=== PATIENT | female | born 1940 | race Caucasian/White ===

== ENCOUNTER 2018-01-16 21:28 | Inpatient (IN) | payer MEDICARE, OTHER ==
[~2018-01-16] VITALS: Ht 152.4 cm; Wt 99.0 kg
[2018-01-16 21:40] VITALS: BP 140/71
[2018-01-16] MEDS ORDERED: Albuterol/Ipratropium 3ml neb HHN ONE (22:30)
[2018-01-16 23:30] VITALS: BP 94/35
[2018-01-17 01:00] VITALS: BP 126/28
--- NOTE | 2018-01-17 01:32 | Emergency Room Report ---
History of Present Illness General Chief Complaint: Dyspnea/Respdistress Source: Patient, EMS Present Illness HPI Patient is 77-year-old female brought in by EMS after increased difficulty breathing. Patient had normally been followed over at [facility]. The patient reports having the onset of symptoms approximately one to 2 hours prior to arrival. Patient had previous surgery to the left breast. Allergies: Coded Allergies: CLINDAMYCIN (Verified Allergy, Unknown, 01/16/18) PENICILLINS (Verified Allergy, Unknown, 01/16/18) PHENYTOIN (Verified Allergy, Unknown, 01/16/18) Patient History Past Medical History: see triage record Now: No Reviewed Nursing Documentation: PMH: Agreed, PSxH: Agreed Nursing Documentation-PMH Hx Hypertension: Yes Hx Cancer: Yes - breast Physical Exam Vital Signs Date Time Temp Pulse Resp B/P (MAP) Pulse Ox O2 Delivery O2 Flow Rate FiO2 01/16/18 21:28 97.7 90 20 140/71 100 Nasal Cannula 2.0 97.7 01/16/18 23:47 28 General Appearance: alert, mild distress, Chronically Ill Eyes: bilateral eye normal inspection ENT: normal pharynx, normal voice Neck: limited range of motion Respiratory: no respiratory distress, crackles Cardiovascular #1: normal peripheral pulses, regular rate, rhythm, edema Gastrointestinal: normal bowel sounds, non tender, soft Genitourinary: no CVA tenderness Musculoskeletal: normal inspection Neurologic: normal inspection, alert, oriented x3, responsive, 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 Differential included but was not limited to anemia, pneumonia, pneumothorax, myocardial infarction, pericardial effusion, congestive heart failure, acidosis. Because of complexity of patient' s case laboratory testing and imaging studies were ordered.The patient was given breathing treatment. She was noted to have evidence of pneumonia on chest x-ray. Patient started on IV Levaquin. The patient was noted to be allergic to penicillin and clindamycin. Urinalysis showed too numerous to count white blood cells consistent with urinary infection. Dr. Medina was contacted for Dr. Bazzi inpatient management Labs Test 01/17/18 01:05 01/17/18 01:20 01/17/18 01:30 White Blood Count 8.5 K/UL (4.8-10.8) Red Blood Count 4.31 M/UL (4.20-5.40) Hemoglobin 11.3 G/DL (12.0-16.0) Hematocrit 35.3 % (37.0-47.0) Mean Corpuscular Volume 82 FL (80-99) Mean Corpuscular Hemoglobin 26.2 PG (27.0-31.0) Mean Corpuscular Hemoglobin Concent 31.9 G/DL (32.0-36.0) Red Cell Distribution Width 16.7 % (11.6-14.8) Platelet Count 249 K/UL (150-450) Mean Platelet Volume 8.0 FL (6.5-10.1) Neutrophils (%) (Auto) 65.2 % (45.0-75.0) Lymphocytes (%) (Auto) 21.6 % (20.0-45.0) Monocytes (%) (Auto) 10.7 % (1.0-10.0) Eosinophils (%) (Auto) 1.6 % (0.0-3.0) Basophils (%) (Auto) 0.9 % (0.0-2.0) Sodium Level 142 MMOL/L (136-145) Potassium Level 2.8 MMOL/L (3.5-5.1) Chloride Level 105 MMOL/L (98-107) Carbon Dioxide Level 33 MMOL/L (21-32) Anion Gap 5 mmol/L (5-15) Blood Urea Nitrogen 13 mg/dL (7-18) Creatinine 0.8 MG/DL (0.55-1.30) Estimat Glomerular Filtration Rate mL/min (>60) Glucose Level 111 MG/DL (74-106) Calcium Level 9.2 MG/DL (8.5-10.1) Phosphorus Level 3.0 MG/DL (2.5-4.9) Magnesium Level 1.4 MG/DL (1.8-2.4) Total Bilirubin 0.3 MG/DL (0.2-1.0) Aspartate Amino Transf (AST/SGOT) 23 U/L (15-37) Alanine Aminotransferase (ALT/SGPT) 28 U/L (12-78) Alkaline Phosphatase 145 U/L (46-116) Total Creatine Kinase 140 U/L (26-308) Creatine Kinase MB 2.2 NG/ML (0.0-3.6) Creatine Kinase MB Relative Index 1.5 Troponin I 0.068 ng/mL (0.000-0.056) Pro-B-Type Natriuretic Peptide 2057 pg/mL (0-125) Total Protein 5.7 G/DL (6.4-8.2) Albumin 2.5 G/DL (3.4-5.0) Globulin 3.2 g/dL Albumin/Globulin Ratio 0.8 (1.0-2.7) Lactic Acid Level 0.60 mmol/L (0.66-2.22) Urine Color Yellow Urine Appearance Cloudy Urine pH 6 (4.5-8.0) Urine Specific [place] 1.015 (1.005-1.035) Urine Protein 2+ (NEGATIVE) Urine Glucose (UA) Negative (NEGATIVE) Urine Ketones Negative (NEGATIVE) Urine Occult Blood 2+ (NEGATIVE) Urine Nitrite Negative (NEGATIVE) Urine Bilirubin Negative (NEGATIVE) Urine Urobilinogen 1 MG/DL (0.0-1.0) Urine Leukocyte Esterase 3+ (NEGATIVE) Urine RBC 2-4 /HPF (0 - 2) Urine WBC Tntc /HPF (0 - 2) Urine Squamous Epithelial Cells Many /LPF (NONE/OCC) Urine Bacteria Many /HPF (NONE) EKG Diagnostic Results Rate: normal Rhythm: NSR ST Segments: no acute changes Rhythm Strip Diag. Results EP Interpretation: yes Rhythm: NSR, no PVC's, no ectopy Last Vital Signs Date Time Temp Pulse Resp B/P (MAP) Pulse Ox O2 Delivery O2 Flow Rate FiO2 01/16/18 23:50 78 20 100 Nasal Cannula 2.0 28 01/16/18 21:40 97.7 140/71 97.7 Status: unchanged Disposition: ADMITTED INPATIENT Condition: Serious Referrals: NOT CHOSEN IPA/,REFERRING (PCP) Kirk Pascual Jan 17, 2018 01:32
[2018-01-17 01:54] LABS: BASOPHILS % (AUTO) 0.9 % (0.0-2.0); EOSINOPHILS % (AUTO) 1.6 % (0.0-3.0); HEMATOCRIT 35.3 % (37.0-47.0); HEMOGLOBIN 11.3 G/DL (12.0-16.0); LYMPHOCYTES % (AUTO) 21.6 % (20.0-45.0); MEAN CORPUSCULAR VOLUME 82 FL (80-99); MONOCYTES % (AUTO) 10.7 % (1.0-10.0); NEUTROPHILS % (AUTO) 65.2 % (45.0-75.0); PLATELET COUNT 249 K/UL (150-450); RED BLOOD COUNT 4.31 M/UL (4.20-5.40); RED CELL DISTRIBUTION WIDTH 16.7 % (11.6-14.8); WHITE BLOOD COUNT 8.5 K/UL (4.8-10.8)
[2018-01-17 01:57] LABS: BILIRUBIN, URINE NEGATIVE (NEGATIVE); GLUCOSE, URINE (UA) NEGATIVE (NEGATIVE); KETONES,URINE NEGATIVE (NEGATIVE); LEUKOCYTE ESTERASE ,URINE 3+ (NEGATIVE); NITRITE,URINE NEGATIVE (NEGATIVE); PH,URINE 6 (4.5-8.0); PROTEIN,URINE 2+ (NEGATIVE); UROBILINOGEN,URINE 1 MG/DL (0.0-1.0)
[2018-01-17 02:03] LABS: ANION GAP 5 mmol/L (5-15); BLOOD UREA NITROGEN 13 mg/dL (7-18); CALCIUM 9.2 MG/DL (8.5-10.1); CARBON DIOXIDE 33 MMOL/L (21-32); CHLORIDE 105 MMOL/L (98-107); CREATININE 0.8 MG/DL (0.55-1.30); POTASSIUM 2.8 MMOL/L (3.5-5.1); SODIUM 142 MMOL/L (136-145)
[2018-01-17 02:09] LABS: APPEARANCE,URINE CLOUDY; COLOR,URINE YELLOW
[2018-01-17 02:20] LABS: ALANINE AMINOTRANSFERASE 28 U/L (12-78); ALBUMIN 2.5 G/DL (3.4-5.0); ALBUMIN/GLOBULIN RATIO 0.8 (1.0-2.7); ALKALINE PHOSPHATASE 145 U/L (46-116); ASPARTATE AMINO TRANSFERASE 23 U/L (15-37); BILIRUBIN,TOTAL 0.3 MG/DL (0.2-1.0); CKMB 2.2 NG/ML (0.0-3.6); CREATINE KINASE 140 U/L (26-308)
[2018-01-17 02:30] VITALS: BP 110/60
[2018-01-17] MEDS ORDERED: BENICAR5 MG ORAL (03:42)
[2018-01-17] MEDS ORDERED: MECLIZINE HCL25 MG ORAL (03:42)
[2018-01-17] MEDS ORDERED: NAMENDA5 MG ORAL (03:42)
[2018-01-17] MEDS ORDERED: FERROUS SULFAT325 MG ORAL (03:42)
[2018-01-17] MEDS ORDERED: DYMISTA NASAL S23 GM NS (03:42)
[2018-01-17] MEDS ORDERED: PLAVIX75 MG ORAL (03:42)
[2018-01-17] MEDS ORDERED: CYMBALTA30 MG ORAL (03:42)
[2018-01-17] MEDS ORDERED: POTASSIUM99 M3 PO (03:42)
[2018-01-17] MEDS ORDERED: LIDOCAINE5 GM TP (03:42)
[2018-01-17 04:15] VITALS: BP 104/37
[2018-01-17] MEDS ORDERED: Hydromorphone 0.5mg/0.5ml inj IVP PRN ×2 (04:15→12:45)
[2018-01-17] MEDS ORDERED: Albuterol/Ipratropium 3ml neb HHN PRN ×2 (04:15→13:30)
[2018-01-17 06:00] VITALS: BP 134/62
[2018-01-17 08:00] VITALS: BP 129/52
[2018-01-17] MEDS ORDERED: Memantine 5 MG TAB ORAL SCH (09:00)
[2018-01-17] MEDS: DULoxetine 30mg cap ORAL SCH (10:21)
[2018-01-17] MEDS: Memantine 10mg tab ORAL SCH (10:22)
[2018-01-17] MEDS: Heparin 5000 units/ml inj SUBQ SCH ×2 (10:22→21:00)
--- NOTE | 2018-01-17 11:30 | Diagnostic Imaging Report ---
Indication: Shortness of breath Technique: One view of the chest Comparison: none Findings: Body habitus limits evaluation. The heart is enlarged. There is mild interstitial congestion. No focal airspace consolidation. However, imaging of the left lung base is limited overlying soft tissue. There severe chronic abnormalities of both shoulders Impression: Limited exam, as described Cardiomegaly Suspect mild interstitial congestion
[2018-01-17] MEDS ORDERED: HYDROcodone/Acetamin 7.5/325 tab ORAL PRN (12:15)
[2018-01-17] MEDS ORDERED: Norco 5mg/325mg tab ORAL PRN (12:15)
--- NOTE | 2018-01-17 12:17 | History and Physical ---
History of Present Illness General Date patient seen: Jan 17, 2018 Time patient seen: 12:17 Reason for Hospitalization: Dyspnea/Respdistress Present Illness HPI 77y/o female with pmh of morbid obesity, chronic diastolic heart failure, pulmonary hypertension, HTN, probable MISSY, abd wall hernia s/p multiple surgeries, SBO, breast cancer s/p lumpectomy and mastectomy, who presents with SOB and abd discomfort w/ swelling. Pt states symptoms have been worsening over the past few weeks. She notes cough with white sputum, congestion. Also c/o heartburn. Normally she can ambulate w/ walker but has been limited 2/2 SOB and because of increasing abd swelling. Notes increased drainage from abd wounds. She states she has multiple prior abd surgeries which have been complicated by wound failure and infection. She had one episode leading to sepsis and was in ICU for 1 month. Denies f/c, n/v, chest pain, dysuria. In ED, there was concern for pneumonia and UTI. Pt was given levaquin, duonebs. Allergies: Coded Allergies: CLINDAMYCIN (Verified Allergy, Unknown, 01/16/18) PENICILLINS (Verified Allergy, Unknown, 01/16/18) PHENYTOIN (Verified Allergy, Unknown, 01/16/18) Medication History Scheduled Clopidogrel Bisulfate* (Plavix*), 75 MG ORAL DAILY, (Reported) Duloxetine Hcl* (Cymbalta*), 30 MG ORAL DAILY, (Reported) Ferrous Sulfate* (Ferrous Sulfate*), 325 MG ORAL DAILY, (Reported) Meclizine Hcl* (Meclizine*), 25 MG ORAL THREE TIMES A DAY, (Reported) Memantine Hcl* (Namenda*), 5 MG ORAL DAILY, (Reported) Olmesartan Medoxomil (Benicar), 5 MG ORAL DAILY, (Reported) Miscellaneous Medications Azelastine/Fluticasone (Dymista Nasal [place]), 23 GM NS, (Reported) Lidocaine (Lidocaine), 5 GM TP, (Reported) Potassium Gluconate (Potassium), 99 MG PO, (Reported) Patient History History Provided By: Patient, Family Member, Medical Record, PMD Healthcare decision maker Resuscitation status Full Code Advanced Directive on File Past Medical/Surgical History Past Medical/Surgical History: (1) Chronic diastolic (congestive) heart failure (2) Morbid obesity (3) Probable MISSY (4) HTN (hypertension) (5) Bilateral breast cancer (6) SBO (small bowel obstruction) (7) Abdominal wall hernia (8) Pulmonary hypertension (9) breast cacncer s/p lumpectomy and mastectomy Family History Family History: Patient reports no known family medical history. Social History Social History: (1) Lives alone with help available Review of Systems Constitutional: Reports: malaise, weakness Eye: Reports: no symptoms ENT: Reports: no symptoms Respiratory: Reports: cough, shortness of breath, MANZANARES Cardiovascular: Reports: no symptoms Gastrointestinal: Reports: abdominal pain Genitourinary: Reports: no symptoms Musculoskeletal: Reports: no symptoms Skin: Reports: no symptoms Psychiatric: Reports: no symptoms Neurological: Reports: no symptoms Endocrine: Reports: no symptoms Hematologic/Lymphatic: Reports: no symptoms Physical Exam Physical Exam Narrative General: alert, cooperative, no distress, appears stated age Head: normocephalic, without obvious abnormality, atraumatic Eyes: conjunctivae/corneas clear. PERRL, EOM's intact Throat: lips, mucosa, and tongue normal. MMM Neck: supple, symmetrical, trachea midline, and no JVD Lungs: clear to auscultation bilaterally Heart: regular rate and rhythm, S1, S2 normal, no murmur, click, rub or gallop Abdomen: soft, obese abd, +large pannus, panniculitis around superficial lower left, prior surgical scars noted, serous drainage noted around pannus from superficial abrasions Extremities: extremities normal, atraumatic, no cyanosis or edema Pulses: 2+ and symmetric Skin: skin color, texture, turgor normal; no rashes or lesions Neurologic: grossly normal, no focal deficits Last 24 Hour Vital Signs Date Time Temp Pulse Resp B/P (MAP) Pulse Ox O2 Delivery O2 Flow Rate FiO2 01/17/18 06:00 97.9 69 18 134/62 96 Nasal Cannula 2.0 97.9 01/17/18 05:30 67 01/17/18 04:39 97.7 72 18 104/37 100 Nasal Cannula 2.0 28 97.7 01/17/18 04:15 72 18 104/37 100 Nasal Cannula 2.0 01/17/18 02:30 71 19 110/60 100 Nasal Cannula 2.0 01/17/18 01:00 78 19 126/28 99 Nasal Cannula 2.0 28 01/16/18 23:50 78 20 100 Nasal Cannula 2.0 28 01/16/18 23:48 74 20 Nasal Cannula 2.0 28 01/16/18 23:47 74 20 100 Nasal Cannula 2.0 28 01/16/18 23:30 72 19 94/35 100 Room Air 01/16/18 21:40 90 20 Nasal Cannula 2.0 01/16/18 21:40 97.7 20 140/71 100 Nasal Cannula 2.0 97.7 01/16/18 21:28 97.7 90 20 140/71 100 Nasal Cannula 2.0 97.7 Intake and Output 01/16/18 01/17/18 19:00 07:00 Intake Total 0 ml Output Total 350 ml Balance -350 ml Intake Oral 0 ml Output Urine Total 350 ml Laboratory Tests Test 01/17/18 01:05 01/17/18 01:20 01/17/18 01:30 01/17/18 10:06 White Blood Count 8.5 K/UL (4.8-10.8) Red Blood Count 4.31 M/UL (4.20-5.40) Hemoglobin 11.3 G/DL (12.0-16.0) L Hematocrit 35.3 % (37.0-47.0) L Mean Corpuscular Volume 82 FL (80-99) Mean Corpuscular Hemoglobin 26.2 PG (27.0-31.0) L Mean Corpuscular Hemoglobin Concent 31.9 G/DL (32.0-36.0) L Red Cell Distribution Width 16.7 % (11.6-14.8) H Platelet Count 249 K/UL (150-450) Mean Platelet Volume 8.0 FL (6.5-10.1) Neutrophils (%) (Auto) 65.2 % (45.0-75.0) Lymphocytes (%) (Auto) 21.6 % (20.0-45.0) Monocytes (%) (Auto) 10.7 % (1.0-10.0) H Eosinophils (%) (Auto) 1.6 % (0.0-3.0) Basophils (%) (Auto) 0.9 % (0.0-2.0) Sodium Level 142 MMOL/L (136-145) Potassium Level 2.8 MMOL/L (3.5-5.1) L Chloride Level 105 MMOL/L (98-107) Carbon Dioxide Level 33 MMOL/L (21-32) H Anion Gap 5 mmol/L (5-15) Blood Urea Nitrogen 13 mg/dL (7-18) Creatinine 0.8 MG/DL (0.55-1.30) Estimat Glomerular Filtration Rate mL/min (>60) Glucose Level 111 MG/DL (74-106) H Calcium Level 9.2 MG/DL (8.5-10.1) Phosphorus Level 3.0 MG/DL (2.5-4.9) Magnesium Level 1.4 MG/DL (1.8-2.4) L Total Bilirubin 0.3 MG/DL (0.2-1.0) Aspartate Amino Transf (AST/SGOT) 23 U/L (15-37) Alanine Aminotransferase (ALT/SGPT) 28 U/L (12-78) Alkaline Phosphatase 145 U/L (46-116) H Total Creatine Kinase 140 U/L (26-308) Creatine Kinase MB 2.2 NG/ML (0.0-3.6) Creatine Kinase MB Relative Index 1.5 Troponin I 0.068 ng/mL (0.000-0.056) 0.053 ng/mL (0.000-0.056) Pro-B-Type Natriuretic Peptide 2057 pg/mL (0-125) H Total Protein 5.7 G/DL (6.4-8.2) L Albumin 2.5 G/DL (3.4-5.0) L Globulin 3.2 g/dL Albumin/Globulin Ratio 0.8 (1.0-2.7) L Lactic Acid Level 0.60 mmol/L (0.66-2.22) L Urine Color Yellow Urine Appearance Cloudy Urine pH 6 (4.5-8.0) Urine Specific [place] 1.015 (1.005-1.035) Urine Protein 2+ (NEGATIVE) H Urine Glucose (UA) Negative (NEGATIVE) Urine Ketones Negative (NEGATIVE) Urine Occult Blood 2+ (NEGATIVE) H Urine Nitrite Negative (NEGATIVE) Urine Bilirubin Negative (NEGATIVE) Urine Urobilinogen 1 MG/DL (0.0-1.0) H Urine Leukocyte Esterase 3+ (NEGATIVE) H Urine RBC 2-4 /HPF (0 - 2) H Urine WBC Tntc /HPF (0 - 2) H Urine Squamous Epithelial Cells Many /LPF (NONE/OCC) H Urine Bacteria Many /HPF (NONE) H Microbiology Date/Time Source Procedure Growth Status 01/17/18 03:50 Nasal Nares Influenza Types A,B Antigen (CHEYENNE) - Final Complete Height (Feet): 5 Height (Inches): 0.00 Weight (Pounds): 234 Medications Current Medications Medications (Trade) Dose Ordered Sig/Wiliam Route PRN Reason Start Time Stop Time Status Last Admin Dose Admin Acetaminophen/ Hydrocodone Bitart ([place] 5/325) 1 tab Q4H PRN ORAL Moderate Pain (Pain Scale 4-6) 01/17/18 12:15 01/24/18 12:14 UNV Acetaminophen/ Hydrocodone Bitart ([place] 7.5/325) 1 tab Q4H PRN ORAL severe pain 01/17/18 12:15 01/24/18 12:14 UNV Albuterol/ Ipratropium (Albuterol/ Ipratropium) 3 ml EVERY 6 HOURS PRN HHN Shortness of Breath 01/17/18 04:15 01/22/18 04:14 Atorvastatin Calcium (Lipitor) 20 mg BEDTIME ORAL 01/17/18 21:00 02/16/18 20:59 Clonazepam (KlonoPIN) 1 mg BEDTIME ORAL 01/17/18 21:00 01/24/18 20:59 Clopidogrel Bisulfate (Plavix) 75 mg DAILY ORAL 01/17/18 09:00 02/16/18 08:59 01/17/18 10:21 Dextrose (Dextrose 50%) STAT PRN IV Hypoglycemia 01/17/18 04:15 02/16/18 04:14 Duloxetine HCl (Cymbalta) 30 mg DAILY ORAL 01/17/18 09:00 02/16/18 08:59 01/17/18 10:21 Ferrous Sulfate (Feosol) 325 mg DAILY ORAL 01/17/18 09:00 02/16/18 08:59 01/17/18 10:21 Heparin Sodium (Porcine) (Heparin 5000 units/ml) 5,000 units EVERY 12 HOURS SUBQ 01/17/18 09:00 02/16/18 08:59 01/17/18 10:22 Hydromorphone HCl (Dilaudid) 0.5 mg EVERY 4 HOURS PRN IVP For Pain 01/17/18 04:15 01/24/18 04:14 Levofloxacin 150 ml @ 100 mls/hr Q24H IVPB 01/17/18 10:30 01/24/18 10:29 01/17/18 10:20 Magnesium Sulfate 100 ml @ 100 mls/hr Q1H IVPB 01/17/18 12:15 01/17/18 14:14 UNV Memantine (Namenda) 10 mg Q12HR ORAL 01/17/18 10:00 02/16/18 09:59 01/17/18 10:22 Non-Formulary Medication (Non-Formulary Med) 1 ea DAILY ORAL 01/17/18 12:15 02/16/18 12:14 UNV Ramelteon (Rozerem) 8 mg QHS ORAL 01/17/18 21:00 02/16/18 20:59 UNV Triamcinolone Acetonide (Kenalog 0.025% Oint) 1 applic THREE TIMES A DAY TOPIC 01/17/18 13:00 02/16/18 12:59 UNV Assessment/Plan Problem List: (1) Acute on chronic diastolic (congestive) heart failure ICD Codes: I50.33 - Acute on chronic diastolic (congestive) heart failure SNOMED: 26110481, 284892610 (2) UTI (urinary tract infection) ICD Codes: N39.0 - Urinary tract infection, site not specified SNOMED: 68272370 (3) Panniculitis ICD Codes: M79.3 - Panniculitis, unspecified SNOMED: 85112573 (4) Abdominal wall cellulitis ICD Codes: L03.311 - Cellulitis of abdominal wall SNOMED: 42861493 (5) Morbid obesity ICD Codes: E66.01 - Morbid (severe) obesity due to excess calories SNOMED: 453591512, 70020643176458 (6) Probable MISSY (7) HTN (hypertension) ICD Codes: I10 - Essential (primary) hypertension SNOMED: 62692523 (8) Hypokalemia ICD Codes: E87.6 - Hypokalemia SNOMED: 56087848 (9) Hypomagnesemia ICD Codes: E83.42 - Hypomagnesemia SNOMED: 296694707 Status: stable Assessment/Plan Initial concern for pneumonia, but CXR appears to show congestion rather than consolidation/infiltrate. Admit inpt Pulm, ID, gen surgery consulted Empiric IV abx per ID: vanco, levaquin, tobramycin for coverage of UTI, skin/ soft tissue infection F/u cultures Check CTA chest/abd/pelvis Check TTE Consider IV diuresis Cont O2 and wean as tolerated Duonebs ATC and PRN Suction PRN Swallow eval Wound care Replete lytes Cont home meds Pain control, bowel regimen Supportive care PT/OT DVT Prophylaxis: SCD, HSQ Code Status: Full Hospital Classification Declaration: Based on this initial evaluation, and depending on the patient's clinical course, I anticipate that this patient will require hospitalization for 2-3 days for UTI, panniculitis/abd wall cellulitis, CHF and close respiratory/hemodynamic monitoring. Disposition: Once the patient is stable to leave the hospital, I anticipate the patient will likely be discharged to the following environment: home with HH vs SNF (pt declines SNF) I spent 73 minutes on this patient's case, and >50% was dedicated to counseling and/or care coordination. Discussed with patient/family, nursing staff, SW/KINZA, pulm, ID, gen surg regarding clinical status, treatment course, and disposition planning. Time of note may not reflect time of encounter. Yolanda Saez M.D. Jan 17, 2018 12:17
[2018-01-17 12:40] LABS: ANION GAP 10 mmol/L (5-15); BLOOD UREA NITROGEN 11 mg/dL (7-18); CALCIUM 9.2 MG/DL (8.5-10.1); CARBON DIOXIDE 28 MMOL/L (21-32); CHLORIDE 106 MMOL/L (98-107); CREATININE 0.7 MG/DL (0.55-1.30); POTASSIUM 3.1 MMOL/L (3.5-5.1); SODIUM 144 MMOL/L (136-145)
--- NOTE | 2018-01-17 12:41 | Consultation ---
History of Present Illness General Date patient seen: Jan 17, 2018 Chief Complaint: Dyspnea/Respdistress Present Illness HPI 77-year-old female with hx of depression and anxiety d/o brought in by EMS after increased difficulty breathing. the pt has been pw anxiety as she has not taken her klonopin and roseram. the pt was cooperative and no behavioral issues. Allergies: Coded Allergies: CLINDAMYCIN (Verified Allergy, Unknown, 01/16/18) PENICILLINS (Verified Allergy, Unknown, 01/16/18) PHENYTOIN (Verified Allergy, Unknown, 01/16/18) Medication History Scheduled Clopidogrel Bisulfate* (Plavix*), 75 MG ORAL DAILY, (Reported) Duloxetine Hcl* (Cymbalta*), 30 MG ORAL DAILY, (Reported) Ferrous Sulfate* (Ferrous Sulfate*), 325 MG ORAL DAILY, (Reported) Meclizine Hcl* (Meclizine*), 25 MG ORAL THREE TIMES A DAY, (Reported) Memantine Hcl* (Namenda*), 5 MG ORAL DAILY, (Reported) Olmesartan Medoxomil (Benicar), 5 MG ORAL DAILY, (Reported) Miscellaneous Medications Azelastine/Fluticasone (Dymista Nasal [place]), 23 GM NS, (Reported) Lidocaine (Lidocaine), 5 GM TP, (Reported) Potassium Gluconate (Potassium), 99 MG PO, (Reported) Patient History Healthcare decision maker Resuscitation status Full Code Advanced Directive on File Past Medical/Surgical History Past Medical/Surgical History: (1) UTI (urinary tract infection) (2) Pneumonia Review of Systems Psychiatric: Reports: prior hx, anxiety, depressed feelings Physical Exam General Appearance: no apparent distress, alert Neurologic: alert, oriented x 3, responsive, depressed affect Last 24 Hour Vital Signs Date Time Temp Pulse Resp B/P (MAP) Pulse Ox O2 Delivery O2 Flow Rate FiO2 01/17/18 06:00 97.9 69 18 134/62 96 Nasal Cannula 2.0 97.9 01/17/18 05:30 67 01/17/18 04:39 97.7 72 18 104/37 100 Nasal Cannula 2.0 28 97.7 01/17/18 04:15 72 18 104/37 100 Nasal Cannula 2.0 01/17/18 02:30 71 19 110/60 100 Nasal Cannula 2.0 01/17/18 01:00 78 19 126/28 99 Nasal Cannula 2.0 28 01/16/18 23:50 78 20 100 Nasal Cannula 2.0 28 01/16/18 23:48 74 20 Nasal Cannula 2.0 28 01/16/18 23:47 74 20 100 Nasal Cannula 2.0 28 01/16/18 23:30 72 19 94/35 100 Room Air 01/16/18 21:40 90 20 Nasal Cannula 2.0 01/16/18 21:40 97.7 20 140/71 100 Nasal Cannula 2.0 97.7 01/16/18 21:28 97.7 90 20 140/71 100 Nasal Cannula 2.0 97.7 Intake and Output 01/16/18 01/17/18 19:00 07:00 Intake Total 0 ml Output Total 350 ml Balance -350 ml Intake Oral 0 ml Output Urine Total 350 ml Laboratory Tests Test 01/17/18 01:05 01/17/18 01:20 01/17/18 01:30 01/17/18 10:06 White Blood Count 8.5 K/UL (4.8-10.8) Red Blood Count 4.31 M/UL (4.20-5.40) Hemoglobin 11.3 G/DL (12.0-16.0) L Hematocrit 35.3 % (37.0-47.0) L Mean Corpuscular Volume 82 FL (80-99) Mean Corpuscular Hemoglobin 26.2 PG (27.0-31.0) L Mean Corpuscular Hemoglobin Concent 31.9 G/DL (32.0-36.0) L Red Cell Distribution Width 16.7 % (11.6-14.8) H Platelet Count 249 K/UL (150-450) Mean Platelet Volume 8.0 FL (6.5-10.1) Neutrophils (%) (Auto) 65.2 % (45.0-75.0) Lymphocytes (%) (Auto) 21.6 % (20.0-45.0) Monocytes (%) (Auto) 10.7 % (1.0-10.0) H Eosinophils (%) (Auto) 1.6 % (0.0-3.0) Basophils (%) (Auto) 0.9 % (0.0-2.0) Sodium Level 142 MMOL/L (136-145) Pending Potassium Level 2.8 MMOL/L (3.5-5.1) L Pending Chloride Level 105 MMOL/L (98-107) Pending Carbon Dioxide Level 33 MMOL/L (21-32) H Pending Anion Gap 5 mmol/L (5-15) Blood Urea Nitrogen 13 mg/dL (7-18) Pending Creatinine 0.8 MG/DL (0.55-1.30) Pending Estimat Glomerular Filtration Rate mL/min (>60) Pending Glucose Level 111 MG/DL (74-106) H Pending Calcium Level 9.2 MG/DL (8.5-10.1) Pending Phosphorus Level 3.0 MG/DL (2.5-4.9) Magnesium Level 1.4 MG/DL (1.8-2.4) L Total Bilirubin 0.3 MG/DL (0.2-1.0) Aspartate Amino Transf (AST/SGOT) 23 U/L (15-37) Alanine Aminotransferase (ALT/SGPT) 28 U/L (12-78) Alkaline Phosphatase 145 U/L (46-116) H Total Creatine Kinase 140 U/L (26-308) Creatine Kinase MB 2.2 NG/ML (0.0-3.6) Creatine Kinase MB Relative Index 1.5 Troponin I 0.068 ng/mL (0.000-0.056) 0.053 ng/mL (0.000-0.056) Pro-B-Type Natriuretic Peptide 2057 pg/mL (0-125) H Total Protein 5.7 G/DL (6.4-8.2) L Albumin 2.5 G/DL (3.4-5.0) L Globulin 3.2 g/dL Albumin/Globulin Ratio 0.8 (1.0-2.7) L Lactic Acid Level 0.60 mmol/L (0.66-2.22) L Urine Color Yellow Urine Appearance Cloudy Urine pH 6 (4.5-8.0) Urine Specific [place] 1.015 (1.005-1.035) Urine Protein 2+ (NEGATIVE) H Urine Glucose (UA) Negative (NEGATIVE) Urine Ketones Negative (NEGATIVE) Urine Occult Blood 2+ (NEGATIVE) H Urine Nitrite Negative (NEGATIVE) Urine Bilirubin Negative (NEGATIVE) Urine Urobilinogen 1 MG/DL (0.0-1.0) H Urine Leukocyte Esterase 3+ (NEGATIVE) H Urine RBC 2-4 /HPF (0 - 2) H Urine WBC Tntc /HPF (0 - 2) H Urine Squamous Epithelial Cells Many /LPF (NONE/OCC) H Urine Bacteria Many /HPF (NONE) H Microbiology Date/Time Source Procedure Growth Status 01/17/18 03:50 Nasal Nares Influenza Types A,B Antigen ([place]) - Final Complete Height (Feet): 5 Height (Inches): 0.00 Weight (Pounds): 234 Medications Current Medications Medications (Trade) Dose Ordered Sig/Wiliam Route PRN Reason Start Time Stop Time Status Last Admin Dose Admin Acetaminophen/ Hydrocodone Bitart ([place] 5/325) 1 tab Q4H PRN ORAL Moderate Pain (Pain Scale 4-6) 01/17/18 12:15 01/24/18 12:14 Acetaminophen/ Hydrocodone Bitart ([place] 7.5/325) 1 tab Q4H PRN ORAL Severe Pain (Pain Scale 7-10) 01/17/18 12:15 01/24/18 12:14 Albuterol/ Ipratropium (Albuterol/ Ipratropium) 3 ml EVERY 6 HOURS PRN HHN Shortness of Breath 01/17/18 04:15 01/22/18 04:14 Atorvastatin Calcium (Lipitor) 20 mg BEDTIME ORAL 01/17/18 21:00 02/16/18 20:59 Clonazepam (KlonoPIN) 1 mg BEDTIME ORAL 01/17/18 21:00 01/24/18 20:59 Clopidogrel Bisulfate (Plavix) 75 mg DAILY ORAL 01/17/18 09:00 02/16/18 08:59 01/17/18 10:21 Dextrose (Dextrose 50%) STAT PRN IV Hypoglycemia 01/17/18 04:15 02/16/18 04:14 Duloxetine HCl (Cymbalta) 30 mg DAILY ORAL 01/17/18 09:00 02/16/18 08:59 01/17/18 10:21 Ferrous Sulfate (Feosol) 325 mg DAILY ORAL 01/17/18 09:00 02/16/18 08:59 01/17/18 10:21 Heparin Sodium (Porcine) (Heparin 5000 units/ml) 5,000 units EVERY 12 HOURS SUBQ 01/17/18 09:00 4/15/18 08:59 01/17/18 10:22 Hydromorphone HCl (Dilaudid) 0.5 mg EVERY 4 HOURS PRN IVP SEVERE BREAKTHROUGH PAIN 01/17/18 12:45 01/24/18 04:14 Levofloxacin 150 ml @ 100 mls/hr Q24H IVPB 01/17/18 10:30 01/24/18 10:29 01/17/18 10:20 Magnesium Sulfate 100 ml @ 100 mls/hr Q1H IVPB 01/17/18 12:15 01/17/18 14:14 UNV Memantine (Namenda) 10 mg Q12HR ORAL 01/17/18 10:00 02/16/18 09:59 01/17/18 10:22 Non-Formulary Medication (Non-Formulary Med) 1 ea DAILY ORAL 01/17/18 12:15 02/16/18 12:14 UNV Ramelteon (Rozerem) 8 mg QHS ORAL 01/17/18 21:00 02/16/18 20:59 UNV Triamcinolone Acetonide (Kenalog 0.025% Oint) 1 applic THREE TIMES A DAY TOPIC 01/17/18 13:00 02/16/18 12:59 UNV Assessment/Plan Status: stable Assessment/Plan mdd anxiety Cymbalta 30mg q daily Klonopin 1mg qhs no roseram on formulary Jarek Kemp M.D. Jan 17, 2018 12:41
[2018-01-17] MEDS ORDERED: Triamcinolone 0.025% oint TOPIC SCH (13:00)
[2018-01-17] MEDS ORDERED: guaiFENesin 100mg/5ml Liq ud ORAL PRN (13:30)
[2018-01-17] MEDS: Pantoprazole Inj IVP SCH (13:53)
[2018-01-17] MEDS: guaiFENesin ER 600mg tab ORAL SCH ×2 (13:54→17:45)
--- NOTE | 2018-01-17 14:52 | Consultation ---
History of Present Illness General Date patient seen: Jan 17, 2018 Chief Complaint: Dyspnea/Respdistress Reason for Consultation: abdominal pain Present Illness HPI 77 year old female with multiple medical comorbidities and multiple prior complicated abdominal hernia surgeries presented with respiratory difficulty. States that she was home when she began having some respiratory difficulty. Was admitted for medical care and management. During admission states abdominal discomfort and discusses her multiple prior surgeries. States she had 6-7 prior surgeries most of which were complicated by infection and wound failure. States that on one occasion she had necrotic tissue leading to sepsis and was in the ICU in a come for 1 month. Has very large pannus with chronic abrasions and skin changes. abdominal pain described as discomfort. no obstructive symptoms. no n/v//f/c. normal BM's. surgery called to evaluate abdomen/pain Allergies: Coded Allergies: CLINDAMYCIN (Verified Allergy, Unknown, 01/16/18) PENICILLINS (Verified Allergy, Unknown, 01/16/18) PHENYTOIN (Verified Allergy, Unknown, 01/16/18) Medication History Scheduled Clopidogrel Bisulfate* (Plavix*), 75 MG ORAL DAILY, (Reported) Duloxetine Hcl* (Cymbalta*), 30 MG ORAL DAILY, (Reported) Ferrous Sulfate* (Ferrous Sulfate*), 325 MG ORAL DAILY, (Reported) Meclizine Hcl* (Meclizine*), 25 MG ORAL THREE TIMES A DAY, (Reported) Memantine Hcl* (Namenda*), 5 MG ORAL DAILY, (Reported) Olmesartan Medoxomil (Benicar), 5 MG ORAL DAILY, (Reported) Miscellaneous Medications Azelastine/Fluticasone (Dymista Nasal [place]), 23 GM NS, (Reported) Lidocaine (Lidocaine), 5 GM TP, (Reported) Potassium Gluconate (Potassium), 99 MG PO, (Reported) Patient History History Provided By: Patient, Medical Record Healthcare decision maker Resuscitation status Full Code Advanced Directive on File Past Medical/Surgical History Past Medical/Surgical History: (1) Obesities, morbid (2) Panniculitis (3) UTI (urinary tract infection) (4) Pneumonia Review of Systems All Other Systems: negative except mentioned in HPI Physical Exam General Appearance: no apparent distress Lines, tubes and drains: peripheral HEENT: normocephalic, atraumatic Neck: non-tender, supple Respiratory/Chest: chest wall non-tender, normal breath sounds, decreased breath sounds Cardiovascular/Chest: normal peripheral pulses Abdomen: soft, other - soft, non tender, over obese, very large pannus, panniculitis around superficial lower left, prior surgical scars noted. serous drainage noted around pannus from superficial abrasions Extremities: no cyanosis Neurologic: alert, oriented x 3, responsive Last 24 Hour Vital Signs Date Time Temp Pulse Resp B/P (MAP) Pulse Ox O2 Delivery O2 Flow Rate FiO2 01/17/18 06:00 97.9 69 18 134/62 96 Nasal Cannula 2.0 97.9 01/17/18 05:30 67 01/17/18 04:39 97.7 72 18 104/37 100 Nasal Cannula 2.0 28 97.7 01/17/18 04:15 72 18 104/37 100 Nasal Cannula 2.0 01/17/18 02:30 71 19 110/60 100 Nasal Cannula 2.0 01/17/18 01:00 78 19 126/28 99 Nasal Cannula 2.0 28 01/16/18 23:50 78 20 100 Nasal Cannula 2.0 28 01/16/18 23:48 74 20 Nasal Cannula 2.0 28 01/16/18 23:47 74 20 100 Nasal Cannula 2.0 28 01/16/18 23:30 72 19 94/35 100 Room Air 01/16/18 21:40 90 20 Nasal Cannula 2.0 01/16/18 21:40 97.7 20 140/71 100 Nasal Cannula 2.0 97.7 01/16/18 21:28 97.7 90 20 140/71 100 Nasal Cannula 2.0 97.7 Intake and Output 01/16/18 01/17/18 19:00 07:00 Intake Total 0 ml Output Total 350 ml Balance -350 ml Intake Oral 0 ml Output Urine Total 350 ml Laboratory Tests Test 01/17/18 01:05 01/17/18 01:20 01/17/18 01:30 01/17/18 10:06 White Blood Count 8.5 K/UL (4.8-10.8) Red Blood Count 4.31 M/UL (4.20-5.40) Hemoglobin 11.3 G/DL (12.0-16.0) L Hematocrit 35.3 % (37.0-47.0) L Mean Corpuscular Volume 82 FL (80-99) Mean Corpuscular Hemoglobin 26.2 PG (27.0-31.0) L Mean Corpuscular Hemoglobin Concent 31.9 G/DL (32.0-36.0) L Red Cell Distribution Width 16.7 % (11.6-14.8) H Platelet Count 249 K/UL (150-450) Mean Platelet Volume 8.0 FL (6.5-10.1) Neutrophils (%) (Auto) 65.2 % (45.0-75.0) Lymphocytes (%) (Auto) 21.6 % (20.0-45.0) Monocytes (%) (Auto) 10.7 % (1.0-10.0) H Eosinophils (%) (Auto) 1.6 % (0.0-3.0) Basophils (%) (Auto) 0.9 % (0.0-2.0) Sodium Level 142 MMOL/L (136-145) 144 MMOL/L (136-145) Potassium Level 2.8 MMOL/L (3.5-5.1) L 3.1 MMOL/L (3.5-5.1) L Chloride Level 105 MMOL/L (98-107) 106 MMOL/L (98-107) Carbon Dioxide Level 33 MMOL/L (21-32) H 28 MMOL/L (21-32) Anion Gap 5 mmol/L (5-15) 10 mmol/L (5-15) Blood Urea Nitrogen 13 mg/dL (7-18) 11 mg/dL (7-18) Creatinine 0.8 MG/DL (0.55-1.30) 0.7 MG/DL (0.55-1.30) Estimat Glomerular Filtration Rate mL/min (>60) mL/min (>60) Glucose Level 111 MG/DL (74-106) H 94 MG/DL (74-106) Calcium Level 9.2 MG/DL (8.5-10.1) 9.2 MG/DL (8.5-10.1) Phosphorus Level 3.0 MG/DL (2.5-4.9) Magnesium Level 1.4 MG/DL (1.8-2.4) L Total Bilirubin 0.3 MG/DL (0.2-1.0) Aspartate Amino Transf (AST/SGOT) 23 U/L (15-37) Alanine Aminotransferase (ALT/SGPT) 28 U/L (12-78) Alkaline Phosphatase 145 U/L (46-116) H Total Creatine Kinase 140 U/L (26-308) Creatine Kinase MB 2.2 NG/ML (0.0-3.6) Creatine Kinase MB Relative Index 1.5 Troponin I 0.068 ng/mL (0.000-0.056) 0.053 ng/mL (0.000-0.056) Pro-B-Type Natriuretic Peptide 2057 pg/mL (0-125) H Total Protein 5.7 G/DL (6.4-8.2) L Albumin 2.5 G/DL (3.4-5.0) L Globulin 3.2 g/dL Albumin/Globulin Ratio 0.8 (1.0-2.7) L Lactic Acid Level 0.60 mmol/L (0.66-2.22) L Urine Color Yellow Urine Appearance Cloudy Urine pH 6 (4.5-8.0) Urine Specific [place] 1.015 (1.005-1.035) Urine Protein 2+ (NEGATIVE) H Urine Glucose (UA) Negative (NEGATIVE) Urine Ketones Negative (NEGATIVE) Urine Occult Blood 2+ (NEGATIVE) H Urine Nitrite Negative (NEGATIVE) Urine Bilirubin Negative (NEGATIVE) Urine Urobilinogen 1 MG/DL (0.0-1.0) H Urine Leukocyte Esterase 3+ (NEGATIVE) H Urine RBC 2-4 /HPF (0 - 2) H Urine WBC Tntc /HPF (0 - 2) H Urine Squamous Epithelial Cells Many /LPF (NONE/OCC) H Urine Bacteria Many /HPF (NONE) H Microbiology Date/Time Source Procedure Growth Status 01/17/18 03:50 Nasal Nares Influenza Types A,B Antigen ([place]) - Final Complete Height (Feet): 5 Height (Inches): 0.00 Weight (Pounds): 234 Medications Current Medications Medications (Trade) Dose Ordered Sig/Wiliam Route PRN Reason Start Time Stop Time Status Last Admin Dose Admin Acetaminophen/ Hydrocodone Bitart ([place] 5/325) 1 tab Q4H PRN ORAL Moderate Pain (Pain Scale 4-6) 01/17/18 12:15 01/24/18 12:14 Acetaminophen/ Hydrocodone Bitart ([place] 7.5/325) 1 tab Q4H PRN ORAL Severe Pain (Pain Scale 7-10) 01/17/18 12:15 01/24/18 12:14 Albuterol/ Ipratropium (Albuterol/ Ipratropium) 3 ml Q4H PRN HHN Shortness of Breath 01/17/18 13:30 01/22/18 13:29 Albuterol/ Ipratropium (Albuterol/ Ipratropium) 3 ml Q6HRT HHN 01/17/18 19:00 01/22/18 18:59 Atorvastatin Calcium (Lipitor) 20 mg BEDTIME ORAL 01/17/18 21:00 02/16/18 20:59 Benzonatate (Tessalon Perles) 100 mg THREE TIMES A DAY ORAL 01/17/18 18:00 02/16/18 17:59 Clonazepam (KlonoPIN) 1 mg BEDTIME ORAL 01/17/18 21:00 01/24/18 20:59 Clopidogrel Bisulfate (Plavix) 75 mg DAILY ORAL 01/17/18 09:00 02/16/18 08:59 01/17/18 10:21 Dextrose (Dextrose 50%) STAT PRN IV Hypoglycemia 01/17/18 04:15 02/16/18 04:14 Duloxetine HCl (Cymbalta) 30 mg DAILY ORAL 01/17/18 09:00 02/16/18 08:59 01/17/18 10:21 Ferrous Sulfate (Feosol) 325 mg DAILY ORAL 01/17/18 09:00 02/16/18 08:59 01/17/18 10:21 Guaifenesin (Mucinex ER) 600 mg TWICE A DAY ORAL 01/17/18 13:30 02/16/18 13:29 01/17/18 13:54 Guaifenesin (Robitussin) 200 mg Q4H PRN ORAL For Cough 01/17/18 13:30 02/16/18 13:29 Heparin Sodium (Porcine) (Heparin 5000 units/ml) 5,000 units EVERY 12 HOURS SUBQ 01/17/18 09:00 02/16/18 08:59 01/17/18 10:22 Hydromorphone HCl (Dilaudid) 0.5 mg EVERY 4 HOURS PRN IVP SEVERE BREAKTHROUGH PAIN 01/17/18 12:45 01/24/18 04:14 Irbesartan (Avapro) 75 mg DAILY ORAL 01/18/18 09:00 02/17/18 08:59 Levofloxacin 150 ml @ 100 mls/hr Q24H IVPB 01/17/18 10:30 01/24/18 10:29 01/17/18 10:20 Magnesium Sulfate 100 ml @ 100 mls/hr Q1H IVPB 01/17/18 13:00 01/17/18 14:59 01/17/18 13:53 Memantine (Namenda) 10 mg Q12HR ORAL 01/17/18 10:00 02/16/18 09:59 01/17/18 10:22 Nystatin (Nystop Powder) 1 applic THREE TIMES A DAY TOPIC 01/17/18 18:00 02/16/18 17:59 UNV Pantoprazole (Protonix) 40 mg EVERY 12 HOURS IVP 01/17/18 13:30 02/16/18 13:29 01/17/18 13:53 Ramelteon (Rozerem) 8 mg QHS ORAL 01/17/18 21:00 02/16/18 20:59 Triamcinolone Acetonide (Kenalog 0.025% Oint) 1 applic THREE TIMES A DAY TOPIC 01/17/18 13:00 02/16/18 12:59 UNV Assessment/Plan Problem List: (1) Panniculitis Assessment & Plan: 77F with multiple prior abdominal surgeries for hernia with prior complications and recurrence. Has large pannus with mild superficial panniculitis. currently admitted for respiratory problems. abdominal discomfort minimal. no signs of symptoms of obstruction. hernia large and abdomen benign except for chronic issues such as pannus. -no surgical intervention necessary. -will obtain CT to evaluate for possible underlying abscess but very unlikely. on exam chronic skin changes from pannus and mild superficial abrasions from pannus on thigh with moist skin. -okay for diet -would NOT recommend hernia surgery unless emergency (not reducible or strangulated) thank you for this consult. will follow with recs ICD Codes: M79.3 - Panniculitis, unspecified SNOMED: [id number] Status: stable Adriano Lopez Jan 17, 2018 14:52
[2018-01-17] MEDS ORDERED: Tobramyicin Rx to dose MISC PRN (15:45)
--- NOTE | 2018-01-17 16:05 | Infectious Diseases Prog Note ---
Assessment/Plan Assessment/Plan Full consult dictated: A) 1) uti, ? cap, panniculitis/abdominal wall cellulitis, fungal rash 2) pmh noted 3) allergy - pcn, clindamycin, phenytoin P) 1) vancomycin, tobramycin and levofloxacin 2) check urine culture, sputum culture, labs and chest x-ray 3) ct abdomen and pelvis ordered 4) thank you Subjective Allergies: Coded Allergies: CLINDAMYCIN (Verified Allergy, Unknown, 01/16/18) PENICILLINS (Verified Allergy, Unknown, 01/16/18) PHENYTOIN (Verified Allergy, Unknown, 01/16/18) Objective Vital Signs Last 24 Hour Vital Signs Date Time Temp Pulse Resp B/P (MAP) Pulse Ox O2 Delivery O2 Flow Rate FiO2 01/17/18 08:00 97.2 66 19 129/52 98 Nasal Cannula 2.0 97.2 01/17/18 06:00 97.9 69 18 134/62 96 Nasal Cannula 2.0 97.9 01/17/18 05:30 67 01/17/18 04:39 97.7 72 18 104/37 100 Nasal Cannula 2.0 28 97.7 01/17/18 04:15 72 18 104/37 100 Nasal Cannula 2.0 01/17/18 02:30 71 19 110/60 100 Nasal Cannula 2.0 01/17/18 01:00 78 19 126/28 99 Nasal Cannula 2.0 28 01/16/18 23:50 78 20 100 Nasal Cannula 2.0 28 01/16/18 23:48 74 20 Nasal Cannula 2.0 28 01/16/18 23:47 74 20 100 Nasal Cannula 2.0 28 01/16/18 23:30 72 19 94/35 100 Room Air 01/16/18 21:40 90 20 Nasal Cannula 2.0 01/16/18 21:40 97.7 20 140/71 100 Nasal Cannula 2.0 97.7 01/16/18 21:28 97.7 90 20 140/71 100 Nasal Cannula 2.0 97.7 Height (Feet): 5 Height (Inches): 0.00 Weight (Pounds): 234 Microbiology Date/Time Source Procedure Growth Status 01/17/18 03:50 Nasal Nares Influenza Types A,B Antigen ([place]) - Final Complete Laboratory Tests Test 01/17/18 01:05 01/17/18 01:20 01/17/18 01:30 01/17/18 10:06 White Blood Count 8.5 K/UL (4.8-10.8) Red Blood Count 4.31 M/UL (4.20-5.40) Hemoglobin 11.3 G/DL (12.0-16.0) L Hematocrit 35.3 % (37.0-47.0) L Mean Corpuscular Volume 82 FL (80-99) Mean Corpuscular Hemoglobin 26.2 PG (27.0-31.0) L Mean Corpuscular Hemoglobin Concent 31.9 G/DL (32.0-36.0) L Red Cell Distribution Width 16.7 % (11.6-14.8) H Platelet Count 249 K/UL (150-450) Mean Platelet Volume 8.0 FL (6.5-10.1) Neutrophils (%) (Auto) 65.2 % (45.0-75.0) Lymphocytes (%) (Auto) 21.6 % (20.0-45.0) Monocytes (%) (Auto) 10.7 % (1.0-10.0) H Eosinophils (%) (Auto) 1.6 % (0.0-3.0) Basophils (%) (Auto) 0.9 % (0.0-2.0) Sodium Level 142 MMOL/L (136-145) 144 MMOL/L (136-145) Potassium Level 2.8 MMOL/L (3.5-5.1) L 3.1 MMOL/L (3.5-5.1) L Chloride Level 105 MMOL/L (98-107) 106 MMOL/L (98-107) Carbon Dioxide Level 33 MMOL/L (21-32) H 28 MMOL/L (21-32) Anion Gap 5 mmol/L (5-15) 10 mmol/L (5-15) Blood Urea Nitrogen 13 mg/dL (7-18) 11 mg/dL (7-18) Creatinine 0.8 MG/DL (0.55-1.30) 0.7 MG/DL (0.55-1.30) Estimat Glomerular Filtration Rate mL/min (>60) mL/min (>60) Glucose Level 111 MG/DL (74-106) H 94 MG/DL (74-106) Calcium Level 9.2 MG/DL (8.5-10.1) 9.2 MG/DL (8.5-10.1) Phosphorus Level 3.0 MG/DL (2.5-4.9) Magnesium Level 1.4 MG/DL (1.8-2.4) L Total Bilirubin 0.3 MG/DL (0.2-1.0) Aspartate Amino Transf (AST/SGOT) 23 U/L (15-37) Alanine Aminotransferase (ALT/SGPT) 28 U/L (12-78) Alkaline Phosphatase 145 U/L (46-116) H Total Creatine Kinase 140 U/L (26-308) Creatine Kinase MB 2.2 NG/ML (0.0-3.6) Creatine Kinase MB Relative Index 1.5 Troponin I 0.068 ng/mL (0.000-0.056) 0.053 ng/mL (0.000-0.056) Pro-B-Type Natriuretic Peptide 2057 pg/mL (0-125) H Total Protein 5.7 G/DL (6.4-8.2) L Albumin 2.5 G/DL (3.4-5.0) L Globulin 3.2 g/dL Albumin/Globulin Ratio 0.8 (1.0-2.7) L Lactic Acid Level 0.60 mmol/L (0.66-2.22) L Urine Color Yellow Urine Appearance Cloudy Urine pH 6 (4.5-8.0) Urine Specific [place] 1.015 (1.005-1.035) Urine Protein 2+ (NEGATIVE) H Urine Glucose (UA) Negative (NEGATIVE) Urine Ketones Negative (NEGATIVE) Urine Occult Blood 2+ (NEGATIVE) H Urine Nitrite Negative (NEGATIVE) Urine Bilirubin Negative (NEGATIVE) Urine Urobilinogen 1 MG/DL (0.0-1.0) H Urine Leukocyte Esterase 3+ (NEGATIVE) H Urine RBC 2-4 /HPF (0 - 2) H Urine WBC Tntc /HPF (0 - 2) H Urine Squamous Epithelial Cells Many /LPF (NONE/OCC) H Urine Bacteria Many /HPF (NONE) H Test 01/17/18 10:30 D-Dimer 0.66 mg/L FEU (0.00-0.49) H Current Medications Medications (Trade) Dose Ordered Sig/Wiliam Route PRN Reason Start Time Stop Time Status Last Admin Dose Admin Acetaminophen/ Hydrocodone Bitart ([place] 5/325) 1 tab Q4H PRN ORAL Moderate Pain (Pain Scale 4-6) 01/17/18 12:15 01/24/18 12:14 Acetaminophen/ Hydrocodone Bitart ([place] 7.5/325) 1 tab Q4H PRN ORAL Severe Pain (Pain Scale 7-10) 01/17/18 12:15 01/24/18 12:14 Albuterol/ Ipratropium (Albuterol/ Ipratropium) 3 ml Q4H PRN HHN Shortness of Breath 01/17/18 13:30 01/22/18 13:29 Albuterol/ Ipratropium (Albuterol/ Ipratropium) 3 ml Q6HRT HHN 01/17/18 19:00 01/22/18 18:59 Atorvastatin Calcium (Lipitor) 20 mg BEDTIME ORAL 01/17/18 21:00 02/16/18 20:59 Benzonatate (Tessalon Perles) 100 mg THREE TIMES A DAY ORAL 01/17/18 18:00 02/16/18 17:59 Clonazepam (KlonoPIN) 1 mg BEDTIME ORAL 01/17/18 21:00 01/24/18 20:59 Clopidogrel Bisulfate (Plavix) 75 mg DAILY ORAL 01/17/18 09:00 02/16/18 08:59 01/17/18 10:21 Dextrose (Dextrose 50%) STAT PRN IV Hypoglycemia 01/17/18 04:15 02/16/18 04:14 Duloxetine HCl (Cymbalta) 30 mg DAILY ORAL 01/17/18 09:00 02/16/18 08:59 01/17/18 10:21 Ferrous Sulfate (Feosol) 325 mg DAILY ORAL 01/17/18 09:00 02/16/18 08:59 01/17/18 10:21 Guaifenesin (Mucinex ER) 600 mg TWICE A DAY ORAL 01/17/18 13:30 02/16/18 13:29 01/17/18 13:54 Guaifenesin (Robitussin) 200 mg Q4H PRN ORAL For Cough 01/17/18 13:30 02/16/18 13:29 Heparin Sodium (Porcine) (Heparin 5000 units/ml) 5,000 units EVERY 12 HOURS SUBQ 01/17/18 09:00 02/16/18 08:59 01/17/18 10:22 Hydromorphone HCl (Dilaudid) 0.5 mg EVERY 4 HOURS PRN IVP SEVERE BREAKTHROUGH PAIN 01/17/18 12:45 01/24/18 04:14 Irbesartan (Avapro) 75 mg DAILY ORAL 01/18/18 09:00 02/17/18 08:59 Levofloxacin 150 ml @ 100 mls/hr Q24H IVPB 01/17/18 10:30 01/24/18 10:29 01/17/18 10:20 Memantine (Namenda) 10 mg Q12HR ORAL 01/17/18 10:00 02/16/18 09:59 01/17/18 10:22 Nystatin (Nystop Powder) 1 applic THREE TIMES A DAY TOPIC 01/17/18 16:00 02/16/18 15:59 Pantoprazole (Protonix) 40 mg EVERY 12 HOURS IVP 01/17/18 13:30 02/16/18 13:29 01/17/18 13:53 Ramelteon (Rozerem) 8 mg QHS ORAL 01/17/18 21:00 02/16/18 20:59 Triamcinolone Acetonide (Kenalog 0.025% Oint) 1 applic THREE TIMES A DAY TOPIC 01/17/18 13:00 02/16/18 12:59 JAX BRANCH 16, 2018 16:05
[2018-01-17] MEDS: Nystatin Powder 100,000 units/gm 15gm TOPIC SCH (16:20)
[2018-01-17] MEDS ORDERED: Vancomycin 1.5 GM/D5W 250ML IVPB ONE (17:00)
[2018-01-17] MEDS: TOBRAMYCIN IV SCH (17:45)
[2018-01-17] MEDS: NS IV SCH (17:45)
[2018-01-17] MEDS: Benzonatate 100mg Perles ORAL SCH (17:45)
[2018-01-17] MEDS ORDERED: Nystatin Powder 100,000 units/gm 15gm TOPIC SCH (18:00)
--- NOTE | 2018-01-17 18:13 | Cardiology Report ---
APPROVED REPORT EXAM: Two-dimensional and M-mode echocardiogram with Doppler and color Doppler. INDICATION SOB M-Mode DIMENSIONS IVSd1.2 (0.7-1.1cm)Left Atrium (MM)4.3 (1.6-4.0cm) LVDd5.6 (3.5-5.6cm)Aortic Root3.5 (2.0-3.7cm) PWd1.3 (0.7-1.1cm)Aortic Cusp Exc.1.6 (1.5-2.0cm) IVSs2.0 cm LVDs3.4 (2.5-4.0cm) PWs1.9 cm Technically difficult study due to poor acoustical windows. Mild left ventricular enlargements . Akinetic proximal to mid psoterio adn inferior wall amd mid lateral wall Left ventricular ejection fraction estimated to be 45- 50 %. Mild left ventricular hypertrophy by 2-D. No evidence of pericardial effusion. Mild Left atrial enlargement. Right cardiac chamber sizes are within normal limits. Focal aortic valve sclerosis with adequate cusp excursion. Thickened mitral valve leaflets with normal excursion. Mitral annulus and aortic root calcification. Pulmonic valve not well visualized. Normal tricuspid valve structure. A color flow and spectral Doppler study was performed and revealed: Trace aortic regurgitation. Moderate mitral regurgitation. Mitral diastolic velocities suggest reduced left ventricular relaxation c/w mild LV diastolic dysfunction (Grade I ). Mild tricuspid regurgitation. Tricuspid systolic velocities suggests peak right ventricular systolic pressure of 41 mmHg,consistent with mild pulmonary hypertension. No Pulmonic regurgitation present.
[2018-01-17] MEDS: Albuterol/Ipratropium 3ml neb HHN SCH (19:37)
[2018-01-17 20:00] VITALS: BP 98/56
--- NOTE | 2018-01-17 23:22 | Consultation ---
Consult Note Assessment/Plan DICT # [id number] LORENA HUBBARD M.D. Jan 17, 2018 23:22
--- NOTE | 2018-01-17 23:30 | Consultation ---
DATE OF CONSULTATION: 01/17/2018 INFECTIOUS DISEASES CONSULTATION CONSULTING PHYSICIAN: Heladio Brunson M.D. ATTENDING PHYSICIAN: Murali Duffy M.D. REFERRING PHYSICIAN: Yolanda Saez M.D. REASON FOR CONSULTATION: Urinary tract infection, possible pneumonia, abdominal wall cellulitis/panniculitis. CHIEF COMPLAINT: The patient's chief complaint coming into the hospital is pneumonia and distended abdomen. HISTORY OF PRESENT ILLNESS: This is a very pleasant 77-year-old female, who comes into [facility] with congestion and shortness of breath. The patient was diagnosed with possible community-acquired pneumonia. The patient also had significant urinary tract infection. The patient also has what looks like a distended abdomen however it is a benign abdomen. The patient has panniculitis/abdominal wall cellulitis. Infectious Diseases consultation requested for antibiotic management. The patient was placed on vancomycin, Levaquin, and tobramycin. Urine culture is pending. Get followup chest x-ray. MAR was noted. Orders were noted. Notes were reviewed. PAST MEDICAL HISTORY: The patient's past medical history includes history of the following. The patient has a past medical history of obesity, history of hernia surgeries, and history of depression. She is anemic also. No history of diabetes or hypertension. MEDICATIONS: Upon reviewing the MAR, she is on the following medications. She is on Avapro, Lipitor, Klonopin, albuterol, , Tessalon Perles, nystatin, Mucinex, Robitussin, Protonix, triamcinolone, and hydrocodone. Antibiotics, Levaquin, tobramycin, vancomycin, , heparin, Plavix, and Cymbalta. Outside medications were noted and reconciliated. ALLERGIES: Include clindamycin, penicillin, and phenytoin. FAMILY HISTORY: Noncontributory. No mention of exposure to tuberculosis or cancer. SOCIAL HISTORY: Negative for smoking, alcohol, or drug abuse. REVIEW OF SYSTEMS: CONSTITUTIONAL: The patient has generalized weakness and fatigue, but no fever, chills, night sweats, or weight loss. HEAD AND NECK: No head or neck pain. No thrush. No dysphagia. No sinus tenderness. No neck stiffness. CARDIAC: No chest pain. No palpitations. GASTROINTESTINAL: No nausea, vomiting, or diarrhea. No significant abdominal pain, just some mild distention. PULMONARY: May be a mild cough and congestion, but nothing significant. No hemoptysis or secretions. SKIN: No rash or itching. EXTREMITIES: No extremity pain. NEUROLOGIC: No seizures. She has generalized weakness and fatigue. GENITOURINARY: She might have some dysuria and frequency. No CVA tenderness. No Reyes. PHYSICAL EXAMINATION: VITAL SIGNS: Temperature 97.2, pulse rate 66, respiratory rate 19, blood pressure 129/52, and saturation 98%. GENERAL: Alert and responsive, no acute distress. HEAD AND NECK: Oral exam, no thrush. Eye exam, no icterus. Normocephalic. No facial droop. No neck stiffness. Neck is supple. LUNGS: Few bilateral rhonchi and crackles, questionable rales. HEART: Regular. No gallop or murmur. No friction rub. ABDOMEN: Soft. Positive bowel sounds. Nontender. The patient has panniculitis/ abdominal wall cellulitis with mild redness and warmth. SKIN: No other rash. MUSCULOSKELETAL: No effusion. No evidence of septic arthritis. EXTREMITIES: Lower extremities are without cellulitis. PERIPHERAL VASCULAR: No cyanosis. She has fungal rash noted. GENITOURINARY: No Reyes. No CVA tenderness. LINES: Line sites without phlebitis. NEUROLOGIC: Nonfocal. Generalized weakness. LABORATORY AND DIAGNOSTIC DATA: Influenza screen is negative. Creatinine is 0.7. UA had 3+ leukocyte esterase, too many to count white blood cells, and many bacteria. Urine culture is pending. White count 8.5, hemoglobin 11.3. Chest x-ray was noted showed suspected interstitial congestion, report was noted and reviewed. ASSESSMENT AND PLAN: 1. The patient has likely urinary tract infection, complicated urinary tract infection with generalized weakness, also possible community-acquired pneumonia. The patient also has panniculitis /abdominal wall cellulitis. Continue vancomycin, tobramycin, and Levaquin. Check followup chest x-ray. Check sputum culture and laboratories. Check urine culture. Continue treatment with tobramycin, Levaquin, and vancomycin pending workup. 2. Fungal rash. The patient on nystatin. 3. Anemia. 4. Obesity. 5. History of hernia surgery. 6. Depression. 7. No history of diabetes or hypertension. 8. Allergies to clindamycin, penicillin, and phenytoin. 9. Social history is negative. 10. Family history is noncontributory. 11. MAR was noted. 12. Case was discussed with RN. 13. Case was discussed with Dr. Guerrero and Surgery. 14. Notes and records were noted. 15. Orders were entered. Heladio Brunson M.D. DR: Caleb JOB#: [id number] CC:
[2018-01-18] VITALS: BP 101/56
[2018-01-18] MEDS: Pantoprazole Inj IVP SCH ×3 (00:01→21:57)
[2018-01-18] MEDS: Atorvastatin 20mg tab ORAL SCH ×2 (00:02→21:57)
[2018-01-18] MEDS: Memantine 10mg tab ORAL SCH ×3 (00:02→22:01)
[2018-01-18] MEDS: Ramelteon 8mg tab (Approved for Delirium use only) ORAL SCH ×2 (00:02→22:01)
[2018-01-18] MEDS: Nystatin Powder 100,000 units/gm 15gm TOPIC SCH ×4 (00:04→17:08)
--- NOTE | 2018-01-18 01:00 | Consultation ---
DATE OF CONSULTATION: 01/18/2018 PULMONARY CONSULTATION REFERRING PHYSICIAN: Yolanda Saez M.D. REASON FOR CONSULTATION: Respiratory distress. HISTORY OF PRESENT ILLNESS: The patient is a morbidly obese, 77-year-old female with history of likely underlying MISSY, not on CPAP therapy, known pulmonary nodules, breast cancer status post lumpectomy and mastectomy, CHF, chronic abdominal panniculitis, multiple abdominal wall surgeries, systemic hypertension, respiratory insufficiency in the past due to complications of abdominal surgeries, who presented with vague respiratory complaints and abdominal pain. The patient was started empirically on antimicrobial coverage for possible pneumonia. Her chest x-ray showed some mild interstitial congestion, but no consolidation per se. She also has heart failure. There was no leukocytosis. The patient has been seen by Surgery team as well as Infectious Disease. She is being treated for UTI, abdominal wall wound infection, and possible pneumonia. She actually denies respiratory complaints at this time. She does state that she is short of breath, but denies cough, wheezing, hemoptysis, fevers, chills, headaches, or dizziness. She has chronic abdominal pain, swelling, and edema of her lower extremities. She is very tangential in history. PAST MEDICAL HISTORY: 1. Morbid obesity. 2. Hypertension. 3. GERD. 4. Reactive airway disease. 5. Known pulmonary nodule in the past. 6. Breast cancer status post lumpectomy and mastectomy. 7. CHF. 8. Hernia with complications associated with hernia repair including incarceration and multiple abdominal surgeries. 9. History of respiratory insufficiency due to complications of abdominal surgeries. 10. Morbid obesity. MEDICATIONS: Prior to admission medications, Dymista nasal spray, Plavix, Cymbalta, ferrous sulfate, lidocaine, meclizine, Namenda, Benicar, and potassium. Current medications reviewed. ALLERGIES: Very extensive actually. Heparin analogues, penicillin, sulfa, Cipro, clindamycin, codeine, cephalosporin, multivitamins, nifedipine, hydrocodone, and Dilantin. 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 She is originally from the [facility], has only one grown child. 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 FAMILY HISTORY: Noncontributory. REVIEW OF SYSTEMS: Negative other than history of present illness. PHYSICAL EXAMINATION: VITAL SIGNS: Temperature 97.2 degrees, pulse 60, blood pressure 129/50, respiratory 19, and saturating 90% on two liters. GENERAL: She is a morbidly obese female, in no acute distress. Awake, alert, and oriented x3. HEENT: Normocephalic and atraumatic. Oropharynx is clear with moist mucous membranes. NECK: Supple without lymphadenopathy or JVD. CHEST: Clear with bibasilar rales. HEART: Regular rate and rhythm. ABDOMEN: Distended with diffuse panniculitis, erythema, and warmth. No fluctuance. Normoactive bowel sounds are heard. EXTREMITIES: No cyanosis or clubbing. There is 1+ lower extremity edema. ANCILLARY DATA: White count 8.5, hemoglobin 11.3, and platelet count 249,000. D-dimer is 0.66. Sodium 144, potassium 3.1, chloride 106, bicarbonate 28, BUN 11, and creatinine 0.7. Lactic acid is 0.6. Calcium is 9.2, magnesium 1.4, and phosphorus 3. Total bilirubin 3.3. AST 23, ALT 28, and alkaline phosphatase 145. CK 140 and CK-MB 2.2. Troponin 0.068 and then 0.052. ProBNP 2057. Total protein 5.7. Albumin 3.5. Rapid influenza A and B was negative. Imaging, chest x-ray from the ER showed some interstitial edema. Duplex and CT chest, abdomen, and pelvis are pending. Echocardiogram reviewed by myself was a technically difficult study with EF of 40% to 45%, LVH. No pericardial effusion. Mild left atrial enlargement. Right cardiac chamber sizes within normal limits. Focal aortic valve sclerosis. Thickened mitral valve leaflets. Mitral anulus. Pulmonic valve not visualized. Normal tricuspid valve structure. Moderate mitral regurgitation. Mitral diastolic velocities suggestive of grade 1 diastolic dysfunction. Mild TR. RV systolic pressure of 41. ASSESSMENT: The patient is a morbidly obese 77-year-old female with history of congestive heart failure with diastolic dysfunction, reactive airway disease, multiple abdominal surgeries, panniculitis, respiratory insufficiency secondary to the breast cancer status post lumpectomy and mastectomy in the past, and obstructive sleep apnea noncompliant with therapy, presenting with dyspnea in the setting of abdominal discomfort and urinary tract infection. There is no evidence of pneumonia on her plain film, but she is being broadly covered for her abdominal wound and urinary tract infection as well as common respiratory pathogens. I suspect she has a component of decompensated heart failure as well. The patient has a CT abdomen and pelvis ordered. I have to further evaluate the parenchymal changes. PROBLEM LIST: 1. Dyspnea and hypoxemia likely secondary to intraabdominal process and a component of pulmonary edema. 2. Reactive airway disease without evidence of exacerbation. 3. Congestive heart failure with diastolic dysfunction and acute decompensated heart failure. 4. History of abdominal wall cellulitis, panniculitis, and multiple abdominal surgeries. 5. Urinary tract infection. 6. Morbid obesity. 7. Obstructive sleep apnea and likely obesity hypoventilation, not currently on CPAP therapy. 8. Protein-calorie malnutrition. 9. Urinary tract infection. 10. Hypertension. 11. Gastroesophageal reflux disease. 12. History of incarcerated hernia repair in the past. TREATMENT PLAN: 1. Optimize pulmonary hygiene/mobilize as tolerated. 2. Titrate down FiO2 to keep saturations greater than 90%. 3. Continue broad-spectrum antimicrobial therapy per Infectious Disease (Levaquin, vancomycin, and tobramycin). 4. Continue round the clock and p.r.n. bronchodilators. 5. Mucinex and p.r.n. Robitussin. 6. Monitor volumes, we will give one dose of Lasix now. 7. We will add a CT chest to the CT abdomen and pelvis already ordered. 8. D-dimer and duplex. 9. ABG. 10. DVT prophylaxis, heparin subcutaneous. 11. Aspiration precautions. 12. Swallow evaluation. 13. The patient is a Full Code. Dr. Saez, thank you for allowing me to assist in the care of your patient. If I may be of any assistance in the future, please do not hesitate to ask. Wai Mcgarry M.D. DR: Meredith JOB#: [id number] CC:
[2018-01-18] MEDS: Albuterol/Ipratropium 3ml neb HHN SCH ×4 (01:10→19:55)
[2018-01-18 05:28] LABS: EOSINOPHILS % (AUTO) 2.7 % (0.0-3.0); HEMATOCRIT 33.5 % (37.0-47.0); HEMOGLOBIN 10.6 G/DL (12.0-16.0); LYMPHOCYTES % (AUTO) 18.8 % (20.0-45.0); MEAN CORPUSCULAR VOLUME 83 FL (80-99); MONOCYTES % (AUTO) 11.2 % (1.0-10.0); NEUTROPHILS % (AUTO) 66.3 % (45.0-75.0); PLATELET COUNT 221 K/UL (150-450); RED BLOOD COUNT 4.04 M/UL (4.20-5.40); RED CELL DISTRIBUTION WIDTH 16.6 % (11.6-14.8); WHITE BLOOD COUNT 6.6 K/UL (4.8-10.8)
[2018-01-18 05:50] LABS: ANION GAP 4 mmol/L (5-15); BLOOD UREA NITROGEN 9 mg/dL (7-18); CALCIUM 8.8 MG/DL (8.5-10.1); CARBON DIOXIDE 31 MMOL/L (21-32); CHLORIDE 105 MMOL/L (98-107); CREATININE 0.8 MG/DL (0.55-1.30); POTASSIUM 3.4 MMOL/L (3.5-5.1); SODIUM 140 MMOL/L (136-145)
[2018-01-18 08:00] VITALS: BP 118/62
[2018-01-18] MEDS: DULoxetine 30mg cap ORAL SCH (09:25)
[2018-01-18] MEDS: guaiFENesin ER 600mg tab ORAL SCH ×2 (09:25→17:07)
[2018-01-18] MEDS: Benzonatate 100mg Perles ORAL SCH ×3 (09:27→17:08)
[2018-01-18] MEDS: Heparin 5000 units/ml inj SUBQ SCH ×2 (09:28→22:18)
--- NOTE | 2018-01-18 10:16 | Wound Care Consultation ---
Wound Assessment Wound Assessment #1: Wound Number: 1 Wound Present on Admission: Yes New Wound: No Status Change of Wound: No Wound Location Body Site Modif: left, right Wound Location Body Site: breast fold Wound Type: rash Yudith Test: Does not Yudith Percent of Wound [place]/Red: 100 Wound Drainage Amount: None Wound Drainage Odor: None/Absent Tissue Surrounding Wound: Macerated Wound General Appearance: Reddened, Open to air Wound Assessment #2: Wound Number: 2 Wound Present on Admission: Yes New Wound: No Status Change of Wound: No Wound Location Body Site: abdominal fold Wound Type: rash - with erosion Yudith Test: Does not Yudith Percent of Wound [place]/Red: 100 Wound Drainage Description: Serosanguineous Wound Drainage Amount: Scant Wound Drainage Odor: None/Absent Tissue Surrounding Wound: Macerated Wound General Appearance: Reddened, Draining, Open to air Wound Assessment #3: Wound Number: 3 Wound Present on Admission: Yes New Wound: No Status Change of Wound: No Wound Location Body Site Modif: left Wound Location Body Site: thigh Wound Type: other - abrasions Yudith Test: Does not Yudith Wound Thickness: Partial Thickness Percent of Wound [place]/Red: 100 Wound Drainage Amount: None Wound Drainage Odor: None/Absent Wound General Appearance: Reddened Wound Comment #1 left and right breast fold rash/erosion. #2 abdominal fold rash/erosion #3 left thigh abrasions assessed sacral area, no evidence of pressure ulcer present skin is intact. RECOMMENDATION -Follow local wound care as per MD ordered. -Keep area clean and dry. -Turn and reposition. -Spr mattress for skin management and prevention -optimize nutrition -Offload heels/heel protectors. -Assess and notify MD for any change of condition to skin noted. NICCI CAIN Jan 18, 2018 10:15
[2018-01-18] MEDS ORDERED: Magnesium Oxide 400mg tab ORAL ONE (11:45)
[2018-01-18 12:00] VITALS: BP 117/69
--- NOTE | 2018-01-18 12:01 | Pulmonology Progress Note ---
Assessment/Plan Assessment/Plan ASSESSMENT: The patient is a morbidly obese 77-year-old female with history of congestive heart failure with diastolic dysfunction, reactive airway disease, multiple abdominal surgeries, panniculitis, respiratory insufficiency secondary to the breast cancer status post lumpectomy and mastectomy in the past, and obstructive sleep apnea noncompliant with therapy, presenting with dyspnea in the setting of abdominal discomfort and urinary tract infection. There is no evidence of pneumonia on her plain film, but she is being broadly covered for her abdominal wound and urinary tract infection as well as common respiratory pathogens. I suspect she has a component of decompensated heart failure as well. The patient has a CT abdomen and pelvis ordered. I have expanded it to include the chest to further evaluate the parenchymal changes. PROBLEM LIST: 1. Dyspnea and hypoxemia likely secondary to intraabdominal process and a component of pulmonary edema. 2. Reactive airway disease without evidence of exacerbation. 3. Congestive heart failure with diastolic dysfunction and acute decompensated heart failure. 4. History of abdominal wall cellulitis, panniculitis, and multiple abdominal surgeries. 5. GNR Urinary tract infection. 6. Morbid obesity. 7. Obstructive sleep apnea and likely obesity hypoventilation, not currently on CPAP therapy. 8. Protein-calorie malnutrition. 9. Urinary tract infection. 10. Hypertension. 11. Gastroesophageal reflux disease. 12. History of incarcerated hernia repair in the past. TREATMENT PLAN: 1. Optimize pulmonary hygiene/mobilize as tolerated. 2. Titrate down FiO2 to keep saturations greater than 90%. 3. Continue broad-spectrum antimicrobial therapy per Infectious Disease (Levaquin, vancomycin, and tobramycin). 4. Continue round the clock and p.r.n. bronchodilators. 5. Mucinex and p.r.n. Robitussin. 6. Monitor volumes, continue IV lasix as able. 7. Change CT CAP to non-contrast 8. F/U Duplex bLE 9. DVT prophylaxis, heparin subcutaneous. 10. Aspiration precautions. 11. Swallow evaluation. 12. The patient is a Full Code. Subjective Allergies: Coded Allergies: CLINDAMYCIN (Verified Allergy, Unknown, 01/16/18) PENICILLINS (Verified Allergy, Unknown, 01/16/18) PHENYTOIN (Verified Allergy, Unknown, 01/16/18) Subjective GNR in urine, AFVSS, stable O2 needs No change in dyspnea, no cough, no wheezing, no F/C, abd complaints unchanged Has a 24 G IV, unable to place a 20, CT not done Objective Last 24 Hour Vital Signs Date Time Temp Pulse Resp B/P (MAP) Pulse Ox O2 Delivery O2 Flow Rate FiO2 01/18/18 09:26 118/62 01/18/18 08:00 67 01/18/18 08:00 97.8 73 20 118/62 96 Nasal Cannula 2.0 97.8 01/18/18 07:15 69 18 99 Nasal Cannula 2.0 28 01/18/18 07:08 28 01/18/18 07:08 66 18 96 Nasal Cannula 2.0 28 01/18/18 04:00 71 01/18/18 01:22 62 19 98 Nasal Cannula 2.0 28 01/18/18 01:09 28 01/18/18 01:08 58 19 98 Nasal Cannula 2.0 28 01/18/18 00:00 69 01/18/18 00:00 97.9 72 18 101/56 98 Nasal Cannula 2.0 97.9 01/17/18 20:00 74 01/17/18 20:00 98.2 76 12 98/56 100 Nasal Cannula 2.0 98.2 01/17/18 19:48 74 19 98 Nasal Cannula 2.0 28 01/17/18 19:33 28 01/17/18 19:32 74 19 98 Nasal Cannula 2.0 28 01/17/18 16:00 74 01/17/18 12:00 80 Intake and Output 01/17/18 01/18/18 19:00 07:00 Intake Total 700 ml Balance 700 ml Intake Oral 700 ml # Voids 5 3 General Appearance: WD/WN, no acute distress, other - obese female HEENT: normocephalic, atraumatic, anicteric, mucous membranes moist Respiratory/Chest: chest wall non-tender, lungs clear, normal breath sounds, no respiratory distress Cardiovascular: normal peripheral pulses, normal rate, regular rhythm Abdomen: normal bowel sounds, soft, non tender, no organomegaly, distended, other - panniculitis Extremities: no cyanosis, no clubbing, other - 1+ PENNIE Microbiology Date/Time Source Procedure Growth Status 01/17/18 03:50 Nasal Nares Influenza Types A,B Antigen (CHEYENNE) - Final Complete 01/17/18 01:30 Urine,Clean Catch Urine Culture - Preliminary Gram Negative Kenny Mixed Gram Positive Organism Resulted Laboratory Tests 01/18/18 00:10: Arterial Blood pH 7.406, Arterial Blood Partial Pressure CO2 48.5H, Arterial Blood Partial Pressure O2 121.0H, Arterial Blood HCO3 29.8H, Arterial Blood Oxygen Saturation 98.0, Arterial Blood Base Excess 4.3, Jama Test Positive 01/18/18 05:00: White Blood Count 6.6, Red Blood Count 4.04L, Hemoglobin 10.6L, Hematocrit 33.5L , Mean Corpuscular Volume 83, Mean Corpuscular Hemoglobin 26.3L, Mean Corpuscular Hemoglobin Concent 31.7L, Red Cell Distribution Width 16.6H, Platelet Count 221, Mean Platelet Volume 7.8, Neutrophils (%) (Auto) 66.3, Lymphocytes (%) (Auto) 18.8L, Monocytes (%) (Auto) 11.2H, Eosinophils (%) (Auto ) 2.7, Basophils (%) (Auto) 1.0, Sodium Level 140, Potassium Level 3.4L, Chloride Level 105, Carbon Dioxide Level 31, Anion Gap 4L, Blood Urea Nitrogen 9 , Creatinine 0.8, Estimat Glomerular Filtration Rate , Glucose Level 94, Calcium Level 8.8, Magnesium Level 1.7L, Random Tobramycin Level 3.5 Current Medications Medications (Trade) Dose Ordered Sig/Wiliam Route PRN Reason Start Time Stop Time Status Last Admin Dose Admin Acetaminophen/ Hydrocodone Bitart (Bruce 5/325) 1 tab Q4H PRN ORAL Moderate Pain (Pain Scale 4-6) 01/17/18 12:15 01/24/18 12:14 01/17/18 15:38 Acetaminophen/ Hydrocodone Bitart (Bruce 7.5/325) 1 tab Q4H PRN ORAL Severe Pain (Pain Scale 7-10) 01/17/18 12:15 01/24/18 12:14 Albuterol/ Ipratropium (Albuterol/ Ipratropium) 3 ml Q4H PRN HHN Shortness of Breath 01/17/18 13:30 01/22/18 13:29 Albuterol/ Ipratropium (Albuterol/ Ipratropium) 3 ml Q6HRT HHN 01/17/18 19:00 01/22/18 18:59 01/18/18 07:08 Atorvastatin Calcium (Lipitor) 20 mg BEDTIME ORAL 01/17/18 21:00 02/16/18 20:59 01/18/18 00:02 Benzonatate (Tessalon Perles) 100 mg THREE TIMES A DAY ORAL 01/17/18 18:00 02/16/18 17:59 01/18/18 09:27 Clonazepam (KlonoPIN) 1 mg BEDTIME ORAL 01/17/18 21:00 01/24/18 20:59 01/18/18 00:02 Clopidogrel Bisulfate (Plavix) 75 mg DAILY ORAL 01/17/18 09:00 02/16/18 08:59 01/18/18 09:25 Dextrose (Dextrose 50%) STAT PRN IV Hypoglycemia 01/17/18 04:15 02/16/18 04:14 Duloxetine HCl (Cymbalta) 30 mg DAILY ORAL 01/17/18 09:00 02/16/18 08:59 01/18/18 09:25 Ferrous Sulfate (Feosol) 325 mg DAILY ORAL 01/17/18 09:00 02/16/18 08:59 01/18/18 09:25 Guaifenesin (Mucinex ER) 600 mg TWICE A DAY ORAL 01/17/18 13:30 02/16/18 13:29 01/18/18 09:25 Guaifenesin (Robitussin) 200 mg Q4H PRN ORAL For Cough 01/17/18 13:30 02/16/18 13:29 Heparin Sodium (Porcine) (Heparin 5000 units/ml) 5,000 units EVERY 12 HOURS SUBQ 01/17/18 09:00 02/16/18 08:59 01/18/18 09:28 Hydromorphone HCl (Dilaudid) 0.5 mg EVERY 4 HOURS PRN IVP SEVERE BREAKTHROUGH PAIN 01/17/18 12:45 01/24/18 04:14 Irbesartan (Avapro) 75 mg DAILY ORAL 01/18/18 09:00 02/17/18 08:59 01/18/18 09:26 Levofloxacin 150 ml @ 100 mls/hr Q24H IVPB 01/17/18 10:30 01/24/18 10:29 01/18/18 10:09 Memantine (Namenda) 10 mg Q12HR ORAL 01/17/18 10:00 02/16/18 09:59 01/18/18 09:25 Nystatin (Nystop Powder) 1 applic THREE TIMES A DAY TOPIC 01/17/18 16:00 02/16/18 15:59 01/18/18 09:27 Pantoprazole (Protonix) 40 mg EVERY 12 HOURS IVP 01/17/18 13:30 02/16/18 13:29 01/18/18 09:29 Ramelteon (Rozerem) 8 mg QHS ORAL 01/17/18 21:00 02/16/18 20:59 01/18/18 00:02 Tobramycin Protocol (Tobramycin pharmacy to dose) 1 ea DAILY PRN MISC Per rx protocol 01/17/18 15:45 02/16/18 15:44 Tobramycin Sulfate 350 mg/ Sodium Chloride 110 ml @ 110 mls/hr Q36H IV 01/17/18 17:00 01/24/18 16:59 01/17/18 17:45 Vancomycin HCl (Vanco rx to dose) 1 ea DAILY PRN MISC Per rx protocol 01/17/18 15:45 02/16/18 15:44 Vancomycin HCl 1 gm/Dextrose 275 ml @ 183.708 mls/hr Q24H IVPB 01/18/18 17:00 01/23/18 23:59 LORENA HUBBARD M.D. Jan 18, 2018 12:01
--- NOTE | 2018-01-18 12:26 | General Surgery Progress Note ---
General Surgery-Progress Note Subjective Symptoms: improved Additional Comments doing well. no acute events. Objective Last 24 Hour Vital Signs Date Time Temp Pulse Resp B/P (MAP) Pulse Ox O2 Delivery O2 Flow Rate FiO2 01/18/18 12:00 97.5 79 21 117/69 96 Nasal Cannula 2.0 97.5 01/18/18 09:26 118/62 01/18/18 08:00 67 01/18/18 08:00 97.8 73 20 118/62 96 Nasal Cannula 2.0 97.8 01/18/18 07:15 69 18 99 Nasal Cannula 2.0 28 01/18/18 07:08 28 01/18/18 07:08 66 18 96 Nasal Cannula 2.0 28 01/18/18 04:00 71 01/18/18 01:22 62 19 98 Nasal Cannula 2.0 28 01/18/18 01:09 28 01/18/18 01:08 58 19 98 Nasal Cannula 2.0 28 01/18/18 00:00 69 01/18/18 00:00 97.9 72 18 101/56 98 Nasal Cannula 2.0 97.9 01/17/18 20:00 74 01/17/18 20:00 98.2 76 12 98/56 100 Nasal Cannula 2.0 98.2 01/17/18 19:48 74 19 98 Nasal Cannula 2.0 28 01/17/18 19:33 28 01/17/18 19:32 74 19 98 Nasal Cannula 2.0 28 01/17/18 16:00 74 I&O Intake and Output 01/17/18 01/18/18 19:00 07:00 Intake Total 700 ml Balance 700 ml Intake Oral 700 ml # Voids 5 3 Wound: clean, intact Cardiovascular: RSR Respiratory: clear Abdomen: soft, other - large hernia stable. panniculitis. Extremities: edema Laboratory Tests Test 01/18/18 00:10 01/18/18 05:00 Arterial Blood pH 7.406 (7.350-7.450) Arterial Blood Partial Pressure CO2 48.5 mmHg (35.0-45.0) H Arterial Blood Partial Pressure O2 121.0 mmHg (75.0-100.0) H Arterial Blood HCO3 29.8 mmol/L (22.0-26.0) H Arterial Blood Oxygen Saturation 98.0 % (92.0-98.0) Arterial Blood Base Excess 4.3 Jama Test Positive White Blood Count 6.6 K/UL (4.8-10.8) Red Blood Count 4.04 M/UL (4.20-5.40) L Hemoglobin 10.6 G/DL (12.0-16.0) L Hematocrit 33.5 % (37.0-47.0) L Mean Corpuscular Volume 83 FL (80-99) Mean Corpuscular Hemoglobin 26.3 PG (27.0-31.0) L Mean Corpuscular Hemoglobin Concent 31.7 G/DL (32.0-36.0) L Red Cell Distribution Width 16.6 % (11.6-14.8) H Platelet Count 221 K/UL (150-450) Mean Platelet Volume 7.8 FL (6.5-10.1) Neutrophils (%) (Auto) 66.3 % (45.0-75.0) Lymphocytes (%) (Auto) 18.8 % (20.0-45.0) L Monocytes (%) (Auto) 11.2 % (1.0-10.0) H Eosinophils (%) (Auto) 2.7 % (0.0-3.0) Basophils (%) (Auto) 1.0 % (0.0-2.0) Sodium Level 140 MMOL/L (136-145) Potassium Level 3.4 MMOL/L (3.5-5.1) L Chloride Level 105 MMOL/L (98-107) Carbon Dioxide Level 31 MMOL/L (21-32) Anion Gap 4 mmol/L (5-15) L Blood Urea Nitrogen 9 mg/dL (7-18) Creatinine 0.8 MG/DL (0.55-1.30) Estimat Glomerular Filtration Rate mL/min (>60) Glucose Level 94 MG/DL (74-106) Calcium Level 8.8 MG/DL (8.5-10.1) Magnesium Level 1.7 MG/DL (1.8-2.4) L Random Tobramycin Level 3.5 ug/mL Plan Problems: (1) Panniculitis Assessment & Plan: 77F with multiple prior abdominal surgeries for hernia with prior complications and recurrence. Has large pannus with mild superficial panniculitis. currently admitted for respiratory problems. abdominal discomfort minimal. no signs or symptoms of obstruction. hernia large and abdomen benign except for chronic issues such as pannus. -no surgical intervention necessary. -will obtain CT to evaluate for possible underlying abscess but very unlikely. on exam chronic skin changes from pannus and mild superficial abrasions from pannus on thigh with moist skin. -okay for diet -would NOT recommend hernia surgery unless emergency (not reducible or strangulated) thank you for this consult. will follow with Adriano Jo Jan 18, 2018 12:26
--- NOTE | 2018-01-18 14:53 | General Progress Note ---
Assessment/Plan Status: stable Assessment/Plan Problem List: (1) Acute on chronic diastolic (congestive) heart failure ICD Codes: I50.33 - Acute on chronic diastolic (congestive) heart failure SNOMED: 71963366, 421499286 (2) UTI (urinary tract infection) ICD Codes: N39.0 - Urinary tract infection, site not specified SNOMED: 64237423 (3) Panniculitis ICD Codes: M79.3 - Panniculitis, unspecified SNOMED: 89493064 (4) Abdominal wall cellulitis ICD Codes: L03.311 - Cellulitis of abdominal wall SNOMED: 47434258 (5) Morbid obesity ICD Codes: E66.01 - Morbid (severe) obesity due to excess calories SNOMED: 583820577, 87946054021140 (6) Probable MISSY (7) HTN (hypertension) ICD Codes: I10 - Essential (primary) hypertension SNOMED: 83323568 (8) Hypokalemia ICD Codes: E87.6 - Hypokalemia SNOMED: 20340302 (9) Hypomagnesemia ICD Codes: E83.42 - Hypomagnesemia SNOMED: 052162769 Status: stable Assessment/Plan Pulm, ID, gen surgery consulted - appreciate recs PICC line placement CT abd/p to rule out underlying pocket of infection Not likely surgical & receiving plavix abx per ID F/u cultures F/u TTE Cont O2 and wean as tolerated Duonebs ATC and PRN Suction PRN Swallow eval Wound care Replete lytes Cont home meds Pain control, bowel regimen Supportive care PT/OT DVT Prophylaxis: SCD, HSQ Code Status: Full Hospital Classification Declaration: Based on this initial evaluation, and depending on the patient's clinical course, I anticipate that this patient will require hospitalization for 2-3 days for UTI, panniculitis/abd wall cellulitis, CHF and close respiratory/hemodynamic monitoring. Disposition: Once the patient is stable to leave the hospital, I anticipate the patient will likely be discharged to the following environment: home with HH vs SNF (pt declines SNF) I spent 40 minutes on this patient's case, and 23 min was dedicated to counseling and/or care coordination. Discussed with patient/family, nursing staff, SW/CM, pulm, ID, gen surg regarding clinical status, treatment course, and disposition planning. Time of note may not reflect time of encounter. Subjective Date patient seen: Jan 18, 2018 Allergies: Coded Allergies: CLINDAMYCIN (Verified Allergy, Unknown, 01/16/18) PENICILLINS (Verified Allergy, Unknown, 01/16/18) PHENYTOIN (Verified Allergy, Unknown, 01/16/18) Subjective no acute events afebrile and hds tolerating abx poor venous access ROS: Constitutional: Reports: malaise, weakness Eye: Reports: no symptoms ENT: Reports: no symptoms Respiratory: Reports: cough, shortness of breath, MANZANARES Cardiovascular: Reports: no symptoms Gastrointestinal: Reports: abdominal pain Genitourinary: Reports: no symptoms Musculoskeletal: Reports: no symptoms Skin: Reports: no symptoms Psychiatric: Reports: no symptoms Neurological: Reports: no symptoms Endocrine: Reports: no symptoms Hematologic/Lymphatic: Reports: no symptoms Objective Last 24 Hour Vital Signs Date Time Temp Pulse Resp B/P (MAP) Pulse Ox O2 Delivery O2 Flow Rate FiO2 01/18/18 12:43 73 18 100 Nasal Cannula 2.0 28 01/18/18 12:38 28 01/18/18 12:36 70 18 98 Nasal Cannula 2.0 28 01/18/18 12:00 97.5 79 21 117/69 96 Nasal Cannula 2.0 97.5 01/18/18 12:00 68 01/18/18 09:26 118/62 01/18/18 08:00 67 01/18/18 08:00 97.8 73 20 118/62 96 Nasal Cannula 2.0 97.8 01/18/18 07:15 69 18 99 Nasal Cannula 2.0 28 01/18/18 07:08 28 01/18/18 07:08 66 18 96 Nasal Cannula 2.0 28 01/18/18 04:00 71 01/18/18 01:22 62 19 98 Nasal Cannula 2.0 28 01/18/18 01:09 28 01/18/18 01:08 58 19 98 Nasal Cannula 2.0 28 01/18/18 00:00 69 01/18/18 00:00 97.9 72 18 101/56 98 Nasal Cannula 2.0 97.9 01/17/18 20:00 74 01/17/18 20:00 98.2 76 12 98/56 100 Nasal Cannula 2.0 98.2 01/17/18 19:48 74 19 98 Nasal Cannula 2.0 28 01/17/18 19:33 28 01/17/18 19:32 74 19 98 Nasal Cannula 2.0 28 01/17/18 16:00 74 Intake and Output 01/17/18 01/18/18 19:00 07:00 Intake Total 700 ml Balance 700 ml Intake Oral 700 ml # Voids 5 3 Laboratory Tests 01/18/18 00:10: Arterial Blood pH 7.406, Arterial Blood Partial Pressure CO2 48.5H, Arterial Blood Partial Pressure O2 121.0H, Arterial Blood HCO3 29.8H, Arterial Blood Oxygen Saturation 98.0, Arterial Blood Base Excess 4.3, Jama Test Positive 01/18/18 05:00: White Blood Count 6.6, Red Blood Count 4.04L, Hemoglobin 10.6L, Hematocrit 33.5L , Mean Corpuscular Volume 83, Mean Corpuscular Hemoglobin 26.3L, Mean Corpuscular Hemoglobin Concent 31.7L, Red Cell Distribution Width 16.6H, Platelet Count 221, Mean Platelet Volume 7.8, Neutrophils (%) (Auto) 66.3, Lymphocytes (%) (Auto) 18.8L, Monocytes (%) (Auto) 11.2H, Eosinophils (%) (Auto ) 2.7, Basophils (%) (Auto) 1.0, Sodium Level 140, Potassium Level 3.4L, Chloride Level 105, Carbon Dioxide Level 31, Anion Gap 4L, Blood Urea Nitrogen 9 , Creatinine 0.8, Estimat Glomerular Filtration Rate , Glucose Level 94, Calcium Level 8.8, Magnesium Level 1.7L, Random Tobramycin Level 3.5 Height (Feet): 5 Height (Inches): 0.00 Weight (Pounds): 234 Objective Physical Exam Narrative General: alert, cooperative, no distress, appears stated age Head: normocephalic, without obvious abnormality, atraumatic Eyes: conjunctivae/corneas clear. PERRL, EOM's intact Throat: lips, mucosa, and tongue normal. MMM Neck: supple, symmetrical, trachea midline, and no JVD Lungs: clear to auscultation bilaterally Heart: regular rate and rhythm, S1, S2 normal, no murmur, click, rub or gallop Abdomen: soft, obese abd, +large pannus, panniculitis around superficial lower left, prior surgical scars noted, serous drainage noted around pannus from superficial abrasions Extremities: extremities normal, atraumatic, no cyanosis or edema Pulses: 2+ and symmetric Skin: skin color, texture, turgor normal; no rashes or lesions Neurologic: grossly normal, no focal deficits Junior Flores MD Jan 18, 2018 14:53
[2018-01-18 16:00] VITALS: BP 121/69
[2018-01-18] MEDS: Vancomycin 1gm/D5W 275ml IVPB SCH ×2 (17:02)
--- NOTE | 2018-01-18 18:28 | Cardiac Electrophysiology PN ---
Subjective Subjective CHF [id number] Objective Last 24 Hour Vital Signs Date Time Temp Pulse Resp B/P (MAP) Pulse Ox O2 Delivery O2 Flow Rate FiO2 01/18/18 16:00 93 01/18/18 16:00 97.2 72 22 121/69 95 Nasal Cannula 2.0 97.2 01/18/18 12:43 73 18 100 Nasal Cannula 2.0 28 01/18/18 12:38 28 01/18/18 12:36 70 18 98 Nasal Cannula 2.0 28 01/18/18 12:00 97.5 79 21 117/69 96 Nasal Cannula 2.0 97.5 01/18/18 12:00 68 01/18/18 09:26 118/62 01/18/18 08:00 67 01/18/18 08:00 97.8 73 20 118/62 96 Nasal Cannula 2.0 97.8 01/18/18 07:15 69 18 99 Nasal Cannula 2.0 28 01/18/18 07:08 28 01/18/18 07:08 66 18 96 Nasal Cannula 2.0 28 01/18/18 04:00 71 01/18/18 01:22 62 19 98 Nasal Cannula 2.0 28 01/18/18 01:09 28 01/18/18 01:08 58 19 98 Nasal Cannula 2.0 28 01/18/18 00:00 69 01/18/18 00:00 97.9 72 18 101/56 98 Nasal Cannula 2.0 97.9 01/17/18 20:00 74 01/17/18 20:00 98.2 76 12 98/56 100 Nasal Cannula 2.0 98.2 01/17/18 19:48 74 19 98 Nasal Cannula 2.0 28 01/17/18 19:33 28 01/17/18 19:32 74 19 98 Nasal Cannula 2.0 28 Intake and Output 01/17/18 01/18/18 19:00 07:00 Intake Total 700 ml Balance 700 ml Intake Oral 700 ml # Voids 5 3 Laboratory Tests Test 01/18/18 00:10 01/18/18 05:00 Arterial Blood pH 7.406 (7.350-7.450) Arterial Blood Partial Pressure CO2 48.5 mmHg (35.0-45.0) H Arterial Blood Partial Pressure O2 121.0 mmHg (75.0-100.0) H Arterial Blood HCO3 29.8 mmol/L (22.0-26.0) H Arterial Blood Oxygen Saturation 98.0 % (92.0-98.0) Arterial Blood Base Excess 4.3 Jama Test Positive White Blood Count 6.6 K/UL (4.8-10.8) Red Blood Count 4.04 M/UL (4.20-5.40) L Hemoglobin 10.6 G/DL (12.0-16.0) L Hematocrit 33.5 % (37.0-47.0) L Mean Corpuscular Volume 83 FL (80-99) Mean Corpuscular Hemoglobin 26.3 PG (27.0-31.0) L Mean Corpuscular Hemoglobin Concent 31.7 G/DL (32.0-36.0) L Red Cell Distribution Width 16.6 % (11.6-14.8) H Platelet Count 221 K/UL (150-450) Mean Platelet Volume 7.8 FL (6.5-10.1) Neutrophils (%) (Auto) 66.3 % (45.0-75.0) Lymphocytes (%) (Auto) 18.8 % (20.0-45.0) L Monocytes (%) (Auto) 11.2 % (1.0-10.0) H Eosinophils (%) (Auto) 2.7 % (0.0-3.0) Basophils (%) (Auto) 1.0 % (0.0-2.0) Sodium Level 140 MMOL/L (136-145) Potassium Level 3.4 MMOL/L (3.5-5.1) L Chloride Level 105 MMOL/L (98-107) Carbon Dioxide Level 31 MMOL/L (21-32) Anion Gap 4 mmol/L (5-15) L Blood Urea Nitrogen 9 mg/dL (7-18) Creatinine 0.8 MG/DL (0.55-1.30) Estimat Glomerular Filtration Rate mL/min (>60) Glucose Level 94 MG/DL (74-106) Calcium Level 8.8 MG/DL (8.5-10.1) Magnesium Level 1.7 MG/DL (1.8-2.4) L Random Tobramycin Level 3.5 ug/mL Microbiology Date/Time Source Procedure Growth Status 01/17/18 01:20 Blood Blood Culture - Preliminary NO GROWTH AFTER 24 HOURS Resulted 01/17/18 01:05 Blood Blood Culture - Preliminary NO GROWTH AFTER 24 HOURS Resulted 01/17/18 03:50 Nasal Nares Influenza Types A,B Antigen (CHEYENNE) - Final Complete 01/17/18 01:30 Urine,Clean Catch Urine Culture - Preliminary Gram Negative Kenny Mixed Gram Positive Organism Resulted MIKE DIAL Jan 18, 2018 18:28
[2018-01-18 20:00] VITALS: BP 102/45
--- NOTE | 2018-01-18 22:34 | Diagnostic Imaging Report ---
APPROVED REPORT CPT Code: 74242 Present Symptoms Lower Extremity Pain: Bilateral Shortness of breath Comments: Technically difficult study. BILATERAL: Imaging reveals a patent deep venous system bilaterally. There is no evidence of thrombus within the femoral, popliteal or tibial segments. The greater saphenous veins are also within normal limits. Doppler indicates normal spontaneous flow within these segments. Incidental finding: Cystic, echogenic structure noted at the right popliteal vein level. Possible Bakers cyst, measuring (2.7 cm x 1.5 cm).
[2018-01-19] VITALS: BP 92/54
[2018-01-19] MEDS: Albuterol/Ipratropium 3ml neb HHN SCH ×5 (01:00→23:14)
[2018-01-19 04:00] VITALS: BP 109/57
--- NOTE | 2018-01-19 04:30 | Consultation ---
DATE OF CONSULTATION: 01/18/2018 CARDIOLOGY CONSULTATION CONSULTING PHYSICIAN: Abdirashid Mcclain M.D. REFERRING PHYSICIAN: Yolanda Saez M.D. REASON FOR CONSULTATION: Shortness of breath and congestive heart failure. HISTORY OF PRESENT ILLNESS: The patient is a 77-year-old female, who is morbidly obese obstructive sleep apnea, currently not on CPAP, and history of breast cancer, status post lumpectomy and mastectomy as well as congestive heart failure and multiple abdominal surgeries, who presented to the emergency room for increasing shortness of breath and abdominal pain. The patient was started on empiric antibiotic therapy for possible pneumonia. Chest x-ray was suggestive of interstitial congestion, but without any consolation. She underwent an echocardiogram, which showed ejection fraction of 45% to 50%. Cardiology consultation was obtained for further evaluation and management. PAST MEDICAL HISTORY: 1. Hypertension. 2. Congestive heart failure. 3. Morbid obesity. 4. Gastroesophageal reflux disease. 5. Pulmonary nodule. 6. Breast cancer, status post lumpectomy and mastectomy. 7. Hernia surgery complication including incarceration and multiple abdominal surgeries. 8. History of respiratory failure. MEDICATIONS: Per reconciliation. ALLERGIES: The patient is allergic to heparin, penicillin, sulfa, Cipro, clindamycin, codeine, cephalosporin, multivitamin, nifedipine, hydrocodone, and Dilantin. 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 She is originally from [facility]. FAMILY HISTORY: Noncontributory. REVIEW OF SYSTEMS: Review of systems was performed and was negative other than what was mentioned in the history of present illness. PHYSICAL EXAMINATION: VITAL SIGNS: Blood pressure is 121/69, pulse 72, respirations 18, and temperature 97.2 degrees. HEAD AND NECK: Showed no JVD. LUNGS: Coarse rhonchi. CARDIOVASCULAR: Shows regular S1 and S2 with no gallop. ABDOMEN: Soft and morbidly obese. EXTREMITIES: No pitting edema. LABORATORY DATA: Her labs show a white count of 6.6, hemoglobin of 10.6, hematocrit 33.5, and platelet count of 221,000. Sodium is 140, potassium 3.4, BUN of 9, and creatinine of 0.8. Her troponin is 0.53 and initial troponin was 0.068. ASSESSMENT AND PLAN: 1. Troponin leak. The patient's creatinine is within normal range. The second troponin was negative. We will completely rule out myocardial infarction protocol and repeat the EKG. Her echocardiogram showed ejection fraction of 45% to 50% and her initial EKG was essentially normal. 2. Congestive heart failure. BNP of more than 2000 and ejection fraction of 45% to 50%. Continue Lasix 40 mg IV b.i.d. 3. Hypertension, on Avapro 75 mg daily. 4. Hyperlipidemia, on Lipitor. 5. Pneumonia, on IV antibiotic and nebulizer. Thank you very much, Dr. Duffy, for allowing me to participate in the care of this patient. Please do not hesitate to contact me if you have any questions regarding my evaluation. Abdirashid Mcclain M.D. DR: Kevin JOB#: [id number] CC:
[2018-01-19] MEDS: TOBRAMYCIN IV SCH (05:03)
[2018-01-19] MEDS: NS IV SCH (05:03)
[2018-01-19 08:00] VITALS: BP 108/69
[2018-01-19] MEDS: Nystatin Powder 100,000 units/gm 15gm TOPIC SCH ×3 (08:38→17:03)
[2018-01-19] MEDS: DULoxetine 30mg cap ORAL SCH (08:38)
[2018-01-19] MEDS: Benzonatate 100mg Perles ORAL SCH ×3 (08:39→17:03)
[2018-01-19] MEDS: Pantoprazole Inj IVP SCH ×2 (08:39→20:13)
[2018-01-19] MEDS: guaiFENesin ER 600mg tab ORAL SCH ×2 (08:40→17:03)
[2018-01-19] MEDS: Memantine 10mg tab ORAL SCH ×2 (08:41→20:16)
[2018-01-19] MEDS: Heparin 5000 units/ml inj SUBQ SCH ×2 (08:50→20:18)
[2018-01-19 09:45] LABS: BASOPHILS % (AUTO) 1.2 % (0.0-2.0); EOSINOPHILS % (AUTO) 3.4 % (0.0-3.0); HEMATOCRIT 35.5 % (37.0-47.0); HEMOGLOBIN 11.4 G/DL (12.0-16.0); LYMPHOCYTES % (AUTO) 22.5 % (20.0-45.0); MEAN CORPUSCULAR VOLUME 83 FL (80-99); MONOCYTES % (AUTO) 10.8 % (1.0-10.0); NEUTROPHILS % (AUTO) 62.1 % (45.0-75.0); PLATELET COUNT 233 K/UL (150-450); RED BLOOD COUNT 4.27 M/UL (4.20-5.40); RED CELL DISTRIBUTION WIDTH 16.8 % (11.6-14.8); WHITE BLOOD COUNT 7.2 K/UL (4.8-10.8)
[2018-01-19 09:58] LABS: ALANINE AMINOTRANSFERASE 25 U/L (12-78); ALBUMIN 2.3 G/DL (3.4-5.0); ALBUMIN/GLOBULIN RATIO 0.7 (1.0-2.7); ALKALINE PHOSPHATASE 124 U/L (46-116); ANION GAP 3 mmol/L (5-15); ASPARTATE AMINO TRANSFERASE 24 U/L (15-37); BILIRUBIN,TOTAL 0.3 MG/DL (0.2-1.0); BLOOD UREA NITROGEN 9 mg/dL (7-18); CALCIUM 8.8 MG/DL (8.5-10.1); CARBON DIOXIDE 34 MMOL/L (21-32); CHLORIDE 103 MMOL/L (98-107); CREATININE 0.8 MG/DL (0.55-1.30); POTASSIUM 3.8 MMOL/L (3.5-5.1); SODIUM 140 MMOL/L (136-145)
--- NOTE | 2018-01-19 11:24 | Pulmonology Progress Note ---
Assessment/Plan Assessment/Plan ASSESSMENT: The patient is a morbidly obese 77-year-old female with history of congestive heart failure with diastolic dysfunction, reactive airway disease, multiple abdominal surgeries, panniculitis, respiratory insufficiency secondary to the breast cancer status post lumpectomy and mastectomy in the past, and obstructive sleep apnea noncompliant with therapy, presenting with dyspnea in the setting of abdominal discomfort and urinary tract infection. There is no evidence of pneumonia on her plain film, but she is being broadly covered for her abdominal wound and urinary tract infection as well as common respiratory pathogens. I suspect she has a component of decompensated heart failure as well. The patient has a CT abdomen and pelvis ordered. I have expanded it to include the chest to further evaluate the parenchymal changes. PROBLEM LIST: 1. Dyspnea and hypoxemia likely secondary to intraabdominal process and a component of pulmonary edema. 2. Reactive airway disease without evidence of exacerbation. 3. Congestive heart failure with diastolic dysfunction and acute decompensated heart failure. 4. History of abdominal wall cellulitis, panniculitis, and multiple abdominal surgeries. 5. GNR Urinary tract infection. 6. Morbid obesity. 7. Obstructive sleep apnea and likely obesity hypoventilation, not currently on CPAP therapy. 8. Protein-calorie malnutrition. 9. Urinary tract infection. 10. Hypertension. 11. Gastroesophageal reflux disease. 12. History of incarcerated hernia repair in the past. TREATMENT PLAN: 1. Optimize pulmonary hygiene/mobilize as tolerated. 2. Titrate down FiO2 to keep saturations greater than 90%. 3. Continue broad-spectrum antimicrobial therapy per Infectious Disease (Levaquin, vancomycin, and tobramycin). 4. Continue round the clock and p.r.n. bronchodilators. 5. Mucinex and p.r.n. Robitussin. 6. Monitor volumes, continue IV lasix as able. 7. F/U CT CAP results 8. DVT prophylaxis, heparin subcutaneous. 9. Diet per SKI TECHNICIAN with STRICT aspiration precautions. 10. The patient is a Full Code. 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 AF[employer], on RA to 2L No change in dyspnea, no cough, no wheezing, no F/C, abd complaints unchanged CT done but not loaded Objective Last 24 Hour Vital Signs Date Time Temp Pulse Resp B/P (MAP) Pulse Ox O2 Delivery O2 Flow Rate FiO2 01/19/18 08:39 108/69 01/19/18 08:00 97.9 72 22 108/69 98 Nasal Cannula 2.0 97.9 01/19/18 08:00 71 01/19/18 07:06 Nasal Cannula 2.0 28 01/19/18 07:06 98 Nasal Cannula 2.0 28 01/19/18 06:58 69 18 100 Nasal Cannula 2.0 28 01/19/18 06:48 28 01/19/18 06:47 68 18 99 Nasal Cannula 2.0 28 01/19/18 04:00 98.6 76 19 109/57 94 Nasal Cannula 2.0 98.6 01/19/18 04:00 74 01/19/18 03:31 Nasal Cannula 01/19/18 03:30 75 18 100 Nasal Cannula 2.0 28 01/19/18 00:00 98.5 67 19 92/54 95 Nasal Cannula 2.0 98.5 01/19/18 00:00 72 01/18/18 20:00 71 01/18/18 20:00 98.6 71 20 102/45 97 Nasal Cannula 2.0 98.6 01/18/18 19:56 28 01/18/18 19:56 97 Nasal Cannula 2.0 01/18/18 19:56 64 18 100 Nasal Cannula 2.0 28 01/18/18 19:56 Nasal Cannula 2.0 01/18/18 19:55 64 18 100 Nasal Cannula 2.0 28 01/18/18 16:00 93 01/18/18 16:00 97.2 72 22 121/69 95 Nasal Cannula 2.0 97.2 01/18/18 12:43 73 18 100 Nasal Cannula 2.0 28 01/18/18 12:38 28 01/18/18 12:36 70 18 98 Nasal Cannula 2.0 28 01/18/18 12:00 97.5 79 21 117/69 96 Nasal Cannula 2.0 97.5 01/18/18 12:00 68 Intake and Output 01/18/18 01/19/18 19:00 07:00 Intake Total 425.000 ml 360 ml Balance 425.000 ml 360 ml Intake Oral 360 ml IV Total 425.000 ml # Voids 2 3 General Appearance: WD/WN, no acute distress, other - obese female HEENT: normocephalic, atraumatic, anicteric, mucous membranes moist Respiratory/Chest: chest wall non-tender, lungs clear, normal breath sounds, no respiratory distress, no accessory muscle use Cardiovascular: normal peripheral pulses, normal rate, regular rhythm Abdomen: normal bowel sounds, soft, non tender, no organomegaly, non distended , other - chronic panniculitis Extremities: no cyanosis, no clubbing, other - 1-2+ PENNIE Microbiology Date/Time Source Procedure Growth Status 01/17/18 01:20 Blood Blood Culture - Preliminary NO GROWTH AFTER 48 HOURS Resulted 01/17/18 01:05 Blood Blood Culture - Preliminary NO GROWTH AFTER 48 HOURS Resulted 01/17/18 03:50 Nasal Nares Influenza Types A,B Antigen (CHEYENNE) - Final Complete 01/17/18 01:30 Urine,Clean Catch Urine Culture - Preliminary Gram Negative Kenny Mixed Gram Positive Organism Resulted Laboratory Tests 01/19/18 08:45: White Blood Count 7.2, Red Blood Count 4.27, Hemoglobin 11.4L, Hematocrit 35.5L , Mean Corpuscular Volume 83, Mean Corpuscular Hemoglobin 26.6L, Mean Corpuscular Hemoglobin Concent 32.0, Red Cell Distribution Width 16.8H, Platelet Count 233, Mean Platelet Volume 8.0, Neutrophils (%) (Auto) 62.1, Lymphocytes (%) (Auto) 22.5, Monocytes (%) (Auto) 10.8H, Eosinophils (%) (Auto) 3.4H, Basophils (%) (Auto) 1.2, Sodium Level 140, Potassium Level 3.8, Chloride Level 103, Carbon Dioxide Level 34H, Anion Gap 3L, Blood Urea Nitrogen 9, Creatinine 0.8, Estimat Glomerular Filtration Rate , Glucose Level 92, Calcium Level 8.8, Total Bilirubin 0.3, Aspartate Amino Transf (AST/SGOT) 24, Alanine Aminotransferase (ALT/SGPT) 25, Alkaline Phosphatase 124H, Troponin I 0.030, Total Protein 5.5L, Albumin 2.3L, Globulin 3.2, Albumin/Globulin Ratio 0.7L Current Medications Medications (Trade) Dose Ordered Sig/Wiliam Route PRN Reason Start Time Stop Time Status Last Admin Dose Admin Acetaminophen/ Hydrocodone Bitart ([place] 5/325) 1 tab Q4H PRN ORAL Moderate Pain (Pain Scale 4-6) 01/17/18 12:15 01/24/18 12:14 01/17/18 15:38 Acetaminophen/ Hydrocodone Bitart ([place] 7.5/325) 1 tab Q4H PRN ORAL Severe Pain (Pain Scale 7-10) 01/17/18 12:15 01/24/18 12:14 01/18/18 18:18 Albuterol/ Ipratropium (Albuterol/ Ipratropium) 3 ml Q4H PRN HHN Shortness of Breath 01/17/18 13:30 01/22/18 13:29 Albuterol/ Ipratropium (Albuterol/ Ipratropium) 3 ml Q6HRT HHN 01/17/18 19:00 01/22/18 18:59 01/19/18 11:09 Atorvastatin Calcium (Lipitor) 20 mg BEDTIME ORAL 01/17/18 21:00 02/16/18 20:59 01/18/18 21:57 Benzonatate (Tessalon Perles) 100 mg THREE TIMES A DAY ORAL 01/17/18 18:00 02/16/18 17:59 01/19/18 08:39 Chlorhexidine Gluconate (Zeinab-Hex 2%) 1 applic DAILY@2000 TOPIC 01/20/18 20:00 02/19/18 19:59 Clonazepam (KlonoPIN) 1 mg BEDTIME ORAL 01/17/18 21:00 01/24/18 20:59 01/18/18 21:56 Clopidogrel Bisulfate (Plavix) 75 mg DAILY ORAL 01/17/18 09:00 02/16/18 08:59 01/19/18 08:38 Dextrose (Dextrose 50%) STAT PRN IV Hypoglycemia 01/17/18 04:15 02/16/18 04:14 Duloxetine HCl (Cymbalta) 30 mg DAILY ORAL 01/17/18 09:00 02/16/18 08:59 01/19/18 08:38 Ferrous Sulfate (Feosol) 325 mg DAILY ORAL 01/17/18 09:00 02/16/18 08:59 01/19/18 08:38 Furosemide (Lasix) 40 mg EVERY 12 HOURS IV 01/18/18 21:00 02/17/18 20:59 01/19/18 08:42 Guaifenesin (Mucinex ER) 600 mg TWICE A DAY ORAL 01/17/18 13:30 02/16/18 13:29 01/19/18 08:40 Guaifenesin (Robitussin) 200 mg Q4H PRN ORAL For Cough 01/17/18 13:30 02/16/18 13:29 Heparin Sodium (Porcine) (Heparin 5000 units/ml) 5,000 units EVERY 12 HOURS SUBQ 01/17/18 09:00 02/16/18 08:59 01/19/18 08:50 Heparin Sodium/ Sodium Chloride (Heparin 2000 units/Ns 1000ml premix) 2,000 unit ONCE PRN INJ PICC line placement 01/20/18 08:00 01/20/18 23:59 Hydromorphone HCl (Dilaudid) 0.5 mg EVERY 4 HOURS PRN IVP SEVERE BREAKTHROUGH PAIN 01/17/18 12:45 01/24/18 04:14 Irbesartan (Avapro) 75 mg DAILY ORAL 01/18/18 09:00 02/17/18 08:59 01/19/18 08:39 Levofloxacin 150 ml @ 100 mls/hr Q24H IVPB 01/17/18 10:30 01/24/18 10:29 01/19/18 09:56 Lidocaine HCl (Xylocaine 1% 30ml) 30 ml ONCE PRN INJ PICC line placement 01/20/18 08:00 01/20/18 23:59 Memantine (Namenda) 10 mg Q12HR ORAL 01/17/18 10:00 02/16/18 09:59 01/18/18 09:25 Nystatin (Nystop Powder) 1 applic THREE TIMES A DAY TOPIC 01/17/18 16:00 02/16/18 15:59 01/19/18 08:38 Pantoprazole (Protonix) 40 mg EVERY 12 HOURS IVP 01/17/18 13:30 02/16/18 13:29 01/19/18 08:39 Potassium Chloride (K-Dur) 10 meq TWICE A DAY ORAL 01/18/18 18:00 02/17/18 17:59 01/19/18 08:41 Ramelteon (Rozerem) 8 mg QHS ORAL 01/17/18 21:00 02/16/18 20:59 01/18/18 00:02 Tobramycin Protocol (Tobramycin pharmacy to dose) 1 ea DAILY PRN MISC Per rx protocol 01/17/18 15:45 02/16/18 15:44 Tobramycin Sulfate 350 mg/ Sodium Chloride 110 ml @ 110 mls/hr Q36H IV 01/17/18 17:00 01/24/18 16:59 01/19/18 05:03 Vancomycin HCl (Vanco rx to dose) 1 ea DAILY PRN MISC Per rx protocol 01/17/18 15:45 02/16/18 15:44 Vancomycin HCl 1 gm/Dextrose 275 ml @ 183.708 mls/hr Q24H IVPB 01/18/18 17:00 01/23/18 23:59 01/18/18 17:02 LORENA HUBBARD M.D. Jan 19, 2018 11:24
[2018-01-19 12:00] VITALS: BP 94/46
--- NOTE | 2018-01-19 12:24 | Diagnostic Imaging Report ---
Indication: Reason For Exam: INFECT Technique: Portable AP view of the chest Comparison: 01/16/2018 Findings: Patient rotated and leaning to the right. Evaluation also degraded due to underpenetration, likely related to patient's body habitus. Heart size and mediastinal contours appear stable allowing for differences in patient positioning. Retrocardiac atelectasis or consolidation cannot be excluded. There is no definite pneumothorax. Osseous structures appear stable. Impression: Limited exam. Cardiomegaly and possible mild interstitial opacification/edema. Retrocardiac atelectasis/consolidation not entirely excluded.
--- NOTE | 2018-01-19 12:42 | General Surgery Progress Note ---
General Surgery-Progress Note Subjective Additional Comments doing well. no acute events. no n/v/f/c. duplex without DVT. still with dependant panniculitis Objective Last 24 Hour Vital Signs Date Time Temp Pulse Resp B/P (MAP) Pulse Ox O2 Delivery O2 Flow Rate FiO2 01/19/18 11:40 77 18 99 Nasal Cannula 2.0 28 01/19/18 11:34 28 01/19/18 11:33 69 98 Nasal Cannula 2.0 28 01/19/18 08:39 108/69 01/19/18 08:00 97.9 72 22 108/69 98 Nasal Cannula 2.0 97.9 01/19/18 08:00 71 01/19/18 07:06 Nasal Cannula 2.0 28 01/19/18 07:06 98 Nasal Cannula 2.0 28 01/19/18 06:58 69 18 100 Nasal Cannula 2.0 28 01/19/18 06:48 28 01/19/18 06:47 68 18 99 Nasal Cannula 2.0 28 01/19/18 04:00 98.6 76 19 109/57 94 Nasal Cannula 2.0 98.6 01/19/18 04:00 74 01/19/18 03:31 Nasal Cannula 01/19/18 03:30 75 18 100 Nasal Cannula 2.0 28 01/19/18 00:00 98.5 67 19 92/54 95 Nasal Cannula 2.0 98.5 01/19/18 00:00 72 01/18/18 20:00 71 01/18/18 20:00 98.6 71 20 102/45 97 Nasal Cannula 2.0 98.6 01/18/18 19:56 28 01/18/18 19:56 97 Nasal Cannula 2.0 01/18/18 19:56 64 18 100 Nasal Cannula 2.0 28 01/18/18 19:56 Nasal Cannula 2.0 01/18/18 19:55 64 18 100 Nasal Cannula 2.0 28 01/18/18 16:00 93 01/18/18 16:00 97.2 72 22 121/69 95 Nasal Cannula 2.0 97.2 01/18/18 12:43 73 18 100 Nasal Cannula 2.0 28 I&O Intake and Output 01/18/18 01/19/18 19:00 07:00 Intake Total 425.000 ml 360 ml Balance 425.000 ml 360 ml Intake Oral 360 ml IV Total 425.000 ml # Voids 2 3 Wound: clean Drains: none Cardiovascular: RSR Respiratory: decreased breath sounds Abdomen: soft, other - obese, multiple prior surgical scars well healed, left sided lower panniculitis Extremities: no cyanosis Laboratory Tests Test 01/19/18 08:45 White Blood Count 7.2 K/UL (4.8-10.8) Red Blood Count 4.27 M/UL (4.20-5.40) Hemoglobin 11.4 G/DL (12.0-16.0) L Hematocrit 35.5 % (37.0-47.0) L Mean Corpuscular Volume 83 FL (80-99) Mean Corpuscular Hemoglobin 26.6 PG (27.0-31.0) L Mean Corpuscular Hemoglobin Concent 32.0 G/DL (32.0-36.0) Red Cell Distribution Width 16.8 % (11.6-14.8) H Platelet Count 233 K/UL (150-450) Mean Platelet Volume 8.0 FL (6.5-10.1) Neutrophils (%) (Auto) 62.1 % (45.0-75.0) Lymphocytes (%) (Auto) 22.5 % (20.0-45.0) Monocytes (%) (Auto) 10.8 % (1.0-10.0) H Eosinophils (%) (Auto) 3.4 % (0.0-3.0) H Basophils (%) (Auto) 1.2 % (0.0-2.0) Sodium Level 140 MMOL/L (136-145) Potassium Level 3.8 MMOL/L (3.5-5.1) Chloride Level 103 MMOL/L (98-107) Carbon Dioxide Level 34 MMOL/L (21-32) H Anion Gap 3 mmol/L (5-15) L Blood Urea Nitrogen 9 mg/dL (7-18) Creatinine 0.8 MG/DL (0.55-1.30) Estimat Glomerular Filtration Rate mL/min (>60) Glucose Level 92 MG/DL (74-106) Calcium Level 8.8 MG/DL (8.5-10.1) Total Bilirubin 0.3 MG/DL (0.2-1.0) Aspartate Amino Transf (AST/SGOT) 24 U/L (15-37) Alanine Aminotransferase (ALT/SGPT) 25 U/L (12-78) Alkaline Phosphatase 124 U/L (46-116) H Troponin I 0.030 ng/mL (0.000-0.056) Total Protein 5.5 G/DL (6.4-8.2) L Albumin 2.3 G/DL (3.4-5.0) L Globulin 3.2 g/dL Albumin/Globulin Ratio 0.7 (1.0-2.7) L Plan Problems: (1) Panniculitis Assessment & Plan: [id number] with multiple prior abdominal surgeries for hernia with prior complications and recurrence. Has large pannus with mild superficial panniculitis. currently admitted for respiratory problems and UTI. abdominal discomfort minimal. no signs or symptoms of obstruction. hernia large and abdomen benign except for chronic issues such as pannus. -no surgical intervention necessary. -PENDING CT to evaluate for possible underlying abscess but very unlikely. on exam chronic skin changes from pannus and mild superficial abrasions from pannus on thigh with moist skin. -As for wound care, keep area between pannus and thigh clean and dry. -would NOT recommend hernia surgery unless emergency (i.e. not reducible or strangulated) as patient is very high risk. he has had multiple prior failed attempts at ventral hernia repair and some associated with significant complications and morbidity. thank you for this consult. will follow with Adriano Jo Jan 19, 2018 12:42
--- NOTE | 2018-01-19 14:21 | Diagnostic Imaging Report ---
Indication: Chest pain; Abdominal pain Technique: CT of the chest, abdomen and pelvis utilizing automated exposure control without intravenous or oral contrast. CT dose: Total DLP 3320.71 mGycm; CTDI vol 29.93,19.95,19.95,19.95 mGy Comparison: None Findings: Please note that evaluation of the mediastinal structures, abdominal and pelvic viscera is limited without the use of intravenous and oral contrast. Within these limitations, the following observations are made: CT chest: Heart is enlarged. Coronary arterial calcifications are noted. No pericardial effusion. Thoracic aorta appears normal in caliber however evaluation is limited due to motion artifact. Mild atherosclerotic calcifications are noted in the thoracic aorta. There is a 1.2 cm low-attenuation lesion in the right lobe of the thyroid. No bulky, confluent mediastinal lymphadenopathy is appreciated. There is a 5 cm fluid attenuation structure in the left axilla which may represent a seroma given probable prior axillary lymph node dissection. Contrast provide a better evaluation. There are small bilateral pleural effusions, left greater than right, with adjacent consolidations in the bilateral lower lobes. There is no pneumothorax. Degenerative changes of the right shoulder and thoracic spine noted, with fusion of multiple lower thoracic vertebral bodies. CT abdomen/pelvis: The patient is status post cholecystectomy. There is a massive ventral hernia which contains the majority of the bowel as well as portions of the liver, spleen, stomach and pancreas. A punctate calcification is noted in the liver, possibly sequela of prior trauma or granulomatous exposure. Spleen, pancreas and adrenal glands grossly unremarkable. Kidneys are symmetric in size without evidence of hydronephrosis. No urinary tract stones are appreciated. Bladder is unremarkable. Likely calcified fibroid noted within the uterus. No free intraperitoneal air is identified. There is no evidence to suggest bowel obstruction. Abdominal aorta is normal in caliber. No bulky/confluent lymphadenopathy is appreciated. There are multilevel degenerative changes of the thoracic spine with grade 1 anterolisthesis of L5 on S1. There is marked edema and skin thickening of the dependent portions of the large pannus. Correlate with physical exam to exclude cellulitis. There is no well-defined/drainable fluid collection. IMPRESSION: Limited exam without intravenous and oral contrast. Within these limitations: * Massive ventral hernia with the nearly all of the bowel as well as portions of the liver, spleen and pancreas herniating through the defect and located within the large pannus. * Dependent edema and skin thickening on the inferior portions of the pannus. Correlate clinically to exclude cellulitis. No well-defined/drainable fluid collection identified at this time. * Small bilateral pleural effusions with adjacent atelectasis/consolidation in the bilateral lower lobes. * Cardiomegaly with probable coronary arterial calcification. * 5 cm fluid partially visualized fluid attenuation structure in the region of the left axilla. This may represent a seroma given multiple surgical clips in the left axilla. Additional etiologies not excluded. Contrast-enhanced exam recommended for better evaluation. Additional findings as above. The CT scanner at [facility] is accredited by the [employer] and the scans are performed using protocols designed to limit radiation exposure to as low as reasonably achievable to attain images of sufficient resolution adequate for diagnostic evaluation.
[2018-01-19 16:00] VITALS: BP 109/71
--- NOTE | 2018-01-19 16:14 | Cardiac Electrophysiology PN ---
Assessment/Plan Assessment/Plan 1. Troponin leak. The patient's creatinine is within normal range. Two follow up troponinw were negative. Her echocardiogram showed ejection fraction of 45% to 50% and her initial EKG was essentially normal. 2. Congestive heart failure. BNP of more than 2000 and ejection fraction of 45% to 50%. Continue Lasix 40 mg IV b.i.d. 3. Hypertension, on Avapro 75 mg daily and Lasix. 4. Hyperlipidemia, on Lipitor. 5. Pneumonia, on IV antibiotic and nebulizer. AMY RN Subjective Subjective Feeling better with iv Lasix. RN at bedside. Objective Last 24 Hour Vital Signs Date Time Temp Pulse Resp B/P (MAP) Pulse Ox O2 Delivery O2 Flow Rate FiO2 01/19/18 16:00 98.1 86 19 109/71 95 Nasal Cannula 2.0 98.1 01/19/18 12:00 97.0 68 21 94/46 98 Nasal Cannula 2.0 97.0 01/19/18 12:00 71 01/19/18 11:40 77 18 99 Nasal Cannula 2.0 28 01/19/18 11:34 28 01/19/18 11:33 69 98 Nasal Cannula 2.0 28 01/19/18 08:39 108/69 01/19/18 08:00 97.9 72 22 108/69 98 Nasal Cannula 2.0 97.9 01/19/18 08:00 71 01/19/18 07:06 Nasal Cannula 2.0 28 01/19/18 07:06 98 Nasal Cannula 2.0 28 01/19/18 06:58 69 18 100 Nasal Cannula 2.0 28 01/19/18 06:48 28 01/19/18 06:47 68 18 99 Nasal Cannula 2.0 28 01/19/18 04:00 98.6 76 19 109/57 94 Nasal Cannula 2.0 98.6 01/19/18 04:00 74 01/19/18 03:31 Nasal Cannula 01/19/18 03:30 75 18 100 Nasal Cannula 2.0 28 01/19/18 00:00 98.5 67 19 92/54 95 Nasal Cannula 2.0 98.5 01/19/18 00:00 72 01/18/18 20:00 71 01/18/18 20:00 98.6 71 20 102/45 97 Nasal Cannula 2.0 98.6 01/18/18 19:56 28 01/18/18 19:56 97 Nasal Cannula 2.0 01/18/18 19:56 64 18 100 Nasal Cannula 2.0 28 01/18/18 19:56 Nasal Cannula 2.0 01/18/18 19:55 64 18 100 Nasal Cannula 2.0 28 Intake and Output 01/18/18 01/19/18 19:00 07:00 Intake Total 425.000 ml 360 ml Balance 425.000 ml 360 ml Intake Oral 360 ml IV Total 425.000 ml # Voids 2 3 Laboratory Tests Test 01/19/18 08:45 White Blood Count 7.2 K/UL (4.8-10.8) Red Blood Count 4.27 M/UL (4.20-5.40) Hemoglobin 11.4 G/DL (12.0-16.0) L Hematocrit 35.5 % (37.0-47.0) L Mean Corpuscular Volume 83 FL (80-99) Mean Corpuscular Hemoglobin 26.6 PG (27.0-31.0) L Mean Corpuscular Hemoglobin Concent 32.0 G/DL (32.0-36.0) Red Cell Distribution Width 16.8 % (11.6-14.8) H Platelet Count 233 K/UL (150-450) Mean Platelet Volume 8.0 FL (6.5-10.1) Neutrophils (%) (Auto) 62.1 % (45.0-75.0) Lymphocytes (%) (Auto) 22.5 % (20.0-45.0) Monocytes (%) (Auto) 10.8 % (1.0-10.0) H Eosinophils (%) (Auto) 3.4 % (0.0-3.0) H Basophils (%) (Auto) 1.2 % (0.0-2.0) Sodium Level 140 MMOL/L (136-145) Potassium Level 3.8 MMOL/L (3.5-5.1) Chloride Level 103 MMOL/L (98-107) Carbon Dioxide Level 34 MMOL/L (21-32) H Anion Gap 3 mmol/L (5-15) L Blood Urea Nitrogen 9 mg/dL (7-18) Creatinine 0.8 MG/DL (0.55-1.30) Estimat Glomerular Filtration Rate mL/min (>60) Glucose Level 92 MG/DL (74-106) Calcium Level 8.8 MG/DL (8.5-10.1) Total Bilirubin 0.3 MG/DL (0.2-1.0) Aspartate Amino Transf (AST/SGOT) 24 U/L (15-37) Alanine Aminotransferase (ALT/SGPT) 25 U/L (12-78) Alkaline Phosphatase 124 U/L (46-116) H Troponin I 0.030 ng/mL (0.000-0.056) Total Protein 5.5 G/DL (6.4-8.2) L Albumin 2.3 G/DL (3.4-5.0) L Globulin 3.2 g/dL Albumin/Globulin Ratio 0.7 (1.0-2.7) L Microbiology Date/Time Source Procedure Growth Status 01/17/18 01:20 Blood Blood Culture - Preliminary NO GROWTH AFTER 48 HOURS Resulted 01/17/18 01:05 Blood Blood Culture - Preliminary NO GROWTH AFTER 48 HOURS Resulted 01/17/18 03:50 Nasal Nares Influenza Types A,B Antigen ([place]) - Final Complete 01/17/18 01:30 Urine,Clean Catch Urine Culture - Final Escherichia Coli Mixed Gram Positive Organism Complete Objective HEAD AND NECK: Showed no JVD. LUNGS: Coarse rhonchi. CARDIOVASCULAR: Shows regular S1 and S2 with no gallop. ABDOMEN: Soft and morbidly obese. EXTREMITIES: No pitting edema. MIKE DIAL Jan 19, 2018 16:14
[2018-01-19] MEDS: Vancomycin 1gm/D5W 275ml IVPB SCH ×2 (17:03)
--- NOTE | 2018-01-19 18:30 | Infectious Diseases Prog Note ---
Assessment/Plan Assessment/Plan ASSESSMENT AND PLAN: 1. e.coli uti, ? cap vs atx/edema, abdominal wall cellulitis/panniculitis, ct noted, chest x-ray noted - continue vancomycin and levofloxacin - day # 3 abx - check f/u labs and chest x-ray, sc if possible 2. Fungal rash. The patient on nystatin. 3. Anemia. 4. Obesity. 5. History of hernia surgery. 6. Depression. 7. No history of diabetes or hypertension. 8. Allergies to clindamycin, penicillin, and phenytoin. 9. Social history is negative. 10. Family history is noncontributory. 11. MAR was noted. 12. Case was discussed with RN. 13. Case was discussed with Dr. Guerrero and Surgery. 14. Notes and records were noted. 15. Orders were entered. Subjective Constitutional: Denies: fever HEENT: Denies: congestion Respiratory: Denies: shortness of breath Cardiovascular: Denies: chest pain Gastrointestinal/Abdominal: Denies: nausea, vomiting, diarrhea Genitourinary: Denies: dysuria, hematuria, frequency Neurologic: Denies: headache Psychiatric: Denies: depression Skin: Denies: rash Hematologic: Denies: bleeding Musculoskeletal: Denies: pain Allergies: Coded Allergies: CLINDAMYCIN (Verified Allergy, Unknown, 01/16/18) PENICILLINS (Verified Allergy, Unknown, 01/16/18) PHENYTOIN (Verified Allergy, Unknown, 01/16/18) Objective Vital Signs Last 24 Hour Vital Signs Date Time Temp Pulse Resp B/P (MAP) Pulse Ox O2 Delivery O2 Flow Rate FiO2 01/19/18 16:00 98.1 86 19 109/71 95 Nasal Cannula 2.0 98.1 01/19/18 16:00 70 01/19/18 12:00 97.0 68 21 94/46 98 Nasal Cannula 2.0 97.0 01/19/18 12:00 71 01/19/18 11:40 77 18 99 Nasal Cannula 2.0 28 01/19/18 11:34 28 01/19/18 11:33 69 98 Nasal Cannula 2.0 28 01/19/18 08:39 108/69 01/19/18 08:00 97.9 72 22 108/69 98 Nasal Cannula 2.0 97.9 01/19/18 08:00 71 01/19/18 07:06 Nasal Cannula 2.0 28 01/19/18 07:06 98 Nasal Cannula 2.0 28 01/19/18 06:58 69 18 100 Nasal Cannula 2.0 28 01/19/18 06:48 28 01/19/18 06:47 68 18 99 Nasal Cannula 2.0 28 01/19/18 04:00 98.6 76 19 109/57 94 Nasal Cannula 2.0 98.6 01/19/18 04:00 74 01/19/18 03:31 Nasal Cannula 01/19/18 03:30 75 18 100 Nasal Cannula 2.0 28 01/19/18 00:00 98.5 67 19 92/54 95 Nasal Cannula 2.0 98.5 01/19/18 00:00 72 01/18/18 20:00 71 01/18/18 20:00 98.6 71 20 102/45 97 Nasal Cannula 2.0 98.6 01/18/18 19:56 28 01/18/18 19:56 97 Nasal Cannula 2.0 01/18/18 19:56 64 18 100 Nasal Cannula 2.0 28 01/18/18 19:56 Nasal Cannula 2.0 01/18/18 19:55 64 18 100 Nasal Cannula 2.0 28 Height (Feet): 5 Height (Inches): 0.00 Weight (Pounds): 242 General Appearance: no acute distress HEENT: normocephalic, atraumatic, anicteric, mucous membranes moist Respiratory/Chest: lungs clear, normal breath sounds, no respiratory distress, no accessory muscle use Cardiovascular: normal rate, regular rhythm, no gallop/murmur, no JVD Abdomen: normal bowel sounds, soft, non tender, no organomegaly, non distended , other - panniculitis and cellulitis less Genitourinary: other - no ford Extremities: no cyanosis Skin: no rash 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 Evaluation also degraded due to under penetration, likely related to patient's body habitus. Heart size and mediastinal contours appear stable allowing for differences in patient positioning. Retrocardiac atelectasis or consolidation cannot be excluded. There is no definite pneumothorax. Osseous structures appear stable. Impression: Limited exam. Cardiomegaly and possible mild interstitial opacification/edema. Retrocardiac atelectasis/consolidation not entirely excluded. CT abdomen and pelvis - IMPRESSION: Limited exam without intravenous and oral contrast. Within these limitations: * Massive ventral hernia with the nearly all of the bowel as well as portions of the liver, spleen and pancreas herniating through the defect and located within the large pannus. * Dependent edema and skin thickening on the inferior portions of the pannus. Correlate clinically to exclude cellulitis. No well-defined/drainable fluid collection identified at this time. * Small bilateral pleural effusions with adjacent atelectasis/consolidation in the bilateral lower lobes. * Cardiomegaly with probable coronary arterial calcification. * 5 cm fluid partially visualized fluid attenuation structure in the region of the left axilla. This may represent a seroma given multiple surgical clips in the left axilla. Additional etiologies not excluded. Contrast-enhanced exam recommended for better evaluation. Microbiology Date/Time Source Procedure Growth Status 01/17/18 01:20 Blood Blood Culture - Preliminary NO GROWTH AFTER 48 HOURS Resulted 01/17/18 01:05 Blood Blood Culture - Preliminary NO GROWTH AFTER 48 HOURS Resulted 01/17/18 03:50 Nasal Nares Influenza Types A,B Antigen ([place]) - Final Complete 01/17/18 01:30 Urine,Clean Catch Urine Culture - Final Escherichia Coli Mixed Gram Positive Organism Complete Laboratory Tests Test 01/19/18 08:45 White Blood Count 7.2 K/UL (4.8-10.8) Red Blood Count 4.27 M/UL (4.20-5.40) Hemoglobin 11.4 G/DL (12.0-16.0) L Hematocrit 35.5 % (37.0-47.0) L Mean Corpuscular Volume 83 FL (80-99) Mean Corpuscular Hemoglobin 26.6 PG (27.0-31.0) L Mean Corpuscular Hemoglobin Concent 32.0 G/DL (32.0-36.0) Red Cell Distribution Width 16.8 % (11.6-14.8) H Platelet Count 233 K/UL (150-450) Mean Platelet Volume 8.0 FL (6.5-10.1) Neutrophils (%) (Auto) 62.1 % (45.0-75.0) Lymphocytes (%) (Auto) 22.5 % (20.0-45.0) Monocytes (%) (Auto) 10.8 % (1.0-10.0) H Eosinophils (%) (Auto) 3.4 % (0.0-3.0) H Basophils (%) (Auto) 1.2 % (0.0-2.0) Sodium Level 140 MMOL/L (136-145) Potassium Level 3.8 MMOL/L (3.5-5.1) Chloride Level 103 MMOL/L (98-107) Carbon Dioxide Level 34 MMOL/L (21-32) H Anion Gap 3 mmol/L (5-15) L Blood Urea Nitrogen 9 mg/dL (7-18) Creatinine 0.8 MG/DL (0.55-1.30) Estimat Glomerular Filtration Rate mL/min (>60) Glucose Level 92 MG/DL (74-106) Calcium Level 8.8 MG/DL (8.5-10.1) Total Bilirubin 0.3 MG/DL (0.2-1.0) Aspartate Amino Transf (AST/SGOT) 24 U/L (15-37) Alanine Aminotransferase (ALT/SGPT) 25 U/L (12-78) Alkaline Phosphatase 124 U/L (46-116) H Troponin I 0.030 ng/mL (0.000-0.056) Total Protein 5.5 G/DL (6.4-8.2) L Albumin 2.3 G/DL (3.4-5.0) L Globulin 3.2 g/dL Albumin/Globulin Ratio 0.7 (1.0-2.7) L Current Medications Medications (Trade) Dose Ordered Sig/Wiliam Route PRN Reason Start Time Stop Time Status Last Admin Dose Admin Acetaminophen/ Hydrocodone Bitart ([place] 5/325) 1 tab Q4H PRN ORAL Moderate Pain (Pain Scale 4-6) 01/17/18 12:15 01/24/18 12:14 01/17/18 15:38 Acetaminophen/ Hydrocodone Bitart ([place] 7.5/325) 1 tab Q4H PRN ORAL Severe Pain (Pain Scale 7-10) 01/17/18 12:15 01/24/18 12:14 01/18/18 18:18 Albuterol/ Ipratropium (Albuterol/ Ipratropium) 3 ml Q4H PRN HHN Shortness of Breath 01/17/18 13:30 01/22/18 13:29 Albuterol/ Ipratropium (Albuterol/ Ipratropium) 3 ml Q6HRT HHN 01/17/18 19:00 01/22/18 18:59 01/19/18 11:09 Atorvastatin Calcium (Lipitor) 20 mg BEDTIME ORAL 01/17/18 21:00 02/16/18 20:59 01/18/18 21:57 Benzonatate (Tessalon Perles) 100 mg THREE TIMES A DAY ORAL 01/17/18 18:00 02/16/18 17:59 01/19/18 17:03 Chlorhexidine Gluconate (Zeinab-Hex 2%) 1 applic DAILY@2000 TOPIC 01/20/18 20:00 02/19/18 19:59 Clonazepam (KlonoPIN) 1 mg BEDTIME ORAL 01/17/18 21:00 01/24/18 20:59 01/18/18 21:56 Clopidogrel Bisulfate (Plavix) 75 mg DAILY ORAL 01/17/18 09:00 02/16/18 08:59 01/19/18 08:38 Dextrose (Dextrose 50%) STAT PRN IV Hypoglycemia 01/17/18 04:15 02/16/18 04:14 Duloxetine HCl (Cymbalta) 30 mg DAILY ORAL 01/17/18 09:00 02/16/18 08:59 01/19/18 08:38 Ferrous Sulfate (Feosol) 325 mg DAILY ORAL 01/17/18 09:00 02/16/18 08:59 01/19/18 08:38 Furosemide (Lasix) 40 mg EVERY 12 HOURS IV 01/18/18 21:00 02/17/18 20:59 01/19/18 08:42 Guaifenesin (Mucinex ER) 600 mg TWICE A DAY ORAL 01/17/18 13:30 02/16/18 13:29 01/19/18 17:03 Guaifenesin (Robitussin) 200 mg Q4H PRN ORAL For Cough 01/17/18 13:30 02/16/18 13:29 Heparin Sodium (Porcine) (Heparin 5000 units/ml) 5,000 units EVERY 12 HOURS SUBQ 01/17/18 09:00 02/16/18 08:59 01/19/18 08:50 Heparin Sodium/ Sodium Chloride (Heparin 2000 units/Ns 1000ml premix) 2,000 unit ONCE PRN INJ PICC line placement 01/20/18 08:00 01/20/18 23:59 Hydromorphone HCl (Dilaudid) 0.5 mg EVERY 4 HOURS PRN IVP SEVERE BREAKTHROUGH PAIN 01/17/18 12:45 01/24/18 04:14 Irbesartan (Avapro) 75 mg DAILY ORAL 01/18/18 09:00 02/17/18 08:59 01/19/18 08:39 Levofloxacin 150 ml @ 100 mls/hr Q48H IVPB 01/21/18 10:30 01/28/18 10:29 Lidocaine HCl (Xylocaine 1% 30ml) 30 ml ONCE PRN INJ PICC line placement 01/20/18 08:00 01/20/18 23:59 Memantine (Namenda) 10 mg Q12HR ORAL 01/17/18 10:00 02/16/18 09:59 01/18/18 09:25 Nystatin (Nystop Powder) 1 applic THREE TIMES A DAY TOPIC 01/17/18 16:00 02/16/18 15:59 01/19/18 17:03 Pantoprazole (Protonix) 40 mg EVERY 12 HOURS IVP 01/17/18 13:30 02/16/18 13:29 01/19/18 08:39 Potassium Chloride (K-Dur) 10 meq TWICE A DAY ORAL 01/18/18 18:00 02/17/18 17:59 01/19/18 17:03 Ramelteon (Rozerem) 8 mg QHS ORAL 01/17/18 21:00 02/16/18 20:59 01/18/18 00:02 Tobramycin Protocol (Tobramycin pharmacy to dose) 1 ea DAILY PRN MISC Per rx protocol 01/17/18 15:45 02/16/18 15:44 Tobramycin Sulfate 350 mg/ Sodium Chloride 110 ml @ 110 mls/hr Q36H IV 01/17/18 17:00 01/24/18 16:59 01/19/18 05:03 Vancomycin HCl (Vanco rx to dose) 1 ea DAILY PRN MISC Per rx protocol 01/17/18 15:45 02/16/18 15:44 Vancomycin HCl 1 gm/Dextrose 275 ml @ 183.708 mls/hr Q24H IVPB 01/18/18 17:00 01/23/18 23:59 01/19/18 17:03 JAX RETANA 18, 2018 18:30
[2018-01-19 20:00] VITALS: BP 113/56
--- NOTE | 2018-01-19 20:13 | General Progress Note ---
Assessment/Plan Assessment/Plan Problem List: (1) Acute on chronic diastolic (congestive) heart failure ICD Codes: I50.33 - Acute on chronic diastolic (congestive) heart failure SNOMED: 57412464, 731880778 (2) UTI (urinary tract infection) ICD Codes: N39.0 - Urinary tract infection, site not specified SNOMED: 36346100 (3) Panniculitis ICD Codes: M79.3 - Panniculitis, unspecified SNOMED: 60301325 (4) Abdominal wall cellulitis ICD Codes: L03.311 - Cellulitis of abdominal wall SNOMED: 09170522 (5) Morbid obesity ICD Codes: E66.01 - Morbid (severe) obesity due to excess calories SNOMED: 643681101, 87093926510312 (6) Probable MISSY (7) HTN (hypertension) ICD Codes: I10 - Essential (primary) hypertension SNOMED: 21551541 (8) Hypokalemia ICD Codes: E87.6 - Hypokalemia SNOMED: 69013431 (9) Hypomagnesemia ICD Codes: E83.42 - Hypomagnesemia SNOMED: 319448495 Status: stable Assessment/Plan Cards, Pulm, ID, gen surgery consulted - appreciate recs s/p PICC line placement CT abd/p to rule out underlying pocket of infection Not likely surgical & receiving plavix abx per ID F/u cultures TTE reviewed Tn down trending, suspect leak BNP 2000 Lasix per Cards for CHF Cont O2 and wean as tolerated Duonebs ATC and PRN Suction PRN Swallow eval Wound care Replete lytes Cont home meds Pain control, bowel regimen Supportive care PT/OT DVT Prophylaxis: SCD, HSQ Code Status: Full Hospital Classification Declaration: Based on this initial evaluation, and depending on the patient's clinical course, I anticipate that this patient will require hospitalization for 2-3 days for UTI, panniculitis/abd wall cellulitis, CHF and close respiratory/hemodynamic monitoring. Disposition: Once the patient is stable to leave the hospital, I anticipate the patient will likely be discharged to the following environment: home with HH vs SNF (pt declines SNF) I spent 42 minutes on this patient's case, and 24 min was dedicated to counseling and/or care coordination. Discussed with patient/family, nursing staff, SW/CM, pulm, ID, gen surg regarding clinical status, treatment course, and disposition planning. Time of note may not reflect time of encounter. Subjective Date patient seen: Jan 19, 2018 Allergies: Coded Allergies: CLINDAMYCIN (Verified Allergy, Unknown, 01/16/18) PENICILLINS (Verified Allergy, Unknown, 01/16/18) PHENYTOIN (Verified Allergy, Unknown, 01/16/18) Subjective no acute events afebrile and hds tolerating abx receiving lasix cardiology evaluation noted ROS: Constitutional: Reports: malaise, weakness Eye: Reports: no symptoms ENT: Reports: no symptoms Respiratory: Reports: cough, shortness of breath, MANZANARES Cardiovascular: Reports: no symptoms Gastrointestinal: Reports: abdominal pain Genitourinary: Reports: no symptoms Musculoskeletal: Reports: no symptoms Skin: Reports: no symptoms Psychiatric: Reports: no symptoms Neurological: Reports: no symptoms Endocrine: Reports: no symptoms Hematologic/Lymphatic: Reports: no symptoms Objective Last 24 Hour Vital Signs Date Time Temp Pulse Resp B/P (MAP) Pulse Ox O2 Delivery O2 Flow Rate FiO2 01/19/18 19:01 68 18 99 Nasal Cannula 2.0 28 01/19/18 18:50 98 Nasal Cannula 2.0 28 01/19/18 18:50 Nasal Cannula 2.0 28 01/19/18 18:50 67 18 98 Nasal Cannula 2.0 28 01/19/18 16:00 98.1 86 19 109/71 95 Nasal Cannula 2.0 98.1 01/19/18 16:00 70 01/19/18 12:00 97.0 68 21 94/46 98 Nasal Cannula 2.0 97.0 01/19/18 12:00 71 01/19/18 11:40 77 18 99 Nasal Cannula 2.0 28 01/19/18 11:34 28 01/19/18 11:33 69 98 Nasal Cannula 2.0 28 01/19/18 08:39 108/69 01/19/18 08:00 97.9 72 22 108/69 98 Nasal Cannula 2.0 97.9 01/19/18 08:00 71 01/19/18 07:06 Nasal Cannula 2.0 28 01/19/18 07:06 98 Nasal Cannula 2.0 28 01/19/18 06:58 69 18 100 Nasal Cannula 2.0 28 01/19/18 06:48 28 01/19/18 06:47 68 18 99 Nasal Cannula 2.0 28 01/19/18 04:00 98.6 76 19 109/57 94 Nasal Cannula 2.0 98.6 01/19/18 04:00 74 01/19/18 03:31 Nasal Cannula 01/19/18 03:30 75 18 100 Nasal Cannula 2.0 28 01/19/18 00:00 98.5 67 19 92/54 95 Nasal Cannula 2.0 98.5 01/19/18 00:00 72 Intake and Output 01/18/18 01/19/18 19:00 07:00 Intake Total 425.000 ml 360 ml Balance 425.000 ml 360 ml Intake Oral 360 ml IV Total 425.000 ml # Voids 2 3 Laboratory Tests 01/19/18 08:45: White Blood Count 7.2, Red Blood Count 4.27, Hemoglobin 11.4L, Hematocrit 35.5L , Mean Corpuscular Volume 83, Mean Corpuscular Hemoglobin 26.6L, Mean Corpuscular Hemoglobin Concent 32.0, Red Cell Distribution Width 16.8H, Platelet Count 233, Mean Platelet Volume 8.0, Neutrophils (%) (Auto) 62.1, Lymphocytes (%) (Auto) 22.5, Monocytes (%) (Auto) 10.8H, Eosinophils (%) (Auto) 3.4H, Basophils (%) (Auto) 1.2, Sodium Level 140, Potassium Level 3.8, Chloride Level 103, Carbon Dioxide Level 34H, Anion Gap 3L, Blood Urea Nitrogen 9, Creatinine 0.8, Estimat Glomerular Filtration Rate , Glucose Level 92, Calcium Level 8.8, Total Bilirubin 0.3, Aspartate Amino Transf (AST/SGOT) 24, Alanine Aminotransferase (ALT/SGPT) 25, Alkaline Phosphatase 124H, Troponin I 0.030, Total Protein 5.5L, Albumin 2.3L, Globulin 3.2, Albumin/Globulin Ratio 0.7L Height (Feet): 5 Height (Inches): 0.00 Weight (Pounds): 242 Objective Physical Exam Narrative General: alert, cooperative, no distress, appears stated age Head: normocephalic, without obvious abnormality, atraumatic Eyes: conjunctivae/corneas clear. PERRL, EOM's intact Throat: lips, mucosa, and tongue normal. MMM Neck: supple, symmetrical, trachea midline, and no JVD Lungs: clear to auscultation bilaterally Heart: regular rate and rhythm, S1, S2 normal, no murmur, click, rub or gallop Abdomen: soft, obese abd, +large pannus, panniculitis around superficial lower left, prior surgical scars noted, serous drainage noted around pannus from superficial abrasions Extremities: extremities normal, atraumatic, no cyanosis or edema Pulses: 2+ and symmetric Skin: skin color, texture, turgor normal; no rashes or lesions Neurologic: grossly normal, no focal deficits Junior Flores MD Jan 19, 2018 20:13
[2018-01-19] MEDS: Atorvastatin 20mg tab ORAL SCH (20:14)
[2018-01-19] MEDS: Ramelteon 8mg tab (Approved for Delirium use only) ORAL SCH (20:14)
[2018-01-19] MEDS ORDERED: Miralax 17gm pkt ORAL PRN (22:00)
[2018-01-19] MEDS: Docusate 100mg cap ORAL SCH (22:20)
--- NOTE | 2018-01-19 22:25 | Psych Consult Progress Note ---
Psych Consult Progress Note Consult 01/18/18 mdd anxiety Cymbalta 30mg q daily Klonopin 1mg qhs no roseram on formulary Vital Signs Last 24 Hour Vital Signs Date Time Temp Pulse Resp B/P (MAP) Pulse Ox O2 Delivery O2 Flow Rate FiO2 01/19/18 19:01 68 18 99 Nasal Cannula 2.0 28 01/19/18 18:50 98 Nasal Cannula 2.0 28 01/19/18 18:50 Nasal Cannula 2.0 28 01/19/18 18:50 67 18 98 Nasal Cannula 2.0 28 01/19/18 16:00 98.1 86 19 109/71 95 Nasal Cannula 2.0 98.1 01/19/18 16:00 70 01/19/18 12:00 97.0 68 21 94/46 98 Nasal Cannula 2.0 97.0 01/19/18 12:00 71 01/19/18 11:40 77 18 99 Nasal Cannula 2.0 28 01/19/18 11:34 28 01/19/18 11:33 69 98 Nasal Cannula 2.0 28 01/19/18 08:39 108/69 01/19/18 08:00 97.9 72 22 108/69 98 Nasal Cannula 2.0 97.9 01/19/18 08:00 71 01/19/18 07:06 Nasal Cannula 2.0 28 01/19/18 07:06 98 Nasal Cannula 2.0 28 01/19/18 06:58 69 18 100 Nasal Cannula 2.0 28 01/19/18 06:48 28 01/19/18 06:47 68 18 99 Nasal Cannula 2.0 28 01/19/18 04:00 98.6 76 19 109/57 94 Nasal Cannula 2.0 98.6 01/19/18 04:00 74 01/19/18 03:31 Nasal Cannula 01/19/18 03:30 75 18 100 Nasal Cannula 2.0 28 01/19/18 00:00 98.5 67 19 92/54 95 Nasal Cannula 2.0 98.5 01/19/18 00:00 72 Labs Laboratory Tests Test 01/19/18 08:45 White Blood Count 7.2 K/UL (4.8-10.8) Red Blood Count 4.27 M/UL (4.20-5.40) Hemoglobin 11.4 G/DL (12.0-16.0) L Hematocrit 35.5 % (37.0-47.0) L Mean Corpuscular Volume 83 FL (80-99) Mean Corpuscular Hemoglobin 26.6 PG (27.0-31.0) L Mean Corpuscular Hemoglobin Concent 32.0 G/DL (32.0-36.0) Red Cell Distribution Width 16.8 % (11.6-14.8) H Platelet Count 233 K/UL (150-450) Mean Platelet Volume 8.0 FL (6.5-10.1) Neutrophils (%) (Auto) 62.1 % (45.0-75.0) Lymphocytes (%) (Auto) 22.5 % (20.0-45.0) Monocytes (%) (Auto) 10.8 % (1.0-10.0) H Eosinophils (%) (Auto) 3.4 % (0.0-3.0) H Basophils (%) (Auto) 1.2 % (0.0-2.0) Sodium Level 140 MMOL/L (136-145) Potassium Level 3.8 MMOL/L (3.5-5.1) Chloride Level 103 MMOL/L (98-107) Carbon Dioxide Level 34 MMOL/L (21-32) H Anion Gap 3 mmol/L (5-15) L Blood Urea Nitrogen 9 mg/dL (7-18) Creatinine 0.8 MG/DL (0.55-1.30) Estimat Glomerular Filtration Rate mL/min (>60) Glucose Level 92 MG/DL (74-106) Calcium Level 8.8 MG/DL (8.5-10.1) Total Bilirubin 0.3 MG/DL (0.2-1.0) Aspartate Amino Transf (AST/SGOT) 24 U/L (15-37) Alanine Aminotransferase (ALT/SGPT) 25 U/L (12-78) Alkaline Phosphatase 124 U/L (46-116) H Troponin I 0.030 ng/mL (0.000-0.056) Total Protein 5.5 G/DL (6.4-8.2) L Albumin 2.3 G/DL (3.4-5.0) L Globulin 3.2 g/dL Albumin/Globulin Ratio 0.7 (1.0-2.7) L Medications Current Medications Medications (Trade) Dose Ordered Sig/Wiliam Route PRN Reason Start Time Stop Time Status Last Admin Dose Admin Acetaminophen/ Hydrocodone Bitart ([place] 5/325) 1 tab Q4H PRN ORAL Moderate Pain (Pain Scale 4-6) 01/17/18 12:15 01/24/18 12:14 01/17/18 15:38 Acetaminophen/ Hydrocodone Bitart ([place] 7.5/325) 1 tab Q4H PRN ORAL Severe Pain (Pain Scale 7-10) 01/17/18 12:15 01/24/18 12:14 01/18/18 18:18 Albuterol/ Ipratropium (Albuterol/ Ipratropium) 3 ml Q4H PRN HHN Shortness of Breath 01/17/18 13:30 01/22/18 13:29 Albuterol/ Ipratropium (Albuterol/ Ipratropium) 3 ml Q6HRT HHN 01/17/18 19:00 01/22/18 18:59 01/19/18 18:50 Atorvastatin Calcium (Lipitor) 20 mg BEDTIME ORAL 01/17/18 21:00 02/16/18 20:59 01/19/18 20:14 Benzonatate (Tessalon Perles) 100 mg THREE TIMES A DAY ORAL 01/17/18 18:00 02/16/18 17:59 01/19/18 17:03 Chlorhexidine Gluconate (Zeinab-Hex 2%) 1 applic DAILY@2000 TOPIC 01/20/18 20:00 02/19/18 19:59 Clonazepam (KlonoPIN) 1 mg BEDTIME ORAL 01/17/18 21:00 01/24/18 20:59 01/19/18 20:16 Clopidogrel Bisulfate (Plavix) 75 mg DAILY ORAL 01/17/18 09:00 02/16/18 08:59 01/19/18 08:38 Dextrose (Dextrose 50%) STAT PRN IV Hypoglycemia 01/17/18 04:15 02/16/18 04:14 Docusate Sodium (Colace) 100 mg Q12HR ORAL 01/19/18 22:00 02/18/18 21:59 01/19/18 22:20 Duloxetine HCl (Cymbalta) 30 mg DAILY ORAL 01/17/18 09:00 02/16/18 08:59 01/19/18 08:38 Ferrous Sulfate (Feosol) 325 mg DAILY ORAL 01/17/18 09:00 02/16/18 08:59 01/19/18 08:38 Furosemide (Lasix) 40 mg EVERY 12 HOURS IV 01/18/18 21:00 02/17/18 20:59 01/19/18 20:16 Guaifenesin (Mucinex ER) 600 mg TWICE A DAY ORAL 01/17/18 13:30 02/16/18 13:29 01/19/18 17:03 Guaifenesin (Robitussin) 200 mg Q4H PRN ORAL For Cough 01/17/18 13:30 02/16/18 13:29 Heparin Sodium (Porcine) (Heparin 5000 units/ml) 5,000 units EVERY 12 HOURS SUBQ 01/17/18 09:00 02/16/18 08:59 01/19/18 20:18 Heparin Sodium/ Sodium Chloride (Heparin 2000 units/Ns 1000ml premix) 2,000 unit ONCE PRN INJ PICC line placement 01/20/18 08:00 01/20/18 23:59 Hydromorphone HCl (Dilaudid) 0.5 mg EVERY 4 HOURS PRN IVP SEVERE BREAKTHROUGH PAIN 01/17/18 12:45 01/24/18 04:14 Irbesartan (Avapro) 75 mg DAILY ORAL 01/18/18 09:00 02/17/18 08:59 01/19/18 08:39 Levofloxacin 100 ml @ 100 mls/hr Q24H IVPB 01/20/18 09:00 01/27/18 08:59 Lidocaine HCl (Xylocaine 1% 30ml) 30 ml ONCE PRN INJ PICC line placement 01/20/18 08:00 01/20/18 23:59 Memantine (Namenda) 10 mg Q12HR ORAL 01/17/18 10:00 02/16/18 09:59 01/19/18 20:16 Nystatin (Nystop Powder) 1 applic THREE TIMES A DAY TOPIC 01/17/18 16:00 02/16/18 15:59 01/19/18 17:03 Pantoprazole (Protonix) 40 mg EVERY 12 HOURS IVP 01/17/18 13:30 02/16/18 13:29 01/19/18 20:13 Polyethylene Glycol (Miralax) 17 gm DAILY PRN ORAL Constipation 01/19/18 22:00 02/18/18 21:59 Potassium Chloride (K-Dur) 10 meq TWICE A DAY ORAL 01/18/18 18:00 02/17/18 17:59 01/19/18 17:03 Ramelteon (Rozerem) 8 mg QHS ORAL 01/17/18 21:00 02/16/18 20:59 01/19/18 20:14 Vancomycin HCl (Vanco rx to dose) 1 ea DAILY PRN MISC Per rx protocol 01/17/18 15:45 02/16/18 15:44 Vancomycin HCl 1 gm/Dextrose 275 ml @ 183.708 mls/hr Q24H IVPB 01/18/18 17:00 01/23/18 23:59 01/19/18 17:03 Problems: Jarek Kemp M.D. Jan 19, 2018 22:25
--- NOTE | 2018-01-19 22:25 | General Progress Note ---
Subjective Date patient seen: Jan 19, 2018 Neurologic/Psychiatric: Reports: anxiety, depressed Allergies: Coded Allergies: CLINDAMYCIN (Verified Allergy, Unknown, 01/16/18) PENICILLINS (Verified Allergy, Unknown, 01/16/18) PHENYTOIN (Verified Allergy, Unknown, 01/16/18) Objective Last 24 Hour Vital Signs Date Time Temp Pulse Resp B/P (MAP) Pulse Ox O2 Delivery O2 Flow Rate FiO2 01/19/18 19:01 68 18 99 Nasal Cannula 2.0 28 01/19/18 18:50 98 Nasal Cannula 2.0 28 01/19/18 18:50 Nasal Cannula 2.0 28 01/19/18 18:50 67 18 98 Nasal Cannula 2.0 28 01/19/18 16:00 98.1 86 19 109/71 95 Nasal Cannula 2.0 98.1 01/19/18 16:00 70 01/19/18 12:00 97.0 68 21 94/46 98 Nasal Cannula 2.0 97.0 01/19/18 12:00 71 01/19/18 11:40 77 18 99 Nasal Cannula 2.0 28 01/19/18 11:34 28 01/19/18 11:33 69 98 Nasal Cannula 2.0 28 01/19/18 08:39 108/69 01/19/18 08:00 97.9 72 22 108/69 98 Nasal Cannula 2.0 97.9 01/19/18 08:00 71 01/19/18 07:06 Nasal Cannula 2.0 28 01/19/18 07:06 98 Nasal Cannula 2.0 28 01/19/18 06:58 69 18 100 Nasal Cannula 2.0 28 01/19/18 06:48 28 01/19/18 06:47 68 18 99 Nasal Cannula 2.0 28 01/19/18 04:00 98.6 76 19 109/57 94 Nasal Cannula 2.0 98.6 01/19/18 04:00 74 01/19/18 03:31 Nasal Cannula 01/19/18 03:30 75 18 100 Nasal Cannula 2.0 28 01/19/18 00:00 98.5 67 19 92/54 95 Nasal Cannula 2.0 98.5 01/19/18 00:00 72 Intake and Output 01/18/18 01/19/18 19:00 07:00 Intake Total 425.000 ml 360 ml Balance 425.000 ml 360 ml Intake Oral 360 ml IV Total 425.000 ml # Voids 2 3 Laboratory Tests 01/19/18 08:45: White Blood Count 7.2, Red Blood Count 4.27, Hemoglobin 11.4L, Hematocrit 35.5L , Mean Corpuscular Volume 83, Mean Corpuscular Hemoglobin 26.6L, Mean Corpuscular Hemoglobin Concent 32.0, Red Cell Distribution Width 16.8H, Platelet Count 233, Mean Platelet Volume 8.0, Neutrophils (%) (Auto) 62.1, Lymphocytes (%) (Auto) 22.5, Monocytes (%) (Auto) 10.8H, Eosinophils (%) (Auto) 3.4H, Basophils (%) (Auto) 1.2, Sodium Level 140, Potassium Level 3.8, Chloride Level 103, Carbon Dioxide Level 34H, Anion Gap 3L, Blood Urea Nitrogen 9, Creatinine 0.8, Estimat Glomerular Filtration Rate , Glucose Level 92, Calcium Level 8.8, Total Bilirubin 0.3, Aspartate Amino Transf (AST/SGOT) 24, Alanine Aminotransferase (ALT/SGPT) 25, Alkaline Phosphatase 124H, Troponin I 0.030, Total Protein 5.5L, Albumin 2.3L, Globulin 3.2, Albumin/Globulin Ratio 0.7L Height (Feet): 5 Height (Inches): 0.00 Weight (Pounds): 242 General Appearance: no apparent distress, alert Neurologic: alert, oriented x 3, responsive Jarek Kemp M.D. Jan 19, 2018 22:25
[2018-01-20] VITALS (7 sets, daily range): BP systolic 100–126; BP diastolic 40–69
--- NOTE | 2018-01-20 00:45 | Consultation ---
DATE OF CONSULTATION: 01/18/2018 NOTE: POOR AUDIO HEMATOLOGY/ONCOLOGY CONSULTATION CONSULTING PHYSICIAN: Abraham Snyder M.D. REQUESTING PHYSICIAN: Yolanda Saez M.D. REASON FOR CONSULTATION: Evaluation of anemia. IDENTIFICATION DATA: Dear Dr. Yolanda Saez, The patient is a [place]-speaking 77-year-old female with past medical history significant for morbid obesity, chronic diastolic heart failure, hypertension, probably obstructive sleep apnea, small bowel obstruction, and history of breast cancer, status post lumpectomy and mastectomy, at this time presents with shortness of breath and obesity, worsening over the past several weeks. She has been seen by Infectious Disease Service and pulmonary team. She is also having shortness of breath, which has worsened again, multiple prior abdominal surgeries, multiple medications, and healing problems, was in the ICU for approximately a month also seen by Surgical Service and primary team, Dr. Flores and Dr. Guerrero. Hematology/Oncology Service was consulted for further evaluation and treatment as well as given history of malignancy. PAST MEDICAL HISTORY: As noted above. ALLERGIES: Clindamycin, penicillin, and phenytoin. SOCIAL HISTORY: No alcohol, tobacco, or illicit drug use. . FAMILY HISTORY: Noncontributory. REVIEW OF SYSTEMS: CONSTITUTIONAL: No fevers, chills, or night sweats. SKIN: No rashes, bumps, or itching. HEENT: No headache, hearing or vision changes. BREASTS: No lumps, pain, or discharge. PULMONARY: No cough, sputum, or shortness of breath. GASTROINTESTINAL: No nausea, vomiting, or diarrhea. GENITOURINARY: No dysuria, frequency, or urgency. MUSCULOSKELETAL: No joint swelling, muscle pain, or trauma. PHYSICAL EXAMINATION: VITAL SIGNS: Reviewed. GENERAL: No distress. PULMONARY: Decreased breath sounds. CARDIOVASCULAR: Regular rate. No S3 or S4. ABDOMEN: Soft, nontender, and nondistended. EXTREMITIES: No cyanosis, swelling, or edema noted. LABORATORY AND DIAGNOSTIC DATA: WBC 6.6, hemoglobin 10.6, hematocrit 34, and platelet count ,000. ASSESSMENT AND RECOMMENDATIONS: 1. Breast cancer, status post mastectomy and lumpectomy, at this time, no evidence of recurrence. Continue to closely monitor. The patient has been seen by Dr. Wiliam Snyder in the past as an outpatient closely evaluate. Closely continue monitoring as needed. Mammograms every two years. 2. Anemia due to underlying chronic disease. Also, hemodilutional component likely present. 3. Multiple abdominal surgeries history in the past. 4. Mild superficial panniculitis. No surgery intervention necessary as per surgical team. 5. Morbid obesity. Recommend weight loss. 6. Hypokalemia. Replete potassium with primary team. I appreciate the consultation. Abraham Snyder M.D. DR: Litzy JOB#: [id number] CC:
[2018-01-20] MEDS: Albuterol/Ipratropium 3ml neb HHN SCH ×4 (07:17→23:40)
[2018-01-20 07:59] LABS: BASOPHILS % (AUTO) 1.4 % (0.0-2.0); EOSINOPHILS % (AUTO) 4.3 % (0.0-3.0); HEMATOCRIT 36.8 % (37.0-47.0); HEMOGLOBIN 11.9 G/DL (12.0-16.0); LYMPHOCYTES % (AUTO) 18.3 % (20.0-45.0); MEAN CORPUSCULAR VOLUME 83 FL (80-99); MONOCYTES % (AUTO) 10.1 % (1.0-10.0); NEUTROPHILS % (AUTO) 65.9 % (45.0-75.0); PLATELET COUNT 224 K/UL (150-450); RED BLOOD COUNT 4.44 M/UL (4.20-5.40); RED CELL DISTRIBUTION WIDTH 16.6 % (11.6-14.8); WHITE BLOOD COUNT 6.6 K/UL (4.8-10.8)
[2018-01-20] MEDS ORDERED: Heparin 2000 units/Ns 1000ml INJ PRN (08:00)
[2018-01-20] MEDS ORDERED: Lidocaine 1% Plain 30 ml INJ PRN (08:00)
[2018-01-20 08:20] LABS: ALANINE AMINOTRANSFERASE 19 U/L (12-78); ALBUMIN 2.4 G/DL (3.4-5.0); ALBUMIN/GLOBULIN RATIO 0.8 (1.0-2.7); ALKALINE PHOSPHATASE 123 U/L (46-116); ANION GAP 2 mmol/L (5-15); ASPARTATE AMINO TRANSFERASE 17 U/L (15-37); BILIRUBIN,TOTAL 0.3 MG/DL (0.2-1.0); BLOOD UREA NITROGEN 10 mg/dL (7-18); CALCIUM 9.3 MG/DL (8.5-10.1); CARBON DIOXIDE 38 MMOL/L (21-32); CHLORIDE 100 MMOL/L (98-107); CREATININE 0.9 MG/DL (0.55-1.30); POTASSIUM 3.4 MMOL/L (3.5-5.1); SODIUM 140 MMOL/L (136-145)
[2018-01-20] MEDS: DULoxetine 30mg cap ORAL SCH ×2 (09:00→09:41)
[2018-01-20] MEDS: Memantine 10mg tab ORAL SCH ×3 (09:00→23:39)
[2018-01-20] MEDS: guaiFENesin ER 600mg tab ORAL SCH ×2 (09:40→19:23)
[2018-01-20] MEDS: Nystatin Powder 100,000 units/gm 15gm TOPIC SCH ×3 (09:41→23:45)
[2018-01-20] MEDS: Pantoprazole Inj IVP SCH (09:41)
[2018-01-20] MEDS: Docusate 100mg cap ORAL SCH ×2 (09:41→23:39)
[2018-01-20] MEDS: Heparin 5000 units/ml inj SUBQ SCH ×2 (09:42→23:45)
[2018-01-20] MEDS: Benzonatate 100mg Perles ORAL SCH ×3 (11:06→19:23)
--- NOTE | 2018-01-20 11:27 | General Surgery Progress Note ---
General Surgery-Progress Note Subjective Additional Comments no acute events. afebrile, labs okay. Objective Last 24 Hour Vital Signs Date Time Temp Pulse Resp B/P (MAP) Pulse Ox O2 Delivery O2 Flow Rate FiO2 01/20/18 09:40 126/56 01/20/18 08:00 97.5 68 20 126/56 97 Nasal Cannula 2.0 97.5 01/20/18 07:20 70 16 100 Nasal Cannula 2.0 28 01/20/18 07:20 68 16 100 Nasal Cannula 2.0 28 01/20/18 07:08 98 Nasal Cannula 2.0 28 01/20/18 07:08 64 16 98 Nasal Cannula 2.0 28 01/20/18 07:08 Nasal Cannula 2.0 28 01/20/18 04:00 98.8 73 20 104/48 94 Nasal Cannula 2.0 98.8 01/20/18 04:00 69 01/20/18 00:00 71 01/20/18 00:00 99.0 59 20 105/48 94 Nasal Cannula 2.0 99.0 01/19/18 23:24 72 18 99 Nasal Cannula 2.0 28 01/19/18 23:14 70 16 97 Nasal Cannula 2.0 28 01/19/18 20:00 99.0 78 20 113/56 95 Nasal Cannula 2.0 99.0 01/19/18 19:01 68 18 99 Nasal Cannula 2.0 28 01/19/18 18:50 98 Nasal Cannula 2.0 28 01/19/18 18:50 Nasal Cannula 2.0 28 01/19/18 18:50 67 18 98 Nasal Cannula 2.0 28 01/19/18 16:00 98.1 86 19 109/71 95 Nasal Cannula 2.0 98.1 01/19/18 16:00 70 01/19/18 12:00 97.0 68 21 94/46 98 Nasal Cannula 2.0 97.0 01/19/18 12:00 71 01/19/18 11:40 77 18 99 Nasal Cannula 2.0 28 01/19/18 11:34 28 01/19/18 11:33 69 98 Nasal Cannula 2.0 28 I&O Intake and Output 01/19/18 01/20/18 19:00 07:00 Intake Total 1725.000 ml 200 ml Output Total 1200 ml 1500 ml Balance 525.000 ml -1300 ml Intake Oral 1300 ml 200 ml IV Total 425.000 ml Output Urine Total 1200 ml 1500 ml # Voids 8 Wound: clean Cardiovascular: RSR Respiratory: clear Abdomen: soft, other - large hernia stable, panniculitis stable / dependant edema. Extremities: no tenderness Laboratory Tests Test 01/20/18 06:40 White Blood Count 6.6 K/UL (4.8-10.8) Red Blood Count 4.44 M/UL (4.20-5.40) Hemoglobin 11.9 G/DL (12.0-16.0) L Hematocrit 36.8 % (37.0-47.0) L Mean Corpuscular Volume 83 FL (80-99) Mean Corpuscular Hemoglobin 26.7 PG (27.0-31.0) L Mean Corpuscular Hemoglobin Concent 32.3 G/DL (32.0-36.0) Red Cell Distribution Width 16.6 % (11.6-14.8) H Platelet Count 224 K/UL (150-450) Mean Platelet Volume 7.8 FL (6.5-10.1) Neutrophils (%) (Auto) 65.9 % (45.0-75.0) Lymphocytes (%) (Auto) 18.3 % (20.0-45.0) L Monocytes (%) (Auto) 10.1 % (1.0-10.0) H Eosinophils (%) (Auto) 4.3 % (0.0-3.0) H Basophils (%) (Auto) 1.4 % (0.0-2.0) Erythrocyte Sedimentation Rate 21 MM/HR (0-30) Sodium Level 140 MMOL/L (136-145) Potassium Level 3.4 MMOL/L (3.5-5.1) L Chloride Level 100 MMOL/L (98-107) Carbon Dioxide Level 38 MMOL/L (21-32) H Anion Gap 2 mmol/L (5-15) L Blood Urea Nitrogen 10 mg/dL (7-18) Creatinine 0.9 MG/DL (0.55-1.30) Estimat Glomerular Filtration Rate mL/min (>60) Glucose Level 98 MG/DL (74-106) Calcium Level 9.3 MG/DL (8.5-10.1) Total Bilirubin 0.3 MG/DL (0.2-1.0) Aspartate Amino Transf (AST/SGOT) 17 U/L (15-37) Alanine Aminotransferase (ALT/SGPT) 19 U/L (12-78) Alkaline Phosphatase 123 U/L (46-116) H C-Reactive Protein, Quantitative 0.8 mg/dL (0.00-0.90) Total Protein 5.6 G/DL (6.4-8.2) L Albumin 2.4 G/DL (3.4-5.0) L Globulin 3.2 g/dL Albumin/Globulin Ratio 0.8 (1.0-2.7) L Plan Problems: (1) Panniculitis Assessment & Plan: 77F with multiple prior abdominal surgeries for hernia with prior complications and recurrence. Has large pannus with mild superficial panniculitis. currently admitted for respiratory problems and UTI. abdominal discomfort minimal. no signs or symptoms of obstruction. hernia large and abdomen benign except for chronic issues such as pannus. IMPRESSION: Massive ventral hernia with the nearly all of the bowel as well as portions of the liver, spleen and pancreas herniating through the defect and located within the large pannus. Dependent edema and skin thickening on the inferior portions of the pannus. Correlate clinically to exclude cellulitis. No well-defined/drainable fluid collection identified at this time. -no surgical intervention necessary. -As for wound care, keep area between pannus and thigh clean and dry. -would NOT recommend hernia surgery unless emergency (i.e. not reducible or strangulated) as patient is very high risk. he has had multiple prior failed attempts at ventral hernia repair and some associated with significant complications and morbidity. -pannus likely dependant edema as anticipated. thank you for this consult. will follow with Adriano Jo Jan 20, 2018 11:26
--- NOTE | 2018-01-20 13:50 | Pulmonology Progress Note ---
Assessment/Plan Assessment/Plan ASSESSMENT: The patient is a morbidly obese 77-year-old female with history of congestive heart failure with diastolic dysfunction, reactive airway disease, multiple abdominal surgeries, panniculitis, respiratory insufficiency secondary to the breast cancer status post lumpectomy and mastectomy in the past, and obstructive sleep apnea noncompliant with therapy, presenting with dyspnea in the setting of abdominal discomfort and urinary tract infection. There is no evidence of pneumonia on her plain film, but she is being broadly covered for her abdominal wound and urinary tract infection as well as common respiratory pathogens. I suspect she has a component of decompensated heart failure as well. The patient has a CT abdomen and pelvis ordered. I have expanded it to include the chest to further evaluate the parenchymal changes. PROBLEM LIST: 1. Dyspnea and hypoxemia likely secondary to intraabdominal process and a component of pulmonary edema. 2. Reactive airway disease without evidence of exacerbation. 3. Congestive heart failure with diastolic dysfunction and acute decompensated heart failure. 4. History of abdominal wall cellulitis, panniculitis, and multiple abdominal surgeries. 5. GNR Urinary tract infection. 6. Morbid obesity. 7. Obstructive sleep apnea and likely obesity hypoventilation, not currently on CPAP therapy. 8. Protein-calorie malnutrition. 9. Urinary tract infection. 10. Hypertension. 11. Gastroesophageal reflux disease. 12. History of incarcerated hernia repair in the past. TREATMENT PLAN: 1. Optimize pulmonary hygiene/mobilize as tolerated. 2. Titrate down FiO2 to keep saturations greater than 90%. 3. Continue broad-spectrum antimicrobial therapy per Infectious Disease (Levaquin, vancomycin) . 4. Continue round the clock and p.r.n. bronchodilators. 5. Mucinex and p.r.n. Robitussin. 6. Monitor volumes, continue IV lasix as able. 7. F/U surgical recs 8. DVT prophylaxis, heparin subcutaneous. 9. Diet per EVP STRATEGY with STRICT aspiration precautions. 10. The patient is a Full Code. 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 [employer], on RA to 2L No change in dyspnea, no cough, no wheezing, no F/C, abd complaints unchanged CT reviewed Objective Last 24 Hour Vital Signs Date Time Temp Pulse Resp B/P (MAP) Pulse Ox O2 Delivery O2 Flow Rate FiO2 01/20/18 13:16 68 16 100 Nasal Cannula 2.0 28 01/20/18 13:06 64 16 Nasal Cannula 2.0 28 01/20/18 12:00 97.7 67 20 113/45 97 Nasal Cannula 2.0 97.7 01/20/18 09:40 126/56 01/20/18 08:00 97.5 68 20 126/56 97 Nasal Cannula 2.0 97.5 01/20/18 07:20 70 16 100 Nasal Cannula 2.0 28 01/20/18 07:20 68 16 100 Nasal Cannula 2.0 28 01/20/18 07:08 98 Nasal Cannula 2.0 28 01/20/18 07:08 64 16 98 Nasal Cannula 2.0 28 01/20/18 07:08 Nasal Cannula 2.0 28 01/20/18 04:00 98.8 73 20 104/48 94 Nasal Cannula 2.0 98.8 01/20/18 04:00 69 01/20/18 00:00 71 01/20/18 00:00 99.0 59 20 105/48 94 Nasal Cannula 2.0 99.0 01/19/18 23:24 72 18 99 Nasal Cannula 2.0 28 01/19/18 23:14 70 16 97 Nasal Cannula 2.0 28 01/19/18 20:00 99.0 78 20 113/56 95 Nasal Cannula 2.0 99.0 01/19/18 19:01 68 18 99 Nasal Cannula 2.0 28 01/19/18 18:50 98 Nasal Cannula 2.0 28 01/19/18 18:50 Nasal Cannula 2.0 28 01/19/18 18:50 67 18 98 Nasal Cannula 2.0 28 01/19/18 16:00 98.1 86 19 109/71 95 Nasal Cannula 2.0 98.1 01/19/18 16:00 70 Intake and Output 01/19/18 01/20/18 19:00 07:00 Intake Total 1725.000 ml 200 ml Output Total 1200 ml 1500 ml Balance 525.000 ml -1300 ml Intake Oral 1300 ml 200 ml IV Total 425.000 ml Output Urine Total 1200 ml 1500 ml # Voids 8 General Appearance: no acute distress, other - morbidly obese female HEENT: normocephalic, atraumatic, anicteric, mucous membranes moist Respiratory/Chest: chest wall non-tender, lungs clear, normal breath sounds - decreased at the bases Cardiovascular: normal peripheral pulses, normal rate, regular rhythm Abdomen: normal bowel sounds, soft, non tender, no organomegaly, non distended , no mass, other - panniculitis unchanged Extremities: no cyanosis, no clubbing, no edema Laboratory Tests 01/20/18 06:40: White Blood Count 6.6, Red Blood Count 4.44, Hemoglobin 11.9L, Hematocrit 36.8L , Mean Corpuscular Volume 83, Mean Corpuscular Hemoglobin 26.7L, Mean Corpuscular Hemoglobin Concent 32.3, Red Cell Distribution Width 16.6H, Platelet Count 224, Mean Platelet Volume 7.8, Neutrophils (%) (Auto) 65.9, Lymphocytes (%) (Auto) 18.3L, Monocytes (%) (Auto) 10.1H, Eosinophils (%) (Auto ) 4.3H, Basophils (%) (Auto) 1.4, Erythrocyte Sedimentation Rate 21, Sodium Level 140, Potassium Level 3.4L, Chloride Level 100, Carbon Dioxide Level 38H, Anion Gap 2L, Blood Urea Nitrogen 10, Creatinine 0.9, Estimat Glomerular Filtration Rate , Glucose Level 98, Calcium Level 9.3, Total Bilirubin 0.3, Aspartate Amino Transf (AST/SGOT) 17, Alanine Aminotransferase (ALT/SGPT) 19, Alkaline Phosphatase 123H, C-Reactive Protein, Quantitative 0.8, Total Protein 5.6L, Albumin 2.4L, Globulin 3.2, Albumin/Globulin Ratio 0.8L Current Medications Medications (Trade) Dose Ordered Sig/Wiliam Route PRN Reason Start Time Stop Time Status Last Admin Dose Admin Acetaminophen/ Hydrocodone Bitart (Pender 5/325) 1 tab Q4H PRN ORAL Moderate Pain (Pain Scale 4-6) 01/17/18 12:15 01/24/18 12:14 01/17/18 15:38 Acetaminophen/ Hydrocodone Bitart (Pender 7.5/325) 1 tab Q4H PRN ORAL Severe Pain (Pain Scale 7-10) 01/17/18 12:15 01/24/18 12:14 01/18/18 18:18 Albuterol/ Ipratropium (Albuterol/ Ipratropium) 3 ml Q4H PRN HHN Shortness of Breath 01/17/18 13:30 01/22/18 13:29 Albuterol/ Ipratropium (Albuterol/ Ipratropium) 3 ml Q6HRT HHN 01/17/18 19:00 01/22/18 18:59 01/20/18 13:12 Atorvastatin Calcium (Lipitor) 20 mg BEDTIME ORAL 01/17/18 21:00 02/16/18 20:59 01/19/18 20:14 Benzonatate (Tessalon Perles) 100 mg THREE TIMES A DAY ORAL 01/17/18 18:00 02/16/18 17:59 01/20/18 11:06 Chlorhexidine Gluconate (Zeinab-Hex 2%) 1 applic DAILY@2000 TOPIC 01/20/18 20:00 02/19/18 19:59 Clonazepam (KlonoPIN) 1 mg BEDTIME ORAL 01/17/18 21:00 01/24/18 20:59 01/19/18 20:16 Clopidogrel Bisulfate (Plavix) 75 mg DAILY ORAL 01/17/18 09:00 02/16/18 08:59 01/20/18 09:39 Dextrose (Dextrose 50%) STAT PRN IV Hypoglycemia 01/17/18 04:15 02/16/18 04:14 Docusate Sodium (Colace) 100 mg Q12HR ORAL 01/19/18 22:00 02/18/18 21:59 01/20/18 09:41 Duloxetine HCl (Cymbalta) 30 mg DAILY ORAL 01/17/18 09:00 02/16/18 08:59 01/19/18 08:38 Ferrous Sulfate (Feosol) 325 mg DAILY ORAL 01/17/18 09:00 02/16/18 08:59 01/20/18 09:41 Furosemide (Lasix) 40 mg EVERY 12 HOURS IV 01/18/18 21:00 02/17/18 20:59 01/20/18 09:40 Guaifenesin (Mucinex ER) 600 mg TWICE A DAY ORAL 01/17/18 13:30 02/16/18 13:29 01/20/18 09:40 Guaifenesin (Robitussin) 200 mg Q4H PRN ORAL For Cough 01/17/18 13:30 02/16/18 13:29 Heparin Sodium (Porcine) (Heparin 5000 units/ml) 5,000 units EVERY 12 HOURS SUBQ 01/17/18 09:00 02/16/18 08:59 01/20/18 09:42 Heparin Sodium/ Sodium Chloride (Heparin 2000 units/Ns 1000ml premix) 2,000 unit ONCE PRN INJ PICC line placement 01/20/18 08:00 01/20/18 23:59 Hydromorphone HCl (Dilaudid) 0.5 mg EVERY 4 HOURS PRN IVP SEVERE BREAKTHROUGH PAIN 01/17/18 12:45 01/24/18 04:14 Irbesartan (Avapro) 75 mg DAILY ORAL 01/18/18 09:00 02/17/18 08:59 01/20/18 09:40 Levofloxacin 100 ml @ 100 mls/hr Q24H IVPB 01/20/18 09:00 01/27/18 08:59 01/20/18 10:31 Lidocaine HCl (Xylocaine 1% 30ml) 30 ml ONCE PRN INJ PICC line placement 01/20/18 08:00 01/20/18 23:59 Memantine (Namenda) 10 mg Q12HR ORAL 01/17/18 10:00 02/16/18 09:59 01/19/18 20:16 Nystatin (Nystop Powder) 1 applic THREE TIMES A DAY TOPIC 01/17/18 16:00 02/16/18 15:59 01/20/18 09:41 Pantoprazole (Protonix) 40 mg EVERY 12 HOURS IVP 01/17/18 13:30 02/16/18 13:29 01/20/18 09:41 Polyethylene Glycol (Miralax) 17 gm DAILY PRN ORAL Constipation 01/19/18 22:00 02/18/18 21:59 01/20/18 09:39 Potassium Chloride (K-Dur) 10 meq TWICE A DAY ORAL 01/18/18 18:00 02/17/18 17:59 01/20/18 09:40 Ramelteon (Rozerem) 8 mg QHS ORAL 01/17/18 21:00 02/16/18 20:59 01/19/18 20:14 Vancomycin HCl (Vanco rx to dose) 1 ea DAILY PRN MISC Per rx protocol 01/17/18 15:45 02/16/18 15:44 Vancomycin HCl 1 gm/Dextrose 275 ml @ 183.708 mls/hr Q24H IVPB 01/18/18 17:00 01/23/18 23:59 01/19/18 17:03 LORENA HUBBARD M.D. Jan 20, 2018 13:49
[2018-01-20] MEDS ORDERED: Vancomycin 1 GM in D5W 275 ML IVPB SCH (17:00)
[2018-01-20] MEDS ORDERED: Norco 5mg/325mg tab ORAL PRN (17:45)
[2018-01-20] MEDS ORDERED: guaiFENesin 100mg/5ml Liq ud ORAL PRN (18:00)
[2018-01-20] MEDS ORDERED: Albuterol/Ipratropium 3ml neb HHN PRN (18:00)
[2018-01-20] MEDS ORDERED: Hydromorphone 0.5mg/0.5ml inj IVP PRN (18:00)
[2018-01-20] MEDS ORDERED: Miralax 17gm pkt ORAL PRN (18:00)
[2018-01-20] MEDS ORDERED: HYDROcodone/Acetamin 7.5/325 tab ORAL PRN (18:00)
--- NOTE | 2018-01-20 18:00 | Progress Note ---
DATE: 01/20/2018 SUBJECTIVE: The patient was in bed and sleep and appetite is adequate. Continues to have anxiety and stable on current medication. Low energy. Dysphoria. MENTAL STATUS EXAMINATION: Alert and oriented x3. Mood is dysphoric. Affect is constricted. Congruent mood. Thought process is concrete. Thought content, no suicidal or homicidal ideations. ASSESSMENT: 1. Major depressive disorder. 2. Anxiety disorder. PLAN: 1. We will continue Cymbalta 30 mg daily. 2. Klonopin 1 mg at bedtime. 3. We will continue to follow and readjust the medications. Jarek Kemp M.D. DR: DIONISIO JOB#: [id number] CC:
[2018-01-20] MEDS ORDERED: Vancomycin 1250mg/D5W 250ml 250 ML IVPB SCH (20:00)
[2018-01-20] MEDS: Dyna-Hex 2% Top Sol 2oz TOPIC SCH (20:00)
[2018-01-20] MEDS ORDERED: Dyna-Hex 2% Top Sol 2oz TOPIC SCH (20:00)
[2018-01-20] MEDS ORDERED: Ramelteon 8mg tab (Approved for Delirium use only) ORAL SCH (21:00)
[2018-01-20] MEDS ORDERED: Atorvastatin 20mg tab ORAL SCH (21:00)
--- NOTE | 2018-01-20 22:19 | General Progress Note ---
Assessment/Plan Problem List: (1) Acute on chronic diastolic (congestive) heart failure ICD Codes: I50.33 - Acute on chronic diastolic (congestive) heart failure SNOMED: 07031063, 554767883 (2) UTI (urinary tract infection) ICD Codes: N39.0 - Urinary tract infection, site not specified SNOMED: 09515200 (3) Panniculitis ICD Codes: M79.3 - Panniculitis, unspecified SNOMED: 73482686 (4) Abdominal wall cellulitis ICD Codes: L03.311 - Cellulitis of abdominal wall SNOMED: 03700520 (5) Morbid obesity ICD Codes: E66.01 - Morbid (severe) obesity due to excess calories SNOMED: 482251607, 45602407316708 (6) Probable MISSY (7) HTN (hypertension) ICD Codes: I10 - Essential (primary) hypertension SNOMED: 51451811 (8) Hypokalemia ICD Codes: E87.6 - Hypokalemia SNOMED: 50230288 (9) Hypomagnesemia ICD Codes: E83.42 - Hypomagnesemia SNOMED: 757187600 Status: stable Assessment/Plan Cards, Pulm, ID, gen surgery consulted - appreciate recs Cont IV vanco and levaquin per ID --> transition to bactrim + levaquin on d/c per ID CT c/a/p reviewed--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 Per surgery, no acute intervention indicated F/u urine culture--E. Coli and mixed gram positive org TTE reviewed--EF 45-50%, diastolic dysfcn Tn down trending, suspect leak BNP 1999 Cont lasix 40mg IV BID per cardiology Repeat BNP in AM Strict I/O's, daily weights Cont O2 and wean as tolerated Duonebs ATC and PRN Suction PRN Swallow eval Wound care Replete lytes Cont home meds Pain control, bowel regimen Supportive care PT/OT Home health ordered DC planning for tomorrow on oral antibiotics DVT Prophylaxis: SCD, HSQ Code Status: Full Hospital Classification Declaration: Based on this initial evaluation, and depending on the patient's clinical course, I anticipate that this patient will require hospitalization for 1-2 days for UTI, panniculitis/abd wall cellulitis, CHF and close respiratory/hemodynamic monitoring. Disposition: Once the patient is stable to leave the hospital, I anticipate the patient will likely be discharged to the following environment: home with HH vs SNF (pt declines SNF) I spent 38 minutes on this patient's case, and >50% was dedicated to counseling and/or care coordination. Discussed with patient/family, nursing staff, SW/CM, pulm, ID, gen surg regarding clinical status, treatment course, and disposition planning. D/w ID re abx. D/w surg re CT a/p results Time of note may not reflect time of encounter. Subjective Date patient seen: Jan 20, 2018 Time patient seen: 14:00 ROS Limited/Unobtainable: No Constitutional: Reports: weakness HEENT: Reports: no symptoms Cardiovascular: Reports: no symptoms Respiratory: Reports: no symptoms Gastrointestinal/Abdominal: Reports: abdominal pain Genitourinary: Reports: no symptoms Neurologic/Psychiatric: Reports: no symptoms Endocrine: Reports: no symptoms Hematologic/Lymphatic: Reports: no symptoms Allergies: Coded Allergies: CLINDAMYCIN (Verified Allergy, Unknown, 01/16/18) PENICILLINS (Verified Allergy, Unknown, 01/16/18) PHENYTOIN (Verified Allergy, Unknown, 01/16/18) Subjective No acute o/n events Afebrile, HDS Responding well to IV lasix Cont on IV abx per ID Denies f/c, n/v, d/c, chest pain, SOB. Abd discomfort stable Objective Last 24 Hour Vital Signs Date Time Temp Pulse Resp B/P (MAP) Pulse Ox O2 Delivery O2 Flow Rate FiO2 01/20/18 19:50 98.1 73 20 109/40 93 Room Air 98.1 69 01/20/18 18:56 80 16 100 Nasal Cannula 2.0 28 01/20/18 18:46 98 Nasal Cannula 2.0 28 01/20/18 18:46 Nasal Cannula 2.0 28 01/20/18 18:46 78 16 98 Nasal Cannula 2.0 28 01/20/18 15:58 97.5 75 18 100/68 93 97.5 01/20/18 13:16 68 16 100 Nasal Cannula 2.0 28 01/20/18 13:06 64 16 Nasal Cannula 2.0 28 01/20/18 12:00 69 01/20/18 12:00 97.7 67 20 113/45 97 Nasal Cannula 2.0 97.7 01/20/18 09:40 126/56 01/20/18 08:00 62 01/20/18 08:00 97.5 68 20 126/56 97 Nasal Cannula 2.0 97.5 01/20/18 07:20 70 16 100 Nasal Cannula 2.0 28 01/20/18 07:20 68 16 100 Nasal Cannula 2.0 28 01/20/18 07:08 98 Nasal Cannula 2.0 28 01/20/18 07:08 64 16 98 Nasal Cannula 2.0 28 01/20/18 07:08 Nasal Cannula 2.0 28 01/20/18 04:00 98.8 73 20 104/48 94 Nasal Cannula 2.0 98.8 01/20/18 04:00 69 01/20/18 00:00 71 01/20/18 00:00 99.0 59 20 105/48 94 Nasal Cannula 2.0 99.0 01/19/18 23:24 72 18 99 Nasal Cannula 2.0 28 01/19/18 23:14 70 16 97 Nasal Cannula 2.0 28 Intake and Output 01/19/18 01/20/18 19:00 07:00 Intake Total 1725.000 ml 200 ml Output Total 1200 ml 1500 ml Balance 525.000 ml -1300 ml Intake Oral 1300 ml 200 ml IV Total 425.000 ml Output Urine Total 1200 ml 1500 ml # Voids 8 Laboratory Tests 01/20/18 06:40: White Blood Count 6.6, Red Blood Count 4.44, Hemoglobin 11.9L, Hematocrit 36.8L , Mean Corpuscular Volume 83, Mean Corpuscular Hemoglobin 26.7L, Mean Corpuscular Hemoglobin Concent 32.3, Red Cell Distribution Width 16.6H, Platelet Count 224, Mean Platelet Volume 7.8, Neutrophils (%) (Auto) 65.9, Lymphocytes (%) (Auto) 18.3L, Monocytes (%) (Auto) 10.1H, Eosinophils (%) (Auto ) 4.3H, Basophils (%) (Auto) 1.4, Erythrocyte Sedimentation Rate 21, Sodium Level 140, Potassium Level 3.4L, Chloride Level 100, Carbon Dioxide Level 38H, Anion Gap 2L, Blood Urea Nitrogen 10, Creatinine 0.9, Estimat Glomerular Filtration Rate , Glucose Level 98, Calcium Level 9.3, Total Bilirubin 0.3, Aspartate Amino Transf (AST/SGOT) 17, Alanine Aminotransferase (ALT/SGPT) 19, Alkaline Phosphatase 123H, C-Reactive Protein, Quantitative 0.8, Total Protein 5.6L, Albumin 2.4L, Globulin 3.2, Albumin/Globulin Ratio 0.8L 01/20/18 16:20: Vancomycin Level Trough 10.6 Height (Feet): 5 Height (Inches): 0.00 Weight (Pounds): 241 Objective General: alert, cooperative, no distress, appears stated age Head: normocephalic, without obvious abnormality, atraumatic Eyes: conjunctivae/corneas clear. PERRL, EOM's intact Throat: lips, mucosa, and tongue normal. MMM Neck: supple, symmetrical, trachea midline, and no JVD Lungs: clear to auscultation bilaterally Heart: regular rate and rhythm, S1, S2 normal, no murmur, click, rub or gallop Abdomen: soft, obese abd, +large pannus, panniculitis around superficial lower left, prior surgical scars noted, no sig drainage noted Extremities: extremities normal, atraumatic, no cyanosis or edema Pulses: 2+ and symmetric Skin: skin color, texture, turgor normal; no rashes or lesions Neurologic: grossly normal, no focal deficits Yolanda Saez M.D. Jan 20, 2018 22:19
--- NOTE | 2018-01-20 22:46 | General Progress Note ---
Assessment/Plan Assessment/Plan 1. Breast cancer, status post mastectomy and lumpectomy, at this time, no evidence of recurrence. --> Continue to closely monitor. --> The patient has been seen by Dr. Wiliam Snyder in the past as an outpatient continue to closely evaluate. --> Closely continue monitoring as needed. Mammograms every two years. 2. Anemia due to underlying chronic disease. --> Also, hemodilutional component likely present. --> Transfuse if hemoglobin <7 3. Multiple abdominal surgeries history in the past. 4. Mild superficial panniculitis. No surgery intervention necessary as per surgical team. 5. Morbid obesity. Recommend weight loss. 6. Hypokalemia. Replete potassium with primary team. Subjective Date patient seen: Jan 19, 2018 Constitutional: Denies: no symptoms, chills, diaphoresis, fever, malaise, weakness, other HEENT: Denies: no symptoms, eye pain, blurred vision, tearing, double vision, ear pain, ear discharge, nose pain, nose congestion, throat pain, throat swelling, mouth pain, mouth swelling, other Cardiovascular: Denies: no symptoms, chest pain, edema, irregular heart rate, lightheadedness, palpitations, syncope, other Respiratory: Denies: no symptoms, cough, orthopnea, shortness of breath, SOB with excertion, SOB at rest, sputum, stridor, wheezing, other Gastrointestinal/Abdominal: Denies: no symptoms, abdomen distended, abdominal pain, black stools, tarry stools, blood in stool, constipated, diarrhea, difficulty swallowing, nausea, poor appetite, poor fluid intake, rectal bleeding , vomiting, other Genitourinary: Denies: no symptoms, burning, discharge, frequency, flank pain, hematuria, incontinence, pain, urgency, other Neurologic/Psychiatric: Denies: no symptoms, anxiety, depressed, emotional problems, headache, numbness, paresthesia, pre-existing deficit, seizure, tingling, tremors, weakness, other Hematologic/Lymphatic: Reports: anemia Allergies: Coded Allergies: CLINDAMYCIN (Verified Allergy, Unknown, 01/16/18) PENICILLINS (Verified Allergy, Unknown, 01/16/18) PHENYTOIN (Verified Allergy, Unknown, 01/16/18) Subjective Tired. H/H stable. No major events. Objective Last 24 Hour Vital Signs Date Time Temp Pulse Resp B/P (MAP) Pulse Ox O2 Delivery O2 Flow Rate FiO2 01/20/18 19:50 98.1 73 20 109/40 93 Room Air 98.1 69 01/20/18 18:56 80 16 100 Nasal Cannula 2.0 28 01/20/18 18:46 98 Nasal Cannula 2.0 28 01/20/18 18:46 Nasal Cannula 2.0 28 01/20/18 18:46 78 16 98 Nasal Cannula 2.0 28 01/20/18 15:58 97.5 75 18 100/68 93 97.5 01/20/18 13:16 68 16 100 Nasal Cannula 2.0 28 01/20/18 13:06 64 16 Nasal Cannula 2.0 28 01/20/18 12:00 69 01/20/18 12:00 97.7 67 20 113/45 97 Nasal Cannula 2.0 97.7 01/20/18 09:40 126/56 01/20/18 08:00 62 01/20/18 08:00 97.5 68 20 126/56 97 Nasal Cannula 2.0 97.5 01/20/18 07:20 70 16 100 Nasal Cannula 2.0 28 01/20/18 07:20 68 16 100 Nasal Cannula 2.0 28 01/20/18 07:08 98 Nasal Cannula 2.0 28 01/20/18 07:08 64 16 98 Nasal Cannula 2.0 28 01/20/18 07:08 Nasal Cannula 2.0 28 01/20/18 04:00 98.8 73 20 104/48 94 Nasal Cannula 2.0 98.8 01/20/18 04:00 69 01/20/18 00:00 71 01/20/18 00:00 99.0 59 20 105/48 94 Nasal Cannula 2.0 99.0 01/19/18 23:24 72 18 99 Nasal Cannula 2.0 28 01/19/18 23:14 70 16 97 Nasal Cannula 2.0 28 Intake and Output 01/19/18 01/20/18 19:00 07:00 Intake Total 1725.000 ml 200 ml Output Total 1200 ml 1500 ml Balance 525.000 ml -1300 ml Intake Oral 1300 ml 200 ml IV Total 425.000 ml Output Urine Total 1200 ml 1500 ml # Voids 8 Laboratory Tests 01/20/18 06:40: White Blood Count 6.6, Red Blood Count 4.44, Hemoglobin 11.9L, Hematocrit 36.8L , Mean Corpuscular Volume 83, Mean Corpuscular Hemoglobin 26.7L, Mean Corpuscular Hemoglobin Concent 32.3, Red Cell Distribution Width 16.6H, Platelet Count 224, Mean Platelet Volume 7.8, Neutrophils (%) (Auto) 65.9, Lymphocytes (%) (Auto) 18.3L, Monocytes (%) (Auto) 10.1H, Eosinophils (%) (Auto ) 4.3H, Basophils (%) (Auto) 1.4, Erythrocyte Sedimentation Rate 21, Sodium Level 140, Potassium Level 3.4L, Chloride Level 100, Carbon Dioxide Level 38H, Anion Gap 2L, Blood Urea Nitrogen 10, Creatinine 0.9, Estimat Glomerular Filtration Rate , Glucose Level 98, Calcium Level 9.3, Total Bilirubin 0.3, Aspartate Amino Transf (AST/SGOT) 17, Alanine Aminotransferase (ALT/SGPT) 19, Alkaline Phosphatase 123H, C-Reactive Protein, Quantitative 0.8, Total Protein 5.6L, Albumin 2.4L, Globulin 3.2, Albumin/Globulin Ratio 0.8L 01/20/18 16:20: Vancomycin Level Trough 10.6 Height (Feet): 5 Height (Inches): 0.00 Weight (Pounds): 241 General Appearance: lethargic Respiratory/Chest: decreased breath sounds Abdomen: soft Abraham Snyder MD Jan 20, 2018 22:46
--- NOTE | 2018-01-20 22:47 | General Progress Note ---
Assessment/Plan Assessment/Plan 1. Breast cancer, status post mastectomy and lumpectomy, at this time, no evidence of recurrence. --> Continue to closely monitor. --> The patient has been seen by Dr. Wiliam Snyder in the past as an outpatient continue to closely evaluate. --> Closely continue monitoring as needed. Mammograms every two years. 2. Anemia due to underlying chronic disease. --> Also, hemodilutional component likely present. --> Transfuse if hemoglobin <7 3. Multiple abdominal surgeries history in the past. 4. Mild superficial panniculitis. --> No surgery intervention necessary as per surgical team. 5. Morbid obesity. --> Recommend weight loss. 6. Hypokalemia. --> Replete potassium with primary team. Subjective Date patient seen: Jan 20, 2018 Constitutional: Denies: no symptoms, chills, diaphoresis, fever, malaise, weakness, other HEENT: Denies: no symptoms, eye pain, blurred vision, tearing, double vision, ear pain, ear discharge, nose pain, nose congestion, throat pain, throat swelling, mouth pain, mouth swelling, other Cardiovascular: Denies: no symptoms, chest pain, edema, irregular heart rate, lightheadedness, palpitations, syncope, other Respiratory: Denies: no symptoms, cough, orthopnea, shortness of breath, SOB with excertion, SOB at rest, sputum, stridor, wheezing, other Gastrointestinal/Abdominal: Denies: no symptoms, abdomen distended, abdominal pain, black stools, tarry stools, blood in stool, constipated, diarrhea, difficulty swallowing, nausea, poor appetite, poor fluid intake, rectal bleeding , vomiting, other Genitourinary: Denies: no symptoms, burning, discharge, frequency, flank pain, hematuria, incontinence, pain, urgency, other Neurologic/Psychiatric: Denies: no symptoms, anxiety, depressed, emotional problems, headache, numbness, paresthesia, pre-existing deficit, seizure, tingling, tremors, weakness, other Allergies: Coded Allergies: CLINDAMYCIN (Verified Allergy, Unknown, 01/16/18) PENICILLINS (Verified Allergy, Unknown, 01/16/18) PHENYTOIN (Verified Allergy, Unknown, 01/16/18) Subjective Resting in bed. No fever or chills. Objective Last 24 Hour Vital Signs Date Time Temp Pulse Resp B/P (MAP) Pulse Ox O2 Delivery O2 Flow Rate FiO2 01/20/18 19:50 98.1 73 20 109/40 93 Room Air 98.1 69 01/20/18 18:56 80 16 100 Nasal Cannula 2.0 28 01/20/18 18:46 98 Nasal Cannula 2.0 28 01/20/18 18:46 Nasal Cannula 2.0 28 01/20/18 18:46 78 16 98 Nasal Cannula 2.0 28 01/20/18 15:58 97.5 75 18 100/68 93 97.5 01/20/18 13:16 68 16 100 Nasal Cannula 2.0 28 01/20/18 13:06 64 16 Nasal Cannula 2.0 28 01/20/18 12:00 69 01/20/18 12:00 97.7 67 20 113/45 97 Nasal Cannula 2.0 97.7 01/20/18 09:40 126/56 01/20/18 08:00 62 01/20/18 08:00 97.5 68 20 126/56 97 Nasal Cannula 2.0 97.5 01/20/18 07:20 70 16 100 Nasal Cannula 2.0 28 01/20/18 07:20 68 16 100 Nasal Cannula 2.0 28 01/20/18 07:08 98 Nasal Cannula 2.0 28 01/20/18 07:08 64 16 98 Nasal Cannula 2.0 28 01/20/18 07:08 Nasal Cannula 2.0 28 01/20/18 04:00 98.8 73 20 104/48 94 Nasal Cannula 2.0 98.8 01/20/18 04:00 69 01/20/18 00:00 71 01/20/18 00:00 99.0 59 20 105/48 94 Nasal Cannula 2.0 99.0 01/19/18 23:24 72 18 99 Nasal Cannula 2.0 28 01/19/18 23:14 70 16 97 Nasal Cannula 2.0 28 Intake and Output 01/19/18 01/20/18 19:00 07:00 Intake Total 1725.000 ml 200 ml Output Total 1200 ml 1500 ml Balance 525.000 ml -1300 ml Intake Oral 1300 ml 200 ml IV Total 425.000 ml Output Urine Total 1200 ml 1500 ml # Voids 8 Laboratory Tests 01/20/18 06:40: White Blood Count 6.6, Red Blood Count 4.44, Hemoglobin 11.9L, Hematocrit 36.8L , Mean Corpuscular Volume 83, Mean Corpuscular Hemoglobin 26.7L, Mean Corpuscular Hemoglobin Concent 32.3, Red Cell Distribution Width 16.6H, Platelet Count 224, Mean Platelet Volume 7.8, Neutrophils (%) (Auto) 65.9, Lymphocytes (%) (Auto) 18.3L, Monocytes (%) (Auto) 10.1H, Eosinophils (%) (Auto ) 4.3H, Basophils (%) (Auto) 1.4, Erythrocyte Sedimentation Rate 21, Sodium Level 140, Potassium Level 3.4L, Chloride Level 100, Carbon Dioxide Level 38H, Anion Gap 2L, Blood Urea Nitrogen 10, Creatinine 0.9, Estimat Glomerular Filtration Rate , Glucose Level 98, Calcium Level 9.3, Total Bilirubin 0.3, Aspartate Amino Transf (AST/SGOT) 17, Alanine Aminotransferase (ALT/SGPT) 19, Alkaline Phosphatase 123H, C-Reactive Protein, Quantitative 0.8, Total Protein 5.6L, Albumin 2.4L, Globulin 3.2, Albumin/Globulin Ratio 0.8L 01/20/18 16:20: Vancomycin Level Trough 10.6 Height (Feet): 5 Height (Inches): 0.00 Weight (Pounds): 241 Abraham Snyder MD Jan 20, 2018 22:47
[2018-01-21] MEDS: Pantoprazole Inj IVP SCH ×3 (01:28→09:36)
[2018-01-21 03:55] VITALS: BP 102/54
[2018-01-21] MEDS: Albuterol/Ipratropium 3ml neb HHN SCH ×3 (07:41→19:00)
[2018-01-21 07:47] LABS: BASOPHILS % (AUTO) 1.2 % (0.0-2.0); EOSINOPHILS % (AUTO) 4.5 % (0.0-3.0); HEMATOCRIT 36.3 % (37.0-47.0); HEMOGLOBIN 11.6 G/DL (12.0-16.0); LYMPHOCYTES % (AUTO) 21.6 % (20.0-45.0); MEAN CORPUSCULAR VOLUME 83 FL (80-99); MONOCYTES % (AUTO) 10.5 % (1.0-10.0); NEUTROPHILS % (AUTO) 62.2 % (45.0-75.0); PLATELET COUNT 230 K/UL (150-450); RED BLOOD COUNT 4.37 M/UL (4.20-5.40); RED CELL DISTRIBUTION WIDTH 16.6 % (11.6-14.8); WHITE BLOOD COUNT 6.4 K/UL (4.8-10.8)
[2018-01-21 08:00] VITALS: BP 112/46
[2018-01-21 08:08] LABS: ANION GAP 2 mmol/L (5-15); BLOOD UREA NITROGEN 11 mg/dL (7-18); CALCIUM 9.5 MG/DL (8.5-10.1); CARBON DIOXIDE 39 MMOL/L (21-32); CHLORIDE 99 MMOL/L (98-107); CREATININE 0.9 MG/DL (0.55-1.30); POTASSIUM 3.8 MMOL/L (3.5-5.1); SODIUM 140 MMOL/L (136-145)
[2018-01-21] MEDS ORDERED: DULoxetine 30mg cap ORAL SCH (09:00)
[2018-01-21] MEDS: Nystatin Powder 100,000 units/gm 15gm TOPIC SCH ×3 (09:36→17:26)
[2018-01-21] MEDS: Benzonatate 100mg Perles ORAL SCH ×3 (09:37→17:26)
[2018-01-21] MEDS: Docusate 100mg cap ORAL SCH (09:37)
[2018-01-21] MEDS: Heparin 5000 units/ml inj SUBQ SCH (09:41)
[2018-01-21] MEDS: Memantine 10mg tab ORAL SCH (10:35)
[2018-01-21] MEDS: guaiFENesin ER 600mg tab ORAL SCH ×2 (10:41→17:26)
[2018-01-21 12:00] VITALS: BP 126/72
[2018-01-21] MEDS ORDERED: Levofloxacin 500mg tab ORAL SCH (13:00)
[2018-01-21] MEDS ORDERED: Bactrim-DS 1 tab ORAL SCH (13:00)
[2018-01-21] MEDS ORDERED: POTASSIUM CHLO10 ME3 ORAL (13:18)
[2018-01-21] MEDS ORDERED: PROTONIX40 MG ORAL (13:18)
[2018-01-21] MEDS ORDERED: LEVAQUIN500 MG ORAL (13:18)
[2018-01-21] MEDS ORDERED: BACTRIM-DS1 EA ORAL (13:18)
[2018-01-21] MEDS ORDERED: FUROSEMIDE40 MG ORAL (13:18)
--- NOTE | 2018-01-21 13:46 | General Surgery Progress Note ---
General Surgery-Progress Note Subjective Symptoms: improved Additional Comments no acute events. Objective Last 24 Hour Vital Signs Date Time Temp Pulse Resp B/P (MAP) Pulse Ox O2 Delivery O2 Flow Rate FiO2 01/21/18 13:19 72 18 99 Nasal Cannula 2.0 28 01/21/18 13:14 71 18 98 Nasal Cannula 2.0 28 01/21/18 12:00 97.7 66 20 126/72 99 97.7 01/21/18 09:37 120/46 01/21/18 08:00 97.5 71 20 112/46 96 Nasal Cannula 2.0 97.5 01/21/18 07:47 74 18 99 Nasal Cannula 2.0 28 01/21/18 07:43 98 Nasal Cannula 2.0 28 01/21/18 07:42 71 18 98 Nasal Cannula 2.0 28 01/21/18 07:42 Nasal Cannula 2.0 28 01/21/18 03:55 98.2 67 20 102/54 100 Room Air 98.2 68 01/20/18 23:52 79 16 100 Nasal Cannula 2.0 28 01/20/18 23:45 98.1 70 20 124/69 100 Room Air 98.1 70 01/20/18 23:40 74 16 97 Nasal Cannula 2.0 28 01/20/18 19:50 98.1 73 20 109/40 93 Room Air 98.1 69 01/20/18 18:56 80 16 100 Nasal Cannula 2.0 28 01/20/18 18:46 98 Nasal Cannula 2.0 28 01/20/18 18:46 Nasal Cannula 2.0 28 01/20/18 18:46 78 16 98 Nasal Cannula 2.0 28 01/20/18 15:58 97.5 75 18 100/68 93 97.5 I&O Intake and Output 01/20/18 01/21/18 19:00 07:00 Intake Total 480 ml 333.334 ml Output Total 1500 ml Balance 480 ml -1166.666 ml Intake Oral 480 ml IV Total 333.334 ml Output Urine Total 1500 ml # Voids 4 2 # Bowel Movements 1 Wound: clean Drains: none Cardiovascular: RSR Respiratory: clear Abdomen: soft, non-tender, present bowel sounds, other - area of panniculitis improved. edema and erythema improved. Extremities: no tenderness, no cyanosis Laboratory Tests Test 01/20/18 16:20 01/21/18 05:50 Vancomycin Level Trough 10.6 ug/mL (5.0-12.0) White Blood Count 6.4 K/UL (4.8-10.8) Red Blood Count 4.37 M/UL (4.20-5.40) Hemoglobin 11.6 G/DL (12.0-16.0) L Hematocrit 36.3 % (37.0-47.0) L Mean Corpuscular Volume 83 FL (80-99) Mean Corpuscular Hemoglobin 26.6 PG (27.0-31.0) L Mean Corpuscular Hemoglobin Concent 32.0 G/DL (32.0-36.0) Red Cell Distribution Width 16.6 % (11.6-14.8) H Platelet Count 230 K/UL (150-450) Mean Platelet Volume 8.1 FL (6.5-10.1) Neutrophils (%) (Auto) 62.2 % (45.0-75.0) Lymphocytes (%) (Auto) 21.6 % (20.0-45.0) Monocytes (%) (Auto) 10.5 % (1.0-10.0) H Eosinophils (%) (Auto) 4.5 % (0.0-3.0) H Basophils (%) (Auto) 1.2 % (0.0-2.0) Sodium Level 140 MMOL/L (136-145) Potassium Level 3.8 MMOL/L (3.5-5.1) Chloride Level 99 MMOL/L (98-107) Carbon Dioxide Level 39 MMOL/L (21-32) H Anion Gap 2 mmol/L (5-15) L Blood Urea Nitrogen 11 mg/dL (7-18) Creatinine 0.9 MG/DL (0.55-1.30) Estimat Glomerular Filtration Rate mL/min (>60) Glucose Level 90 MG/DL (74-106) Calcium Level 9.5 MG/DL (8.5-10.1) Pro-B-Type Natriuretic Peptide 994 pg/mL (0-125) H Plan Problems: (1) Panniculitis Assessment & Plan: 77F with multiple prior abdominal surgeries for hernia with prior complications and recurrence. Has large pannus with mild superficial panniculitis. currently admitted for respiratory problems and UTI. abdominal discomfort minimal. no signs or symptoms of obstruction. hernia large and abdomen benign except for chronic issues such as pannus. IMPRESSION: Massive ventral hernia with the nearly all of the bowel as well as portions of the liver, spleen and pancreas herniating through the defect and located within the large pannus. Dependent edema and skin thickening on the inferior portions of the pannus. Correlate clinically to exclude cellulitis. No well-defined/drainable fluid collection identified at this time. -no surgical intervention necessary. -As for wound care, keep area between pannus and thigh clean and dry. -would NOT recommend hernia surgery unless emergency (i.e. not reducible or strangulated) as patient is very high risk. he has had multiple prior failed attempts at ventral hernia repair and some associated with significant complications and morbidity. -pannus likely dependant edema as anticipated. improving. -okay to D/C from surgical standpoint thank you for this consult. will follow with Adriano Jo Jan 21, 2018 13:46
--- NOTE | 2018-01-21 14:15 | Pulmonology Progress Note ---
Assessment/Plan Assessment/Plan ASSESSMENT: The patient is a morbidly obese 77-year-old female with history of congestive heart failure with diastolic dysfunction, reactive airway disease, multiple abdominal surgeries, panniculitis, respiratory insufficiency secondary to the breast cancer status post lumpectomy and mastectomy in the past, and obstructive sleep apnea noncompliant with therapy, presenting with dyspnea in the setting of abdominal discomfort and urinary tract infection. There is no evidence of pneumonia on her plain film, but she is being broadly covered for her abdominal wound and urinary tract infection as well as common respiratory pathogens. I suspect she has a component of decompensated heart failure as well. The patient has a CT abdomen and pelvis ordered. I have expanded it to include the chest to further evaluate the parenchymal changes. PROBLEM LIST: 1. Dyspnea and hypoxemia likely secondary to intraabdominal process and a component of pulmonary edema. 2. Reactive airway disease without evidence of exacerbation. 3. Congestive heart failure with diastolic dysfunction and acute decompensated heart failure. 4. History of abdominal wall cellulitis, panniculitis, and multiple abdominal surgeries. 5. GNR Urinary tract infection. 6. Morbid obesity. 7. Obstructive sleep apnea and likely obesity hypoventilation, not currently on CPAP therapy. 8. Protein-calorie malnutrition. 9. Urinary tract infection. 10. Hypertension. 11. Gastroesophageal reflux disease. 12. History of incarcerated hernia repair in the past. TREATMENT PLAN: 1. Optimize pulmonary hygiene/mobilize as tolerated. 2. Titrate down FiO2 to keep saturations greater than 90%. 3. Continue broad-spectrum antimicrobial therapy per Infectious Disease (Levaquin, vancomycin) . 4. Continue round the clock and p.r.n. bronchodilators. 5. Mucinex and p.r.n. Robitussin. 6. Monitor volumes, continue IV lasix as able. 7. F/U surgical recs 8. DVT prophylaxis, heparin subcutaneous. 9. Diet per [employer] with STRICT aspiration precautions. 10. The patient is a Full Code. Subjective Allergies: Coded Allergies: CLINDAMYCIN (Verified Allergy, Unknown, 01/16/18) PENICILLINS (Verified Allergy, Unknown, 01/16/18) PHENYTOIN (Verified Allergy, Unknown, 01/16/18) Subjective AFVSS, on RA to 2L No change in dyspnea, no cough, no wheezing, no F/C, abd complaints unchanged Objective Last 24 Hour Vital Signs Date Time Temp Pulse Resp B/P (MAP) Pulse Ox O2 Delivery O2 Flow Rate FiO2 01/21/18 13:19 72 18 99 Nasal Cannula 2.0 28 01/21/18 13:14 71 18 98 Nasal Cannula 2.0 28 01/21/18 12:00 97.7 66 20 126/72 99 97.7 01/21/18 09:37 120/46 01/21/18 08:00 97.5 71 20 112/46 96 Nasal Cannula 2.0 97.5 01/21/18 07:47 74 18 99 Nasal Cannula 2.0 28 01/21/18 07:43 98 Nasal Cannula 2.0 28 01/21/18 07:42 71 18 98 Nasal Cannula 2.0 28 01/21/18 07:42 Nasal Cannula 2.0 28 01/21/18 03:55 98.2 67 20 102/54 100 Room Air 98.2 68 01/20/18 23:52 79 16 100 Nasal Cannula 2.0 28 01/20/18 23:45 98.1 70 20 124/69 100 Room Air 98.1 70 01/20/18 23:40 74 16 97 Nasal Cannula 2.0 28 01/20/18 19:50 98.1 73 20 109/40 93 Room Air 98.1 69 01/20/18 18:56 80 16 100 Nasal Cannula 2.0 28 01/20/18 18:46 98 Nasal Cannula 2.0 28 01/20/18 18:46 Nasal Cannula 2.0 28 01/20/18 18:46 78 16 98 Nasal Cannula 2.0 28 01/20/18 15:58 97.5 75 18 100/68 93 97.5 Intake and Output 01/20/18 01/21/18 19:00 07:00 Intake Total 480 ml 333.334 ml Output Total 1500 ml Balance 480 ml -1166.666 ml Intake Oral 480 ml IV Total 333.334 ml Output Urine Total 1500 ml # Voids 4 2 # Bowel Movements 1 General Appearance: WD/WN, no acute distress, other - morbid obese HEENT: normocephalic, atraumatic, anicteric, mucous membranes moist Respiratory/Chest: chest wall non-tender, lungs clear, normal breath sounds, no respiratory distress Cardiovascular: normal peripheral pulses, normal rate, regular rhythm Abdomen: normal bowel sounds, soft, non tender, no organomegaly, other - panniculitis unchange Extremities: no cyanosis, no clubbing, other - 2+ PENNIE Laboratory Tests 01/20/18 16:20: Vancomycin Level Trough 10.6 01/21/18 05:50: White Blood Count 6.4, Red Blood Count 4.37, Hemoglobin 11.6L, Hematocrit 36.3L , Mean Corpuscular Volume 83, Mean Corpuscular Hemoglobin 26.6L, Mean Corpuscular Hemoglobin Concent 32.0, Red Cell Distribution Width 16.6H, Platelet Count 230, Mean Platelet Volume 8.1, Neutrophils (%) (Auto) 62.2, Lymphocytes (%) (Auto) 21.6, Monocytes (%) (Auto) 10.5H, Eosinophils (%) (Auto) 4.5H, Basophils (%) (Auto) 1.2, Sodium Level 140, Potassium Level 3.8, Chloride Level 99, Carbon Dioxide Level 39H, Anion Gap 2L, Blood Urea Nitrogen 11, Creatinine 0.9, Estimat Glomerular Filtration Rate , Glucose Level 90, Calcium Level 9.5, Pro-B-Type Natriuretic Peptide 994H Current Medications Medications (Trade) Dose Ordered Sig/Wiliam Route PRN Reason Start Time Stop Time Status Last Admin Dose Admin Acetaminophen/ Hydrocodone Bitart ([place] 5/325) 1 tab Q4H PRN ORAL Moderate Pain (Pain Scale 4-6) 01/20/18 17:45 01/24/18 17:44 Acetaminophen/ Hydrocodone Bitart ([place] 7.5/325) 1 tab Q4H PRN ORAL Severe Pain (Pain Scale 7-10) 01/20/18 18:00 01/24/18 17:59 Albuterol/ Ipratropium (Albuterol/ Ipratropium) 3 ml Q4H PRN HHN Shortness of Breath 01/20/18 18:00 01/22/18 17:59 Albuterol/ Ipratropium (Albuterol/ Ipratropium) 3 ml Q6HRT HHN 01/20/18 19:00 01/22/18 18:59 01/21/18 13:14 Atorvastatin Calcium (Lipitor) 20 mg BEDTIME ORAL 01/20/18 21:00 02/16/18 20:59 01/20/18 23:39 Benzonatate (Tessalon Perles) 100 mg THREE TIMES A DAY ORAL 01/20/18 18:00 02/16/18 17:59 01/21/18 13:07 Chlorhexidine Gluconate (Zeinab-Hex 2%) 1 applic DAILY@2000 TOPIC 01/20/18 20:00 02/19/18 19:59 Clonazepam (KlonoPIN) 1 mg BEDTIME ORAL 01/20/18 21:00 01/24/18 20:59 01/20/18 23:39 Clopidogrel Bisulfate (Plavix) 75 mg DAILY ORAL 01/21/18 09:00 02/16/18 08:59 01/21/18 09:37 Dextrose (Dextrose 50%) STAT PRN IV Hypoglycemia 01/20/18 18:00 02/19/18 17:59 Docusate Sodium (Colace) 100 mg Q12HR ORAL 01/20/18 21:00 02/18/18 21:59 01/21/18 09:37 Duloxetine HCl (Cymbalta) 30 mg DAILY ORAL 01/21/18 09:00 02/16/18 08:59 01/21/18 09:36 Ferrous Sulfate (Feosol) 325 mg DAILY ORAL 01/21/18 09:00 02/16/18 08:59 01/21/18 09:36 Furosemide (Lasix) 40 mg EVERY 12 HOURS IV 01/20/18 21:00 02/17/18 20:59 01/21/18 01:23 Guaifenesin (Mucinex ER) 600 mg TWICE A DAY ORAL 01/20/18 18:00 02/16/18 13:29 01/21/18 10:41 Guaifenesin (Robitussin) 200 mg Q4H PRN ORAL For Cough 01/20/18 18:00 02/16/18 17:59 Heparin Sodium (Porcine) (Heparin 5000 units/ml) 5,000 units EVERY 12 HOURS SUBQ 01/20/18 21:00 02/16/18 08:59 01/21/18 09:41 Hydromorphone HCl (Dilaudid) 0.5 mg Q4H PRN IVP SEVERE BREAKTHROUGH PAIN 01/20/18 18:00 01/27/18 17:59 Irbesartan (Avapro) 75 mg DAILY ORAL 01/21/18 09:00 02/17/18 08:59 01/21/18 09:37 Levofloxacin (Levaquin) 500 mg DAILY ORAL 01/21/18 13:00 01/28/18 12:59 01/21/18 13:07 Memantine (Namenda) 10 mg Q12HR ORAL 01/20/18 21:00 02/16/18 09:59 01/21/18 10:35 Nystatin (Nystop Powder) 1 applic THREE TIMES A DAY TOPIC 01/20/18 18:00 02/16/18 15:59 01/21/18 13:07 Pantoprazole (Protonix) 40 mg EVERY 12 HOURS IVP 01/20/18 21:00 02/16/18 13:29 01/21/18 01:28 Polyethylene Glycol (Miralax) 17 gm DAILYPRN PRN ORAL Constipation 01/20/18 18:00 02/19/18 17:59 Potassium Chloride (K-Dur) 10 meq TWICE A DAY ORAL 01/20/18 18:00 02/17/18 17:59 01/21/18 10:34 Ramelteon (Rozerem) 8 mg QHS ORAL 01/20/18 21:00 02/16/18 20:59 01/20/18 23:38 Trimethoprim/ Sulfamethoxazole (Bactrim-DS) 1 tab TWICE A DAY ORAL 01/21/18 13:00 01/28/18 12:59 01/21/18 13:07 LORENA HUBBARD M.D. Jan 21, 2018 14:14
--- NOTE | 2018-01-21 14:37 | Discharge Instructions ---
Discharge Instructions Discharge Instructions Follow up with: Primary care doctor in 1 week Call MD/Return to Hospital if: fevers, chest pain, SOB Services at Discharge: home health services Resume Normal Activity?: Yes Activity: resume normal activities Special Instructions Keep area between pannus and thigh clean and dry Continue lasix 40mg twice daily. Repeat labs (BMP/Mg) within 1 week For Congestive Heart Failure Reminder Report to your physician any weight gain of 5 pounds or more in one week. Yolanda Saez M.D. Jan 21, 2018 14:37
--- NOTE | 2018-01-21 15:23 | Infectious Diseases Prog Note ---
Assessment/Plan Assessment/Plan ASSESSMENT AND PLAN: 1. e.coli uti, ? cap vs atx/edema, abdominal wall cellulitis/panniculitis, ct noted, chest x-ray noted - continue vancomycin and levofloxacin - day # 5 abx - changed abx to levofloxacin plus bactrim x 5 days more - check f/u labs and chest x-ray - d/w Dr. Guerrero - stable from ID standpoint 2. Fungal rash. The patient on nystatin. 3. Anemia. 4. Obesity. 5. History of hernia surgery. 6. Depression. 7. No history of diabetes or hypertension. 8. Allergies to clindamycin, penicillin, and phenytoin. 9. Social history is negative. 10. Family history is noncontributory. 11. MAR was noted. 12. Case was discussed with RN. 13. Case was discussed with Dr. Guerrero and Surgery. 14. Notes and records were noted. 15. Orders were entered. Subjective Constitutional: Denies: fever HEENT: Denies: congestion Respiratory: Denies: shortness of breath Cardiovascular: Denies: chest pain Gastrointestinal/Abdominal: Denies: nausea, vomiting, diarrhea Genitourinary: Reports: other - no ford Neurologic: Denies: headache Psychiatric: Denies: depression Skin: Denies: rash Hematologic: Denies: bleeding Musculoskeletal: Denies: pain Allergies: Coded Allergies: CLINDAMYCIN (Verified Allergy, Unknown, 01/16/18) PENICILLINS (Verified Allergy, Unknown, 01/16/18) PHENYTOIN (Verified Allergy, Unknown, 01/16/18) Objective Vital Signs Last 24 Hour Vital Signs Date Time Temp Pulse Resp B/P (MAP) Pulse Ox O2 Delivery O2 Flow Rate FiO2 01/21/18 13:19 72 18 99 Nasal Cannula 2.0 28 01/21/18 13:14 71 18 98 Nasal Cannula 2.0 28 01/21/18 12:00 97.7 66 20 126/72 99 97.7 01/21/18 09:37 120/46 01/21/18 08:00 97.5 71 20 112/46 96 Nasal Cannula 2.0 97.5 01/21/18 07:47 74 18 99 Nasal Cannula 2.0 28 01/21/18 07:43 98 Nasal Cannula 2.0 28 01/21/18 07:42 71 18 98 Nasal Cannula 2.0 28 01/21/18 07:42 Nasal Cannula 2.0 28 01/21/18 03:55 98.2 67 20 102/54 100 Room Air 98.2 68 01/20/18 23:52 79 16 100 Nasal Cannula 2.0 28 01/20/18 23:45 98.1 70 20 124/69 100 Room Air 98.1 70 01/20/18 23:40 74 16 97 Nasal Cannula 2.0 28 01/20/18 19:50 98.1 73 20 109/40 93 Room Air 98.1 69 01/20/18 18:56 80 16 100 Nasal Cannula 2.0 28 01/20/18 18:46 98 Nasal Cannula 2.0 28 01/20/18 18:46 Nasal Cannula 2.0 28 01/20/18 18:46 78 16 98 Nasal Cannula 2.0 28 01/20/18 15:58 97.5 75 18 100/68 93 97.5 Height (Feet): 5 Height (Inches): 0.00 Weight (Pounds): 218 General Appearance: no acute distress HEENT: normocephalic, atraumatic, anicteric, mucous membranes moist Respiratory/Chest: lungs clear, normal breath sounds, no respiratory distress, no accessory muscle use Cardiovascular: normal rate, regular rhythm, no gallop/murmur, no JVD Abdomen: normal bowel sounds, soft, non tender, no organomegaly, non distended , other - mild erythema Genitourinary: other - no ford, no cva pain Extremities: no cyanosis Skin: no rash 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 Evaluation also degraded due to under penetration, likely related to patient's body habitus. Heart size and mediastinal contours appear stable allowing for differences in patient positioning. Retrocardiac atelectasis or consolidation cannot be excluded. There is no definite pneumothorax. Osseous structures appear stable. Impression: Limited exam. Cardiomegaly and possible mild interstitial opacification/edema. Retrocardiac atelectasis/consolidation not entirely excluded. CT abdomen and pelvis - IMPRESSION: Limited exam without intravenous and oral contrast. Within these limitations: * Massive ventral hernia with the nearly all of the bowel as well as portions of the liver, spleen and pancreas herniating through the defect and located within the large pannus. * Dependent edema and skin thickening on the inferior portions of the pannus. Correlate clinically to exclude cellulitis. No well-defined/drainable fluid collection identified at this time. * Small bilateral pleural effusions with adjacent atelectasis/consolidation in the bilateral lower lobes. * Cardiomegaly with probable coronary arterial calcification. * 5 cm fluid partially visualized fluid attenuation structure in the region of the left axilla. This may represent a seroma given multiple surgical clips in the left axilla. Additional etiologies not excluded. Contrast-enhanced exam recommended for better evaluation. Microbiology Date/Time Source Procedure Growth Status 01/17/18 01:20 Blood Blood Culture - Preliminary NO GROWTH AFTER 4 DAYS Resulted 01/17/18 03:50 Nasal Nares Influenza Types A,B Antigen ([place]) - Final Complete 01/17/18 01:30 Urine,Clean Catch Urine Culture - Final Escherichia Coli Mixed Gram Positive Organism Complete Laboratory Tests Test 01/20/18 16:20 01/21/18 05:50 Vancomycin Level Trough 10.6 ug/mL (5.0-12.0) White Blood Count 6.4 K/UL (4.8-10.8) Red Blood Count 4.37 M/UL (4.20-5.40) Hemoglobin 11.6 G/DL (12.0-16.0) L Hematocrit 36.3 % (37.0-47.0) L Mean Corpuscular Volume 83 FL (80-99) Mean Corpuscular Hemoglobin 26.6 PG (27.0-31.0) L Mean Corpuscular Hemoglobin Concent 32.0 G/DL (32.0-36.0) Red Cell Distribution Width 16.6 % (11.6-14.8) H Platelet Count 230 K/UL (150-450) Mean Platelet Volume 8.1 FL (6.5-10.1) Neutrophils (%) (Auto) 62.2 % (45.0-75.0) Lymphocytes (%) (Auto) 21.6 % (20.0-45.0) Monocytes (%) (Auto) 10.5 % (1.0-10.0) H Eosinophils (%) (Auto) 4.5 % (0.0-3.0) H Basophils (%) (Auto) 1.2 % (0.0-2.0) Sodium Level 140 MMOL/L (136-145) Potassium Level 3.8 MMOL/L (3.5-5.1) Chloride Level 99 MMOL/L (98-107) Carbon Dioxide Level 39 MMOL/L (21-32) H Anion Gap 2 mmol/L (5-15) L Blood Urea Nitrogen 11 mg/dL (7-18) Creatinine 0.9 MG/DL (0.55-1.30) Estimat Glomerular Filtration Rate mL/min (>60) Glucose Level 90 MG/DL (74-106) Calcium Level 9.5 MG/DL (8.5-10.1) Pro-B-Type Natriuretic Peptide 994 pg/mL (0-125) H Current Medications Medications (Trade) Dose Ordered Sig/Wiliam Route PRN Reason Start Time Stop Time Status Last Admin Dose Admin Acetaminophen/ Hydrocodone Bitart (Hazlet 5/325) 1 tab Q4H PRN ORAL Moderate Pain (Pain Scale 4-6) 01/20/18 17:45 01/24/18 17:44 Acetaminophen/ Hydrocodone Bitart (Hazlet 7.5/325) 1 tab Q4H PRN ORAL Severe Pain (Pain Scale 7-10) 01/20/18 18:00 01/24/18 17:59 Albuterol/ Ipratropium (Albuterol/ Ipratropium) 3 ml Q4H PRN HHN Shortness of Breath 01/20/18 18:00 01/22/18 17:59 Albuterol/ Ipratropium (Albuterol/ Ipratropium) 3 ml Q6HRT HHN 01/20/18 19:00 01/22/18 18:59 01/21/18 13:14 Atorvastatin Calcium (Lipitor) 20 mg BEDTIME ORAL 01/20/18 21:00 02/16/18 20:59 01/20/18 23:39 Benzonatate (Tessalon Perles) 100 mg THREE TIMES A DAY ORAL 01/20/18 18:00 02/16/18 17:59 01/21/18 13:07 Chlorhexidine Gluconate (Zeinab-Hex 2%) 1 applic DAILY@1999 TOPIC 01/20/18 20:00 02/19/18 19:59 Clonazepam (KlonoPIN) 1 mg BEDTIME ORAL 01/20/18 21:00 01/24/18 20:59 01/20/18 23:39 Clopidogrel Bisulfate (Plavix) 75 mg DAILY ORAL 01/21/18 09:00 02/16/18 08:59 01/21/18 09:37 Dextrose (Dextrose 50%) STAT PRN IV Hypoglycemia 01/20/18 18:00 02/19/18 17:59 Docusate Sodium (Colace) 100 mg Q12HR ORAL 01/20/18 21:00 02/18/18 21:59 01/21/18 09:37 Duloxetine HCl (Cymbalta) 30 mg DAILY ORAL 01/21/18 09:00 02/16/18 08:59 01/21/18 09:36 Ferrous Sulfate (Feosol) 325 mg DAILY ORAL 01/21/18 09:00 02/16/18 08:59 01/21/18 09:36 Furosemide (Lasix) 40 mg EVERY 12 HOURS IV 01/20/18 21:00 02/17/18 20:59 01/21/18 01:23 Guaifenesin (Mucinex ER) 600 mg TWICE A DAY ORAL 01/20/18 18:00 02/16/18 13:29 01/21/18 10:41 Guaifenesin (Robitussin) 200 mg Q4H PRN ORAL For Cough 01/20/18 18:00 02/16/18 17:59 Heparin Sodium (Porcine) (Heparin 5000 units/ml) 5,000 units EVERY 12 HOURS SUBQ 01/20/18 21:00 02/16/18 08:59 01/21/18 09:41 Hydromorphone HCl (Dilaudid) 0.5 mg Q4H PRN IVP SEVERE BREAKTHROUGH PAIN 01/20/18 18:00 01/27/18 17:59 Irbesartan (Avapro) 75 mg DAILY ORAL 01/21/18 09:00 02/17/18 08:59 01/21/18 09:37 Levofloxacin (Levaquin) 500 mg DAILY ORAL 01/21/18 13:00 01/28/18 12:59 01/21/18 13:07 Memantine (Namenda) 10 mg Q12HR ORAL 01/20/18 21:00 02/16/18 09:59 01/21/18 10:35 Nystatin (Nystop Powder) 1 applic THREE TIMES A DAY TOPIC 01/20/18 18:00 02/16/18 15:59 01/21/18 13:07 Pantoprazole (Protonix) 40 mg EVERY 12 HOURS IVP 01/20/18 21:00 02/16/18 13:29 01/21/18 01:28 Polyethylene Glycol (Miralax) 17 gm DAILYPRN PRN ORAL Constipation 01/20/18 18:00 02/19/18 17:59 Potassium Chloride (K-Dur) 10 meq TWICE A DAY ORAL 01/20/18 18:00 02/17/18 17:59 01/21/18 10:34 Ramelteon (Rozerem) 8 mg QHS ORAL 01/20/18 21:00 02/16/18 20:59 01/20/18 23:38 Trimethoprim/ Sulfamethoxazole (Bactrim-DS) 1 tab TWICE A DAY ORAL 01/21/18 13:00 01/28/18 12:59 01/21/18 13:07 JAX RETANA 20, 2018 15:23
[2018-01-21 16:08] VITALS: BP 115/52
--- NOTE | 2018-01-21 17:22 | Cardiac Electrophysiology PN ---
Assessment/Plan Assessment/Plan 1. Troponin leak. The patient's creatinine is within normal range. Two follow up troponins were negative. Her echocardiogram showed ejection fraction of 45% to 50% and her initial EKG was essentially normal. 2. Congestive heart failure. BNP of more than 2000 and ejection fraction of 45% to 50%. Decrease Lasix 40 mg po daily upon discharge 3. Hypertension, on Avapro 75 mg daily and Lasix. 4. Hyperlipidemia, on Lipitor. 5. Pneumonia, on IV antibiotic and nebulizer. AMY RN Subjective Subjective Feeling better . No chest pain or SOB Objective Last 24 Hour Vital Signs Date Time Temp Pulse Resp B/P (MAP) Pulse Ox O2 Delivery O2 Flow Rate FiO2 01/21/18 16:08 97.5 68 18 115/52 97 Nasal Cannula 2.0 97.5 01/21/18 13:19 72 18 99 Nasal Cannula 2.0 28 01/21/18 13:14 71 18 98 Nasal Cannula 2.0 28 01/21/18 12:00 97.7 66 20 126/72 99 97.7 01/21/18 09:37 120/46 01/21/18 08:00 97.5 71 20 112/46 96 Nasal Cannula 2.0 97.5 01/21/18 07:47 74 18 99 Nasal Cannula 2.0 28 01/21/18 07:43 98 Nasal Cannula 2.0 28 01/21/18 07:42 71 18 98 Nasal Cannula 2.0 28 01/21/18 07:42 Nasal Cannula 2.0 28 01/21/18 03:55 98.2 67 20 102/54 100 Room Air 98.2 68 01/20/18 23:52 79 16 100 Nasal Cannula 2.0 28 01/20/18 23:45 98.1 70 20 124/69 100 Room Air 98.1 70 01/20/18 23:40 74 16 97 Nasal Cannula 2.0 28 01/20/18 19:50 98.1 73 20 109/40 93 Room Air 98.1 69 01/20/18 18:56 80 16 100 Nasal Cannula 2.0 28 01/20/18 18:46 98 Nasal Cannula 2.0 28 01/20/18 18:46 Nasal Cannula 2.0 28 01/20/18 18:46 78 16 98 Nasal Cannula 2.0 28 Intake and Output 01/20/18 01/21/18 19:00 07:00 Intake Total 480 ml 333.334 ml Output Total 1500 ml Balance 480 ml -1166.666 ml Intake Oral 480 ml IV Total 333.334 ml Output Urine Total 1500 ml # Voids 4 2 # Bowel Movements 1 Laboratory Tests Test 01/21/18 05:50 White Blood Count 6.4 K/UL (4.8-10.8) Red Blood Count 4.37 M/UL (4.20-5.40) Hemoglobin 11.6 G/DL (12.0-16.0) L Hematocrit 36.3 % (37.0-47.0) L Mean Corpuscular Volume 83 FL (80-99) Mean Corpuscular Hemoglobin 26.6 PG (27.0-31.0) L Mean Corpuscular Hemoglobin Concent 32.0 G/DL (32.0-36.0) Red Cell Distribution Width 16.6 % (11.6-14.8) H Platelet Count 230 K/UL (150-450) Mean Platelet Volume 8.1 FL (6.5-10.1) Neutrophils (%) (Auto) 62.2 % (45.0-75.0) Lymphocytes (%) (Auto) 21.6 % (20.0-45.0) Monocytes (%) (Auto) 10.5 % (1.0-10.0) H Eosinophils (%) (Auto) 4.5 % (0.0-3.0) H Basophils (%) (Auto) 1.2 % (0.0-2.0) Sodium Level 140 MMOL/L (136-145) Potassium Level 3.8 MMOL/L (3.5-5.1) Chloride Level 99 MMOL/L (98-107) Carbon Dioxide Level 39 MMOL/L (21-32) H Anion Gap 2 mmol/L (5-15) L Blood Urea Nitrogen 11 mg/dL (7-18) Creatinine 0.9 MG/DL (0.55-1.30) Estimat Glomerular Filtration Rate mL/min (>60) Glucose Level 90 MG/DL (74-106) Calcium Level 9.5 MG/DL (8.5-10.1) Pro-B-Type Natriuretic Peptide 994 pg/mL (0-125) H Objective HEAD AND NECK: No JVD. LUNGS: Coarse rhonchi. CARDIOVASCULAR: Shows regular S1 and S2 with no gallop. ABDOMEN: Soft and morbidly obese. EXTREMITIES: No pitting edema. MIKE DIAL Jan 21, 2018 17:21
--- NOTE | 2018-01-21 18:52 | Cardiology Report ---
APPROVED REPORT EKG Measurement Heart [id number] Normal sinus rhythm Normal ECG
[2018-01-21 19:20] VITALS: BP 131/74
[2018-01-21 19:50] VITALS: BP 118/60
[2018-01-21] MEDS: Dyna-Hex 2% Top Sol 2oz TOPIC SCH (20:00)
--- NOTE | 2018-01-21 21:06 | General Progress Note ---
Assessment/Plan Status: stable, progressing Assessment/Plan mdd anxiety cont current meds provided ro/st Subjective Date patient seen: Jan 21, 2018 Neurologic/Psychiatric: Reports: anxiety, depressed, emotional problems Allergies: Coded Allergies: CLINDAMYCIN (Verified Allergy, Unknown, 01/16/18) PENICILLINS (Verified Allergy, Unknown, 01/16/18) PHENYTOIN (Verified Allergy, Unknown, 01/16/18) Objective Last 24 Hour Vital Signs Date Time Temp Pulse Resp B/P (MAP) Pulse Ox O2 Delivery O2 Flow Rate FiO2 01/21/18 19:50 98.7 82 20 118/60 93 98.7 01/21/18 19:20 Room Air 01/21/18 19:20 Room Air 21 01/21/18 19:20 Room Air 21 01/21/18 19:20 Room Air 01/21/18 19:20 98.1 81 20 131/74 91 Room Air 98.1 78 01/21/18 16:08 97.5 68 18 115/52 97 Nasal Cannula 2.0 97.5 01/21/18 13:19 72 18 99 Nasal Cannula 2.0 28 01/21/18 13:14 71 18 98 Nasal Cannula 2.0 28 01/21/18 12:00 97.7 66 20 126/72 99 97.7 01/21/18 09:37 120/46 01/21/18 08:00 97.5 71 20 112/46 96 Nasal Cannula 2.0 97.5 01/21/18 07:47 74 18 99 Nasal Cannula 2.0 28 01/21/18 07:43 98 Nasal Cannula 2.0 28 01/21/18 07:42 71 18 98 Nasal Cannula 2.0 28 01/21/18 07:42 Nasal Cannula 2.0 28 01/21/18 03:55 98.2 67 20 102/54 100 Room Air 98.2 68 01/20/18 23:52 79 16 100 Nasal Cannula 2.0 28 01/20/18 23:45 98.1 70 20 124/69 100 Room Air 98.1 70 01/20/18 23:40 74 16 97 Nasal Cannula 2.0 28 Intake and Output 01/20/18 01/21/18 19:00 07:00 Intake Total 480 ml 333.334 ml Output Total 1500 ml Balance 480 ml -1166.666 ml Intake Oral 480 ml IV Total 333.334 ml Output Urine Total 1500 ml # Voids 4 2 # Bowel Movements 1 Laboratory Tests 01/21/18 05:50: White Blood Count 6.4, Red Blood Count 4.37, Hemoglobin 11.6L, Hematocrit 36.3L , Mean Corpuscular Volume 83, Mean Corpuscular Hemoglobin 26.6L, Mean Corpuscular Hemoglobin Concent 32.0, Red Cell Distribution Width 16.6H, Platelet Count 230, Mean Platelet Volume 8.1, Neutrophils (%) (Auto) 62.2, Lymphocytes (%) (Auto) 21.6, Monocytes (%) (Auto) 10.5H, Eosinophils (%) (Auto) 4.5H, Basophils (%) (Auto) 1.2, Sodium Level 140, Potassium Level 3.8, Chloride Level 99, Carbon Dioxide Level 39H, Anion Gap 2L, Blood Urea Nitrogen 11, Creatinine 0.9, Estimat Glomerular Filtration Rate , Glucose Level 90, Calcium Level 9.5, Pro-B-Type Natriuretic Peptide 994H Height (Feet): 5 Height (Inches): 0.00 Weight (Pounds): 218 Jarek Kemp M.D. Jan 21, 2018 21:06
[2018-01-21] MEDS ORDERED: NS 275ml ONE (21:39)
[2018-01-21] MEDS ORDERED: Tubing IV Secondary IV ONE ×2 (21:39)
--- NOTE | 2018-01-22 11:56 | General Progress Note ---
Assessment/Plan Assessment/Plan 1. Breast cancer, status post mastectomy and lumpectomy, at this time, no evidence of recurrence. --> Continue to closely monitor. --> The patient has been seen by Dr. Wiliam Snyder in the past as an outpatient continue to closely evaluate. --> Closely continue monitoring as needed. Mammograms every two years. 2. Anemia due to underlying chronic disease. --> Also, hemodilutional component likely present. --> Transfuse if hemoglobin <7 --> Blood transfusion not required at this time. 3. Multiple abdominal surgeries history in the past. 4. Mild superficial panniculitis. --> No surgery intervention necessary as per surgical team. 5. Morbid obesity. --> Recommend weight loss. 6. Hypokalemia. --> Replete potassium with primary team. Subjective Date patient seen: Jan 21, 2018 Constitutional: Denies: no symptoms, chills, diaphoresis, fever, malaise, weakness, other HEENT: Denies: no symptoms, eye pain, blurred vision, tearing, double vision, ear pain, ear discharge, nose pain, nose congestion, throat pain, throat swelling, mouth pain, mouth swelling, other Cardiovascular: Denies: no symptoms, chest pain, edema, irregular heart rate, lightheadedness, palpitations, syncope, other Respiratory: Denies: no symptoms, cough, orthopnea, shortness of breath, SOB with excertion, SOB at rest, sputum, stridor, wheezing, other Gastrointestinal/Abdominal: Denies: no symptoms, abdomen distended, abdominal pain, black stools, tarry stools, blood in stool, constipated, diarrhea, difficulty swallowing, nausea, poor appetite, poor fluid intake, rectal bleeding , vomiting, other Genitourinary: Denies: no symptoms, burning, discharge, frequency, flank pain, hematuria, incontinence, pain, urgency, other Neurologic/Psychiatric: Denies: no symptoms, anxiety, depressed, emotional problems, headache, numbness, paresthesia, pre-existing deficit, seizure, tingling, tremors, weakness, other Hematologic/Lymphatic: Reports: anemia Allergies: Coded Allergies: CLINDAMYCIN (Verified Allergy, Unknown, 01/16/18) PENICILLINS (Verified Allergy, Unknown, 01/16/18) PHENYTOIN (Verified Allergy, Unknown, 01/16/18) Subjective No major events overnight. NAD. Pending discharge today. Objective Last 24 Hour Vital Signs Date Time Temp Pulse Resp B/P (MAP) Pulse Ox O2 Delivery O2 Flow Rate FiO2 01/21/18 19:50 98.7 82 20 118/60 93 98.7 01/21/18 19:20 Room Air 01/21/18 19:20 Room Air 21 01/21/18 19:20 Room Air 21 01/21/18 19:20 Room Air 01/21/18 19:20 98.1 81 20 131/74 91 Room Air 98.1 78 01/21/18 16:08 97.5 68 18 115/52 97 Nasal Cannula 2.0 97.5 01/21/18 13:19 72 18 99 Nasal Cannula 2.0 28 01/21/18 13:14 71 18 98 Nasal Cannula 2.0 28 01/21/18 12:00 97.7 66 20 126/72 99 97.7 Intake and Output 01/21/18 01/22/18 19:00 07:00 Intake Total 480 ml Balance 480 ml Intake Oral 480 ml # Voids 4 # Bowel Movements 1 Height (Feet): 5 Height (Inches): 0.00 Weight (Pounds): 218 General Appearance: no apparent distress Respiratory/Chest: decreased breath sounds Abdomen: soft Edema: trace edema Abraham Snyder MD Jan 22, 2018 11:56
--- NOTE | 2018-01-22 16:04 | Diagnostic Imaging Report ---
Indications: Reason For Exam: DYSPHAGIA Technique: Patient ingested multiple substances under the supervision of speech pathology. Video fluoroscopic recording performed. Total fluoroscopy time 130 seconds. Total dose area product [id number] mGycm2 Comparison: none Findings: There is prompt initiation of deglutition. No significant early or delayed pooling. No evidence of penetration or aspiration. Impression: Negative for aspiration or penetration. Please refer to speech pathology report for more detailed analysis
--- NOTE | 2018-01-22 20:19 | Cardiology Report ---
APPROVED REPORT EKG Measurement Heart [id number] Sinus rhythm with occasional premature ventricular complexes and premature atrial complexes Otherwise normal ECG
--- NOTE | 2018-01-28 08:47 | Discharge Summary ---
Discharge Summary Hospital Course Date of Admission Jan 17, 2018 at 02:22 Date of Discharge Jan 21, 2018 at 21:40 Admitting Diagnosis CHF, pneumonia Reason for Hospitalization: CHF, pneumonia HPI 77y/o female with pmh of morbid obesity, chronic diastolic heart failure, pulmonary hypertension, HTN, probable MISSY, abd wall hernia s/p multiple surgeries, SBO, breast cancer s/p lumpectomy and mastectomy, who presents with SOB and abd discomfort w/ swelling. Pt states symptoms have been worsening over the past few weeks. She notes cough with white sputum, congestion. Also c/o heartburn. Normally she can ambulate w/ walker but has been limited 2/2 SOB and because of increasing abd swelling. Notes increased drainage from abd wounds. She states she has multiple prior abd surgeries which have been complicated by wound failure and infection. She had one episode leading to sepsis and was in ICU for 1 month. Denies f/c, n/v, chest pain, dysuria. In ED, there was concern for pneumonia and UTI. Pt was given levaquin duonebs. Consultations Cardiology, Pulmonology, Infectious disease, Surgery Hospital Course Pt was admitted and continued on broad spectrum antibiotics gien concern for pneumonia and abd wall cellulitis. CT c/a/p was done whic showed massive ventral hernia with the nearly all of the bowel as well as portions of the liver , spleen and pancreas herniating through the defect and located within the large pannus. Per surgery, no acute intervention indicated. TTE showed EF 45-50 % with diastolic dysfunction. Pt was initiated on lasix IV with improvement in fluid status. Pt symptomatically improved. She was seen by PT/OT. SNF was recommended but pt and family declined. Home health was ordered prior to discharge. Pt was transitioned to oral antibiotics to complete course per ID. Discharge physical exam: (1) Acute on chronic diastolic (congestive) heart failure ICD Codes: I50.33 - Acute on chronic diastolic (congestive) heart failure SNOMED: 08594821, 494986967 (2) UTI (urinary tract infection) ICD Codes: N39.0 - Urinary tract infection, site not specified SNOMED: 25893413 (3) Panniculitis ICD Codes: M79.3 - Panniculitis, unspecified SNOMED: 19689612 (4) Abdominal wall cellulitis ICD Codes: L03.311 - Cellulitis of abdominal wall SNOMED: 92273745 (5) Morbid obesity ICD Codes: E66.01 - Morbid (severe) obesity due to excess calories SNOMED: 576446302, 83684688387050 (6) Probable MISSY (7) HTN (hypertension) ICD Codes: I10 - Essential (primary) hypertension SNOMED: 78290927 (8) Hypokalemia ICD Codes: E87.6 - Hypokalemia SNOMED: 50282188 (9) Hypomagnesemia ICD Codes: E83.42 - Hypomagnesemia Discharge Medications New Medications: Furosemide* (Lasix*) 40 Mg Tablet 40 MG ORAL TWICE A DAY for 30 Days, #60 TAB 0 Refills Pantoprazole* (Protonix*) 40 Mg Tablet.dr 40 MG ORAL DAILY for 30 Days, #30 TAB 3 Refills Levofloxacin* (Levaquin*) 500 Mg Tablet 500 MG ORAL DAILY for 7 Days, #7 TAB Potassium Chloride (Potassium Chloride) 10 Meq Tablet.er 10 MEQ ORAL TWICE A DAY for 14 Days, #30 TAB Trimethoprim/Sulfamethoxazole (Bactrim Ds Tablet) 1 Each Tablet 1 TAB ORAL TWICE A DAY for 7 Days, #14 TAB Continued Medications: Azelastine/Fluticasone (Dymista Nasal Dante) 23 Gm Dante.pump 23 GM NS (This prescription has been renewed) Clopidogrel Bisulfate* (Plavix*) 75 Mg Tablet 75 MG ORAL DAILY, TAB (This prescription has been renewed) Duloxetine Hcl* (Cymbalta*) 30 Mg Capsule.dr 30 MG ORAL DAILY, CAP (This prescription has been renewed) Ferrous Sulfate* (Ferrous Sulfate*) 325 Mg Tablet 325 MG ORAL DAILY, #30 TAB 0 Refills (This prescription has been renewed) Meclizine Hcl* (Meclizine*) 25 Mg Tablet 25 MG ORAL THREE TIMES A DAY, TAB (This prescription has been renewed) Memantine Hcl* (Namenda*) 5 Mg Tablet 5 MG ORAL DAILY, TAB (This prescription has been renewed) Olmesartan Medoxomil (Benicar) 5 Mg Tablet 5 MG ORAL DAILY, TAB (This prescription has been renewed) Potassium Gluconate (Potassium) 99 Mg Tablet 99 MG PO, TAB (This prescription has been renewed) Discharge Condition Upon Discharge: stable Discharge Disposition Patient was discharged to Home with Home Health(06) Discharge Instructions Discharge Instructions Follow up with: Primary care doctor in 1 week Call MD/Return to Hospital if: fevers, chest pain, SOB Services Upon Discharge: home health services Activity: resume normal activities Yolanda Saez M.D. Jan 28, 2018 08:47
== END 2018-01-21 21:40 | disposition home health service (06) | DRG 291 ==
LOC: EDBD 21:28 → EMR 21:48 → 2E 01-17 02:22 → EDBEDREQ 01-17 04:10 → 4W 01-20 15:17
DX: I11.0 Hypertensive heart disease with heart failure (principal); J18.9 Pneumonia, unspecified organism; E46 Unspecified protein-calorie malnutrition; I27.20 Pulmonary hypertension, unspecified; Z68.41 Body mass index [BMI] 40.0-44.9, adult; L03.311 Cellulitis of abdominal wall; E66.01 Morbid (severe) obesity due to excess calories; E83.42 Hypomagnesemia; N39.0 Urinary tract infection, site not specified; I50.33 Acute on chronic diastolic (congestive) heart failure; I10 Essential (primary) hypertension; M79.3 Panniculitis, unspecified; E87.6 Hypokalemia; F32.9 Major depressive disorder, single episode, unspecified; G47.33 Obstructive sleep apnea (adult) (pediatric); Z85.3 Personal history of malignant neoplasm of breast; Z88.0 Allergy status to penicillin; Z88.8 Allergy status to other drugs, medicaments and biological substances; Z88.6 Allergy status to analgesic agent; Z88.2 Allergy status to sulfonamides; B36.9 Superficial mycosis, unspecified; K21.9 Gastro-esophageal reflux disease without esophagitis; Z91.19 Patient's noncompliance with other medical treatment and regimen; R09.02 Hypoxemia; J45.909 Unspecified asthma, uncomplicated; Z88.1 Allergy status to other antibiotic agents; K43.9 Ventral hernia without obstruction or gangrene
CPT/HCPCS: 36415; 36600; 71045; 71250; 74176; 74230; 80048; 80053; 80200; 80202; 81003; 82550; 82553; 82803; 83605; 83735; 83880; 84100; 84484; 85025; 85379; 85651; 86140; 86710; 87040; 87086; 87181; 93005; 93306; 93970; 94640; 94664; 94760; 99285; J7620; J8499